=== PATIENT | male | born 2000 | race Caucasian/White ===

== ENCOUNTER 2021-04-10 17:49 | Emergency (ER) | payer OTHER, SELFPAY ==
--- NOTE | 2021-04-10 07:33 | ECG_ITS ---
Test Reason : TACHY Blood Pressure : / mmHG Vent. Rate : 154 BPM Atrial Rate : 156 BPM P-R Int : 000 ms QRS Dur : 142 ms QT Int : 340 ms P-R-T Axes : 000 224 036 degrees QTc Int : 544 ms Wide QRS tachycardia with occasional Premature ventricular complexes Right bundle branch block (old) - likely SVT with abberancy Abnormal ECG When compared with ECG of 15-FEB-2020 15:38, Wide QRS tachycardia has replaced Sinus rhythm Vent. rate has increased BY 64 BPM Referred By: Torres Daley Electronically Signed By:Paul Ny
[2021-04-10 17:59] VITALS: BP 116/75; PULSE 116; PULSE 73; RESP 16; TEMP 36.8; O2SAT 96; BMI 19.5
--- NOTE | 2021-04-10 18:14 | ED.ARRPALP ---
HPI - Arrhythmia/Palpitations General Chief Complaint: Arrhythmia/Palpitations Stated Complaint: SVT CHEST PAIN Time Seen by Provider: 04/10/21 18:13 Source: patient Mode of arrival: ambulatory Limitations: no limitations History of Present Illness HPI narrative: Patient's history of tetralogy of Fallot is status post repair SVT on verapamil 240 mg daily missed his dosed today noticed palpitations since yesterday evening. Patient does get palpitation off and on this time is not going away no dizziness no shortness of breath feel little chest discomfort with palpitations. MD complaint: rapid heart beat Related Data Allergies Allergy/AdvReac Type Severity Reaction Status Date / Time citalopram [CITALOPRAM] Allergy Severe THROAT Unverified 08/18/20 19:43 SWELLING, ANXIETY diphenhydramine Allergy Difficulty Verified 04/10/21 18:02 [From Benadryl] Breathing Review of Systems Review of Systems: Constitutional : No Weight loss, No Fever, No Chills ENT/Mouth : No sore throat, No Rhinorrhea Eyes: No Eye Pain, No Swelling Cardiovascular : No Chest Pain, + palpitations Respiratory : No Cough, No Sputum, no shortness of breath Gastrointestinal : no Nausea, No Vomiting, No Diarrhea, No abdominal Pain, no black stools Genitourinary : No Dysuria, No Urinary Frequency Musculoskeletal : No joint pain, No Myalgias, No Joint Swelling Skin : No Skin Lesions, No rash Neuro : No Weakness, No Numbness, No Dizziness, No Headache Psych : No Anxiety/Panic, No Depression Heme/Lymph: No Bruising, No Lymphadenopathy Endocrine : No Polyuria, No Polydipsia All other systems reviewed and are negative COUNTS INCLUDE 234 BEDS AT THE [facility] Past Medical History Medical History RBBB SVT (supraventricular tachycardia) Tetralogy of Fallot Social History Social History Advance Directives: No Advance Directives Information Provided: Yes Physical Exam Vital Signs: Vital Signs: Last Vital Signs Temp 98.2 F 04/10/21 17:59 Pulse 153 H 04/10/21 18:26 Resp 16 04/10/21 17:59 BP 122/62 04/10/21 18:26 Pulse Ox 96 04/10/21 17:59 Body Mass Index 19.5 Appearance: Alert. Oriented X3. No acute distress. Eyes: PERRLA, No Nystagmus ENT: Pharynx normal. Oral Mucosa moist Neck: Normal inspection. Neck supple. CVS: Sinus tachycardia, soft systolic murmur at base, Pulses normal. Respiratory: No respiratory distress. Equal air entry bilateral, no wheezing/rales/rhonchi Abdomen: Soft and nontender. Bowel sounds are present, no mass palpable, no CVA tenderness Skin: Skin warm and dry. Normal skin color. Normal skin turgor. Extremities: No lower extremity edema. No calf tenderness Neuro: Oriented X 3. No motor deficit. No sensory deficit.No cerebellar signs , cranial nerves II-XII intact MDM - Arrhythmia/Palpitations MDM Narrative Medical decision making narrative: Patient with supraventricular tachycardia came with heart rate of 130s to 150s missed his dose of verapamil, history of tetralogy of Fallot. Patient responded to 5 mg of Lopressor heart rate is 61 beats per minute sinus discharge patient home advised to take his verapamil on time has a follow-up appointment with control room operator this week Differential Diagnosis Differential diagnosis: Likely palpitations and supraventricular tachycardia ECG Data Attestation: I personally reviewed and interpreted this ECG as follows: Interpretation: Wide QRS tachycardia had bundle-branch block heart rate 154 beats per minute no acute ST T wave changes no acute ischemia Discharge Plan Discharge Clinical Impression: Supraventricular tachycardia Patient Disposition: Home, Self-Care Instructions: Supraventricular Tachycardia (ED) Additional Instructions: Continue taking your medications on time Follow up with control room operator as scheduled
[2021-04-10 18:26] VITALS: BP 122/62; PULSE 153
[2021-04-10] MEDS: Metoprolol Tartrate 5 MG/5 ML VIAL IVPUSH (18:26)
== END 2021-04-10 19:15 | disposition home or self-care (01) ==
PROVIDERS: Emergency Provider Internal Medicine
DX: I47.1 Supraventricular tachycardia (principal); R00.2 Palpitations
CPT/HCPCS: 93005; 96374; 99283; 99284

== ENCOUNTER 2021-04-23 08:45 | Emergency (ER) | payer OTHER, SELFPAY ==
[2021-04-23 08:53] VITALS: BP 130/78; BP 135/72; PULSE 83; PULSE 98; RESP 16; TEMP 37.2; O2SAT 95; BMI 19.3
--- NOTE | 2021-04-23 09:16 | ED.WOUNDLAC ---
HPI - Wound/Laceration General Chief Complaint: Wound/Laceration Stated Complaint: LAFT ARM LAC, BLEEDING CONTROLLED,ACCIDENTAL Time Seen by Provider: 04/23/21 09:01 Source: patient Mode of arrival: ambulatory Limitations: no limitations History of Present Illness HPI narrative: Patient presents to the ED for left forearm laceration. Patient states he was cut by glass from his window that was already shattered. Patient states he was cleaningthe glass and got cut. Patient unknown when he had his last tetanus shot. Denies any glass particles get into his cut. Patient denies any other trauma Related Data Allergies Allergy/AdvReac Type Severity Reaction Status Date / Time citalopram [CITALOPRAM] Allergy Severe THROAT Unverified 08/18/20 19:43 SWELLING, ANXIETY diphenhydramine Allergy Difficulty Verified 04/10/21 18:02 [From Benadryl] Breathing Review of Systems Review of Systems: Yes all other systems are reviewed and are negative Constitutional: Constitutional: Reports as per HPI and Reports no additional constitutional complaints Eyes: Eyes: Reports as per HPI and Reports no additional eye complaints ENT: Reports system reviewed and no additional complaints, except as documented and Reports as per HPI Cardiovascular: Cardiovascular: Reports as per HPI and Reports no additional cardiovascular complaints Respiratory: Respiratory: Reports as per HPI and Reports no additional respiratory complaints Gastrointestinal: Gastrointestinal: Reports as per HPI and Reports no additional gastrointestinal complaints Genitourinary: Genitourinary: Reports no additional male genitourinary complaints and Reports as per HPI Musculoskeletal: Musculoskeletal: Reports no additional musculoskeletal complaints and Reports as per HPI Comments: Left forearm laceration Neurologic: Reports system reviewed and no additional complaints, except as documented and Reports as per HPI Psychiatric: Psychiatric: Reports no additional psychiatric complaints and Reports as per HPI [facility] Past Medical History Medical History (Updated 04/23/21 @ 11:03 by BAM [place]) HTN (hypertension) RBBB SVT (supraventricular tachycardia) Tetralogy of Fallot Social History Social History Advance Directives: No Advance Directives Information Provided: No Physical Exam Vital Signs: Vital Signs: Last Vital Signs Temp 98.9 F 04/23/21 08:53 Pulse 98 04/23/21 08:53 Resp 16 04/23/21 08:53 BP 135/72 04/23/21 08:53 Pulse Ox 95 04/23/21 08:53 Body Mass Index 19.3 Const: General: cooperative, healthy appearing, comfortable, no acute distress and well developed Orientation/consciousness: oriented to time and patient oriented x3 HENMT: Head: Yes normal to inspection, Yes No palpable skull fracture present, Yes normocephalic, Yes atraumatic and Yes abrasion Eyes: General: appearance normal, both eyes and all related structures Neck: Neck: Yes normal visual inspection, Yes full ROM, Yes no lymphadenopathy, Yes no meningeal signs, Yes trachea midline, Yes supple and Yes tender Chest: Chest palpation & inspection: normal inspection of the chest and normal palpation of entire chest wall Resp: Effort & Inspection: normal respiratory effort and able to speak in complete sentences Auscultation: clear to auscultation bilaterally GI: Inspection: Yes normal to inspection and No abdominal wall ecchymosis Palpation (GI): Soft to palpation, not firm, nontender, no guarding and not rigid : General: No CVA tenderness and Yes no CVA tenderness Back/Spine/Pelvis: Back: no CVA tenderness, No CVA tenderness and No back tenderness Skin: General skin exam: no rashes or lesions noted and elasticity normal Neuro: General: oriented to time, patient oriented x3, no meningeal signs and CN's II-XI intact bilaterally Cranial nerves: Yes CN's II-XII intact bilaterally Extrem: Other: Left upper extremity: Positive for 1.5 cm laceration. No active bleeding. Rest of upper extremity for trauma per vascular/motor/neuro exam is intact. Course Course Course Narrative: No x-ray indicated. Laceration superficial will cool washout. Reevaluation(s) Reevaluation #1: Wound clean with sterile saline and Betadine iodine. 6 mL of 2% lidocaine placed into wound to left forearm. Ice 3 sutures were used. Four sutures placed. Reevaluation #2: During washout of wound fluid got into upper eyelid fluid with possible blood. Patient agreeable for labs for exposure check for HIV hepatitis MDM - Wound/Laceration MDM Narrative Medical decision making narrative: Laceration Lab Data Result diagrams: 04/23/21 10:20 04/23/21 10:20 Labs: Lab Results 04/23/21 04/23/21 04/23/21 Range/Units 10:20 10:20 10:20 WBC 6.7 (4.8-10.8) X10*3/uL RBC 5.94 H (4.60-5.80) X10*6/uL Hgb 17.2 (14.0-18.0) g/dl Hct 52.3 H (42-52) % MCV 88.0 (80-98) fL MCH 29.0 (27.0-33.0) pg MCHC 32.9 (31.0-36.0) g/dl RDW 11.9 (11.0-16.0) % Plt Count 259 (160-400) X10*3/uL MPV 11.1 (9.4-12.4) fL Immature Gran % (Auto) 0.3 (0.0-0.4) % Neut % (Auto) 72.8 (45-73) % Lymph % (Auto) 16.5 L (20-40) % Hill % (Auto) 7.7 (2-11) % Eos % (Auto) 2.1 (0-4) % Baso % (Auto) 0.6 (0-2) % Lymph # (Auto) 1.1 L (1.2-4.9) X10*3/uL Hill # (Auto) 0.5 (0.1-1.2) X10*3/uL Eos # (Auto) 0.1 (0.0-0.4) X10*3/uL Baso # (Auto) 0.0 (0.0-0.2) X10*3/uL Abs Immat Gran (auto) 0.02 (0.00-0.03) X10*3/uL Absolute Neuts (auto) 4.8 (2.0-8.3) X10*3/uL Absolute Nucleated RBC 0.000 (0.0-0.012) X10*3/uL Nucleated RBC % (auto) 0.0 (0.0-0.2) /100WBC Sodium 142 (135-145) mmol/L Potassium 5.1 (3.3-5.1) mmol/L Chloride 106 (96-108) mmol/L Carbon Dioxide 26 (22-29) mmol/L Anion Gap 15 (12-20) BUN 15 (9-16) mg/dL Creatinine 0.92 (0.5-1.4) mg/dL Estim Creat Clear Calc 111.3 Estimated GFR > 60 Random Glucose 87 (60-115) mg/dL Calcium 10.4 H (8.4-10.2) mg/dL Total Bilirubin 1.0 (0.0-1.0) mg/dL Direct Bilirubin 0.3 (0.0-0.5) mg/dL AST 23 (5-37) U/L ALT 20 (0-40) U/L Alkaline Phosphatase 108 (39-117) U/L Total Protein 8.2 H (6.5-8.0) g/dL Albumin 5.0 (3.5-5.0) g/dL HIV 1&2 Ab/P24 Ag 4thGn Nonreactive (Nonreactive) Discharge Plan Discharge Clinical Impression: Laceration Patient Disposition: Home, Self-Care Instructions: Laceration (ED) Additional Instructions: Return to the ED immediately for swelling upper extremity, foul odor, redness, pus discharge, chest pain, shortness of breath, or any other concerning symptoms. Sutures should be removed in 11 days at any urgent Care, your [facility] or dizzy ER. Interventions: ED Discharge Assessment Last Done: 04/23/21 11:22 Discharge Date/Time: 04/23/21 11:23
[2021-04-23] MEDS: Diphth,Pertus(ACell),Tet Adult 0.5 ML SYRINGE IM (09:17)
[2021-04-23] MEDS: Lidocaine HCl 2 % MPF 5 ML VIAL INFILTRATI ×2 (09:18)
[2021-04-23 10:24] LABS: MANUAL DIFF FLAG NO
[2021-04-23 10:25] LABS: Basophils Percent Auto 0.6 % (0-2); Eosinophils Absolute Auto 0.1 X10*3/uL (0.0-0.4); Eosinophils Percent Auto 2.1 % (0-4); Hematocrit 52.3 % (42-52); Hemoglobin 17.2 g/dl (14.0-18.0); Imm Gran Abs Auto 0.02 X10*3/uL (0.00-0.03); Imm Gran Pct Auto 0.3 % (0.0-0.4); Lymphocytes Absolute Auto 1.1 X10*3/uL (1.2-4.9); Lymphocytes Percent Auto 16.5 % (20-40); Mean Corpuscular HGB Conc 32.9 g/dl (31.0-36.0); Mean Platelet Volume 11.1 fL (9.4-12.4); Monocytes Absolute Auto 0.5 X10*3/uL (0.1-1.2); Monocytes Percent Auto 7.7 % (2-11); Neutrophils Absolute Auto 4.8 X10*3/uL (2.0-8.3); Neutrophils Percent Auto 72.8 % (45-73); Platelet Count 259 X10*3/uL (160-400); Red Blood Count 5.94 X10*6/uL (4.60-5.80); Red Cell Distribution Width 11.9 % (11.0-16.0); White Blood Count 6.7 X10*3/uL (4.8-10.8)
[2021-04-23 10:52] LABS: Alanine Aminotransferase 20 U/L (0-40); Alkaline Phosphatase 108 U/L (39-117); Anion Gap 15 (12-20); Aspartate Amino Transferase 23 U/L (5-37); Bilirubin Direct 0.3 mg/dL (0.0-0.5); Blood Urea Nitrogen 15 mg/dL (9-16); Calcium 10.4 mg/dL (8.4-10.2); Carbon Dioxide 26 mmol/L (22-29); Chloride 106 mmol/L (96-108); Creatinine Clr Calc Pharmacy 111.3; Estimated Glomerular Filt Rate > 60; Glucose Random 87 mg/dL (60-115); Potassium 5.1 mmol/L (3.3-5.1); Sodium 142 mmol/L (135-145); Total Protein 8.2 g/dL (6.5-8.0)
[2021-04-23 12:00] LABS: HIV AB/AG Nonreactive (Nonreactive)
[2021-04-24 08:44] LABS: HBS Num1 8.32 mIU/mL (0-7.99); HBc Num1 0.08 S/CO (0.00-0.79); Hepatitis B Core Antibody Nonreactive (Nonreactive); ~HepC Num1 0.07 S/CO (0.00-0.79); ~Hepatitis C Antibody Nonreactive (Nonreactive)
[2021-04-24 08:45] LABS: HBsAGNum1 0.19 S/CO (0.00-0.99); HIV Num 1 0.05 S/CO (0.00-0.99); Hepatitis B Surface Antigen Negative (Negative)
[2021-04-24 10:12] LABS: HBS Num2 9.02 mIU/mL (0-7.99); HBS Num3 8.86 mIU/mL (0-7.99); ~Hepatitis B Surface Antibody GRAYZONE (Nonreactive)
== END 2021-04-23 11:23 | disposition home or self-care (01) ==
PROVIDERS: Physician Assistant; Emergency Provider Emergency Medicine
DX: S51.812A Laceration without foreign body of left forearm, initial encounter (principal); M79.632 Pain in left forearm; W25.XXXA Contact with sharp glass, initial encounter; Y93.9 Activity, unspecified; Y92.9 Unspecified place or not applicable; Y99.9 Unspecified external cause status
CPT/HCPCS: 12001; 36415; 80048; 80076; 85025; 86704; 86706; 86803; 87340; 90471; 90715; 99283; 99284

== ENCOUNTER 2021-05-01 18:10 | Emergency (ER) | payer OTHER, SELFPAY ==
[2021-05-01 18:59] VITALS: BP 123/73; PULSE 85; RESP 20; TEMP 36.2; O2SAT 93; BMI 26.6
--- NOTE | 2021-05-01 19:47 | ED.GENADULT ---
HPI - General Adult General Chief complaint: General Medical Stated complaint: suture removal Time Seen by Provider: 05/01/21 19:25 Source: patient Mode of arrival: ambulatory Limitations: no limitations History of Present Illness HPI narrative: Patient here for suture removal on the left forearm. Placed 04/23 No issues Related Data Allergies Allergy/AdvReac Type Severity Reaction Status Date / Time citalopram [CITALOPRAM] Allergy Severe THROAT Verified 05/01/21 18:58 SWELLING, ANXIETY diphenhydramine Allergy Difficulty Verified 05/01/21 18:58 [From Benadryl] Breathing Review of Systems Review of Systems: Yes all other systems are reviewed and are negative Constitutional: Constitutional: Reports no additional constitutional complaints, Denies body ache(s), Denies chills, Denies fever(s), Denies headache(s) and Denies weakness Eyes: Eyes: Reports no additional eye complaints and Denies change in vision ENT: Reports system reviewed and no additional complaints, except as documented, Denies dizziness, Denies headache(s), Denies nasal congestion, Denies nasal discharge and Denies neck pain Cardiovascular: Cardiovascular: Reports no additional cardiovascular complaints, Denies chest pain, Denies leg edema and Denies dyspnea Respiratory: Respiratory: Reports no additional respiratory complaints, Denies cough and Denies dyspnea Gastrointestinal: Gastrointestinal: Reports no additional gastrointestinal complaints, Denies abdominal pain, Denies diarrhea, Denies nausea and Denies vomiting Genitourinary: Genitourinary: Denies urinary incontinence Musculoskeletal: Musculoskeletal: Reports no additional musculoskeletal complaints, Denies back pain, Denies arthralgias, Denies joint swelling, Denies neck pain, Denies numbness and Denies tingling Integumentary/Breasts: Skin/Breast: Reports system reviewed and no additional complaints, except as docu and Denies rash Neurologic: Reports system reviewed and no additional complaints, except as documented, Denies Abnormal speech present, Denies dizziness, Denies headache(s), Denies numbness, Denies tingling and Denies weakness PMFSH Past Medical History Attestation statement: The following information was validated with the patient. Source: old records reviewed and nursing notes reviewed Medical History HTN (hypertension) RBBB SVT (supraventricular tachycardia) Tetralogy of Fallot Social History Social History Advance Directives: No Advance Directives Information Provided: No Physical Exam Vital Signs: Vital Signs: Last Vital Signs Temp 97.2 F 05/01/21 18:59 Pulse 85 05/01/21 18:59 Resp 20 05/01/21 18:59 BP 123/73 05/01/21 18:59 Pulse Ox 93 05/01/21 18:59 Body Mass Index 26.6 Const: General: cooperative, healthy appearing, comfortable and no acute distress Orientation/consciousness: patient oriented x3 Limitations: no limitations HENMT: Head: Yes normal to inspection Ears: hearing grossly normal bilaterally General nose exam: Normal external nose present Face and sinus: Yes normal facial exam Mouth: Normal oral and palatal mucosa present Throat: Yes posterior oropharynx normal Eyes: General: appearance normal, both eyes and all related structures Pupils: Equal, round and reactive pupils present Neck: Neck: Yes normal visual inspection Chest: Chest palpation & inspection: normal inspection of the chest Resp: Effort & Inspection: normal respiratory effort Auscultation: clear to auscultation bilaterally Cardio: Rate: regular rate Rhythm: regular rhythm Peripheral pulses: Peripheral pulses 2+ throughout GI: Inspection: Yes normal to inspection Palpation (GI): Soft to palpation and nontender Auscultation: normal bowel sounds Back/Spine/Pelvis: Thoracic/Lumbar Spine: thoracic and lumbar spine normal to inspection Skin: General skin exam: no rashes or lesions noted Neuro: General: patient oriented x3, no focal motor deficits and normal sensation to monofilament Cranial nerves: Yes Equal, round and reactive pupils present Cognition (Neuro): normal cognition Speech: No Abnormal speech present Gait exam (Neuro): Normal gait present Motor exam (neuro): 5/5 motor strength present throughout Extrem: Other: The left forearm on the dorsal aspect there are 4 sutures present. Mild erythema around the site but no fluctuance, or induration or drainage General: Yes normal to inspection, Yes no pedal edema and Yes no calf tenderness Course Course Course Narrative: Sutures removed from left forearm. Steri-Strips applied. Wound care provided. Reviewed worrisome signs and symptoms and when to return to the emergency department. Comfortable discharge home. Medical Decision Making MDM Narrative Medical decision making narrative: Four sutures removed from left forearm. Mild erythema at the site with no drainage, fluctuance or tenderness. Steri-Strips placed. Patient tolerated well Discharge Plan Discharge Clinical Impression: Visit for suture removal Patient Disposition: Home, Self-Care Instructions: Stitches Removal (ED) Referrals: Physician,Unknown [Primary Care Provider] - 2 days Discharge Date/Time: 05/01/21 19:48
== END 2021-05-01 19:48 | disposition home or self-care (01) ==
PROVIDERS: Emergency Provider Emergency Medicine
DX: Z48.02 Encounter for removal of sutures (principal); S51.812D Laceration without foreign body of left forearm, subsequent encounter; W45.8XXD Other foreign body or object entering through skin, subsequent encounter
CPT/HCPCS: 99283

== ENCOUNTER 2021-06-08 19:26 | Emergency (ER) | payer OTHER, SELFPAY ==
--- NOTE | ~2021-06-08 | XR_ITS ---
EXAMINATION: XR HAND, RIGHT CLINICAL INFORMATION: Injury COMPARISON: None TECHNIQUE: 4 views of the right hand FINDINGS: Soft tissue swelling dorsal to the 5th MCP joint. There is no acute fracture or dislocation. No radiopaque foreign body. XR/XR hand wrist RT IMPRESSION: No fracture.
[2021-06-08 19:33] VITALS: BP 139/74; PULSE 144; RESP 16; TEMP 36.2; O2SAT 100; BMI 18.2
[2021-06-08 20:30] VITALS: PULSE 96; RESP 18; O2SAT 100
--- NOTE | 2021-06-08 20:30 | PC.NURSE ---
COLD PACK GIVEN TO RIGHT HAND.
--- NOTE | 2021-06-08 20:56 | ED.EXTPRO ---
HPI - Extremity Problem General Chief complaint: Extremity Injury, Upper Stated complaint: hand inj Time Seen by Provider: 06/08/21 19:47 Source: patient Mode of arrival: ambulatory Limitations: no limitations History of Present Illness HPI Narrative: 21-year-old male here with right hand pain. Patient tells me he got very angry today and decided to punch a brick wall twice with his right hand. He now has pain, swelling and difficulty using the hand. Related Data Allergies Allergy/AdvReac Type Severity Reaction Status Date / Time citalopram [CITALOPRAM] Allergy Severe THROAT Verified 05/01/21 18:58 SWELLING, ANXIETY diphenhydramine Allergy Difficulty Verified 05/01/21 18:58 [From Benadryl] Breathing Review of Systems Review of Systems: Yes all other systems are reviewed and are negative Constitutional: Constitutional: Reports no additional constitutional complaints, Denies body ache(s), Denies chills, Denies fever(s), Denies headache(s) and Denies weakness Eyes: Eyes: Reports no additional eye complaints and Denies change in vision ENT: Reports system reviewed and no additional complaints, except as documented, Denies dizziness, Denies headache(s), Denies nasal congestion, Denies nasal discharge and Denies neck pain Cardiovascular: Cardiovascular: Reports no additional cardiovascular complaints, Denies chest pain, Denies leg edema and Denies dyspnea Respiratory: Respiratory: Reports no additional respiratory complaints, Denies cough and Denies dyspnea Gastrointestinal: Gastrointestinal: Reports no additional gastrointestinal complaints, Denies abdominal pain, Denies diarrhea, Denies nausea and Denies vomiting Genitourinary: Genitourinary: Denies urinary incontinence Musculoskeletal: Musculoskeletal: Reports no additional musculoskeletal complaints, Denies back pain, Reports arthralgias, Reports joint swelling, Denies neck pain, Denies numbness and Denies tingling Integumentary/Breasts: Skin/Breast: Reports system reviewed and no additional complaints, except as docu and Denies rash Neurologic: Reports system reviewed and no additional complaints, except as documented, Denies Abnormal speech present, Denies dizziness, Denies headache(s), Denies numbness, Denies tingling and Denies weakness PMFSH Past Medical History Attestation statement: The following information was validated with the patient. Source: old records reviewed and nursing notes reviewed Medical History HTN (hypertension) RBBB SVT (supraventricular tachycardia) Tetralogy of Fallot Social History Social History Advance Directives: No Advance Directives Information Provided: No Physical Exam Vital Signs: Vital Signs: Last Vital Signs Temp 97.1 F 06/08/21 19:33 Pulse 96 06/08/21 20:30 Resp 18 06/08/21 20:30 BP 139/74 06/08/21 19:33 Pulse Ox 100 06/08/21 20:30 Body Mass Index 18.2 Const: General: cooperative, healthy appearing, comfortable and no acute distress Orientation/consciousness: patient oriented x3 Limitations: no limitations HENMT: Head: Yes normal to inspection Ears: hearing grossly normal bilaterally General nose exam: Normal external nose present Face and sinus: Yes normal facial exam Mouth: Normal oral and palatal mucosa present Throat: Yes posterior oropharynx normal Eyes: General: appearance normal, both eyes and all related structures Pupils: Equal, round and reactive pupils present Neck: Neck: Yes normal visual inspection Chest: Chest palpation & inspection: normal inspection of the chest Resp: Effort & Inspection: normal respiratory effort Auscultation: clear to auscultation bilaterally Cardio: Rate: regular rate Rhythm: regular rhythm Peripheral pulses: Peripheral pulses 2+ throughout GI: Inspection: Yes normal to inspection Palpation (GI): Soft to palpation and nontender Auscultation: normal bowel sounds Back/Spine/Pelvis: Thoracic/Lumbar Spine: thoracic and lumbar spine normal to inspection Skin: General skin exam: no rashes or lesions noted Neuro: General: patient oriented x3, no focal motor deficits and normal sensation to monofilament Cranial nerves: Yes Equal, round and reactive pupils present Cognition (Neuro): normal cognition Speech: No Abnormal speech present Gait exam (Neuro): Normal gait present Motor exam (neuro): 5/5 motor strength present throughout Extrem: General: Yes normal to inspection Hand/finger images: 1. Moderate swelling, ecchymosis and tenderness. patient having significant difficulty with flexion of the 4th and 5th digit due to pain. No paresthesias. Cap refills normal Course Course Course Narrative: right hand swelling and pain after a injury just prior to arrival. will check x-rays 2030- x-ray show no bony abnormality. Due to the amount of swelling, ecchymosis, tenderness with difficulty range of motion I am concerned there may be a small boxer's fracture that is not visualized. Therefore, I will place the patient in a ulnar gutter splint and have him follow-up with Orthopedics. Reviewed worrisome signs and symptoms and when to return to the emergency department. Comfortable discharge home. Procedures Orthopedic Splinting/Casting Injury #1: Side: right Upper Extremity Injury Location: hand Upper Extremity Immobilizer: ulnar gutter MDM - Extremity (Nontraumatic) Medical Records Attestation: I reviewed the patient's medical records. Lab Data Attestation: I reviewed the patient's lab results. Imaging Data right hand xray: Attestation: I personally reviewed and interpreted this imaging study as follows: Radiologist's impression: EXAMINATION: XR HAND, RIGHT CLINICAL INFORMATION: Injury COMPARISON: None TECHNIQUE: 4 views of the right hand FINDINGS: Soft tissue swelling dorsal to the 5th MCP joint. There is no acute fracture or dislocation. No radiopaque foreign body. XR/XR hand wrist RT IMPRESSION: No fracture. Discharge Plan Discharge Clinical Impression: Contusion of hand, right Qualifiers: Encounter type: initial encounter Qualified Code(s): S60.221A - Contusion of right hand, initial encounter Patient Disposition: Home, Self-Care Instructions: Contusion in Adults (ED) Additional Instructions: your x-rays did not show any fracture. However due to the amount of pain and swelling with limited range of motion we are placing you in a splint. You need to follow-up with the hand surgeon as discussed Do not get the splint wet Elevate the hand and do not use it. Motrin or Tylenol for pain as needed Referrals: Madai Patton MD [Physician] - 2 days
== END 2021-06-08 21:37 | disposition home or self-care (01) ==
PROVIDERS: Emergency Provider Emergency Medicine Emergency Medical Services
DX: S60.221A Contusion of right hand, initial encounter (principal); I10 Essential (primary) hypertension; W22.09XA Striking against other stationary object, initial encounter; Y93.9 Activity, unspecified; Y92.9 Unspecified place or not applicable; Y99.9 Unspecified external cause status
CPT/HCPCS: 29125; 73110; 73130; 99283; 99284

== ENCOUNTER 2021-06-14 12:23 | Outpatient (REF) | payer OTHER, SELFPAY ==
--- NOTE | ~2021-06-14 | XR_ITS ---
EXAMINATION: XR HAND, RIGHT CLINICAL INFORMATION: Right hand pain. COMPARISON: Right hand and wrist radiographs dated 06/08/2021. TECHNIQUE: PA, lateral, and oblique views of the right hand. FINDINGS: The bones and soft tissues are normal. No fracture. Alignment is anatomic. Joint spaces are maintained. No erosions or soft tissue calcifications. XR/XR hand RT min 3V IMPRESSION: Unremarkable examination.
== END 2021-06-14 12:24 | disposition home or self-care (01) ==
LOC: HO.HOSX 12:23
PROVIDERS: Visit Provider Physician Assistant
DX: M79.641 Pain in right hand (principal)
CPT/HCPCS: 73130; 99202

== ENCOUNTER 2021-07-12 06:01 | Outpatient (REF) | payer OTHER, SELFPAY | END 2021-07-12 06:02 | disposition home or self-care (01) | LOC: HO.HOSX 06:01 | PROVIDERS: Visit Provider Physician Assistant | DX: Z13.89 Encounter for screening for other disorder (principal) ==

== ENCOUNTER 2021-07-14 18:46 | Emergency (ER) | payer OTHER, SELFPAY ==
--- NOTE | ~2021-07-14 | XR_ITS ---
EXAMINATION: XR HAND, RIGHT CLINICAL INFORMATION: Pain COMPARISON: None TECHNIQUE: PA, lateral, and oblique views of the right hand. FINDINGS: The bones and soft tissues are normal. No fracture. Alignment is anatomic. Joint spaces are maintained. No erosions or soft tissue calcifications. XR/XR hand RT 2V IMPRESSION: Normal right hand.
[2021-07-14 18:53] VITALS: BP 123/69; PULSE 81; RESP 16; TEMP 36.5; O2SAT 98; BMI 18.1
--- NOTE | 2021-07-14 20:40 | ED_ITS ---
HPI - Extremity Problem General Chief complaint: Extremity Problem Stated complaint: KNUCKLE INJ Time Seen by Provider: 07/14/21 19:34 Source: patient Mode of arrival: ambulatory Limitations: no limitations History of Present Illness HPI Narrative: patient tells me initially he had an injury on June 08 with a hand strike. Was placed in a splint and followed up with Orthopedics due to bruising and pain on exam. Initial x-ray negative. Patient tells me he followed up with orthopedics on June 14. He was then placed in a velcro splint and recommended follow-up July 12 to see how he was feeling. Patient did not go to his follow-up appointment. He tells me he continues to have pain and bruising and swelling and is here for re-evaluation. No new injury or trauma. Related Data Home Medications Medication Instructions Recorded Confirmed No Known Home Meds 06/14/21 06/14/21 Allergies Allergy/AdvReac Type Severity Reaction Status Date / Time citalopram [CITALOPRAM] Allergy Severe THROAT Verified 06/14/21 12:35 SWELLING, ANXIETY diphenhydramine Allergy Difficulty Verified 06/14/21 12:35 [From Benadryl] Breathing Review of Systems Review of Systems: Yes all other systems are reviewed and are negative Constitutional: Constitutional: Reports no additional constitutional complaints, Denies body ache(s), Denies chills, Denies fever(s), Denies hea dache(s) and Denies weakness Eyes: Eyes: Reports no additional eye complaints and Denies change in vision ENT: Reports system reviewed and no additional complaints, except as documented, Denies dizziness, Denies headache(s), Denies nasal congestion, Denies nasal discharge and Denies neck pain Cardiovascular: Cardiovascular: Reports no additional cardiovascular complaints, Denies chest pain, Denies leg edema and Denies dyspnea Respiratory: Respiratory: Reports no additional respiratory complaints, Denies cough and Denies dyspnea Gastrointestinal: Gastrointestinal: Reports no additional gastrointestinal complaints, Denies abdominal pain, Denies diarrhea, Denies nausea and Denies vomiting Genitourinary: Genitourinary: Denies urinary incontinence Musculoskeletal: Musculoskeletal: Reports no additional musculoskeletal complaints, Denies back pain, Reports arthralgias, Reports joint swelling, Denies neck pain, Denies numbness and Denies tingling Integumentary/Breasts: Skin/Breast: Reports system reviewed and no additional complaints, except as docu and Denies rash Neurologic: Reports system reviewed and no additional complaints, except as documented, Denies Abnormal speech present, Denies dizziness, Denies headache(s), Denies numbness, Denies tingling and Denies weakness PMFSH Past Medical History Attestation statement: The following information was validated with the patient. Source: old records reviewed and nursing notes reviewed Medical History HTN (hypertension) RBBB SVT (supraventricular tachycardia) Tetralogy of Fallot Social History Social History Alcohol intake: current Alcohol intake frequency: holidays/special occasions only Patient Tobacco Use Status: Never used Tobacco Advance Directives: No Advance Directives Information Provided: No Physical Exam Vital Signs: Vital Signs: Last Vital Signs Temp 97.7 F 07/14/21 18:53 Pulse 81 07/14/21 18:53 Resp 16 07/14/21 18:53 BP 123/69 07/14/21 18:53 Pulse Ox 98 07/14/21 18:53 Body Mass Index 18.1 Const: General: cooperative, healthy appearing, comfortable and no acute distress Orientation/consciousness: patient oriented x3 Limitations: no limitations HENMT: Head: Yes normal to inspection Ears: hearing grossly normal bilaterally General nose exam: Normal external nose present Face and sinus: Yes normal facial exam Mouth: Normal oral and palatal mucosa present Throat: Yes posterior oropharynx normal Eyes: General: appearance normal, both eyes and all related structures Pupils: Equal, round and reactive pupils present Neck: Neck: Yes normal visual inspection Chest: Chest palpation & inspection: normal inspection of the chest Resp: Effort & Inspection: normal respiratory effort Auscultation: clear to auscultation bilaterally Cardio: Rate: regular rate Rhythm: regular rhythm Peripheral pulses: Peripheral pulses 2+ throughout GI: Inspection: Yes normal to inspection Palpation (GI): Soft to palpation and nontender Auscultation: normal bowel sounds Back/Spine/Pelvis: Thoracic/Lumbar Spine: thoracic and lumbar spine normal to inspection Skin: General skin exam: no rashes or lesions noted Neuro: General: patient oriented x3, no focal motor deficits and normal sensation to monofilament Cranial nerves: Yes Equal, round and reactive pupils present Cognition (Neuro): normal cognition Speech: No Abnormal speech present Gait exam (Neuro): Normal gait present Motor exam (neuro): 5/5 motor strength present throughout Extrem: Other: Bruising and swelling with some pain over the distal 5th MCP Full range of motion General: Yes normal to inspection Course Course Course Narrative: 21-year-old here with complaints of right hand pain which has been persistent after an injury in June. Unfortunately he has not followed up with orthopedics as scheduled. No new injury or trauma. X-rays today show no acute finding. Patient has a velcro that he is supposed to be wearing at home. Recommend he continue to wear this. Follow-up with Orthopedics. Reviewed worrisome signs and symptoms of when to return to the emergency department. Comfortable discharge home. MDM - Extremity (Nontraumatic) Medical Records Attestation: I reviewed the patient's medical records. Lab Data Attestation: I reviewed the patient's lab results. Imaging Data hand xray: Attestation: I personally reviewed and interpreted this imaging study as follows: Radiologist's impression: [address] [address] XRay Report Signed Patient: Codey Mcdonough MR#: [id number] : 2000 Acct:[id number] Age/Sex: 21 / M ADM Date: 07/14/21 Loc: .ED Attending Dr: Ordering Physician: Sakina Flores NP Date of Service: 07/14/21 Procedure(s): XR hand RT 2V Accession Number(s): [id number] cc: Sakina Flores NP~ EXAMINATION: XR HAND, RIGHT CLINICAL INFORMATION: Pain? COMPARISON: None? TECHNIQUE: PA, lateral, and oblique views of the right hand. FINDINGS: The bones and soft tissues are normal. No fracture. Alignment is anatomic. Joint spaces are maintained. No erosions or soft tissue calcifications.? XR/XR hand RT 2V IMPRESSION: Normal right hand. Discharge Plan Discharge Clinical Impression: Hand pain, right Patient Disposition: Home, Self-Care Instructions: Arthralgia (ED) Additional Instructions: Use the splint provided by Orthopedics Call orthopedics on [place] Limit use of the hand, apply ice Prescriptions: No Action No Known Home Meds RF: 0 Referrals: Joshua Fleming MD [Physician] - 2 days Interventions: ED Discharge Assessment Last Done: 07/14/21 20:25 Discharge Date/Time: 07/14/21 20:26
== END 2021-07-14 20:26 | disposition home or self-care (01) ==
PROVIDERS: Emergency Provider Emergency Medicine
DX: M79.641 Pain in right hand (principal)
CPT/HCPCS: 73120; 99283

== ENCOUNTER 2021-07-20 17:05 | Emergency (ER) | payer OTHER, SELFPAY ==
[2021-07-20 17:24] VITALS: BP 114/77; PULSE 141; RESP 16; TEMP 36.9; O2SAT 96; BMI 18.1
--- NOTE | 2021-07-20 17:29 | ECG_ITS ---
Test Reason : TACHY Blood Pressure : / mmHG Vent. Rate : 135 BPM Atrial Rate : 044 BPM P-R Int : 000 ms QRS Dur : 160 ms QT Int : 356 ms P-R-T Axes : 000 233 038 degrees QTc Int : 534 ms Suspect limb lead reversal, interpretation assumes no reversal Wide QRS tachycardia Right bundle branch block Lateral infarct , age undetermined Cannot rule out Inferior infarct , age undetermined Abnormal ECG When compared with ECG of 10-APR-2021 18:10, Premature ventricular complexes are no longer Present Referred By: Jose Barrios Electronically Signed By:DRAGAN BARTLETT
--- NOTE | 2021-07-20 17:57 | ED.GENADULT ---
HPI - General Adult General Chief complaint: Arrhythmia/Palpitations Stated complaint: palpitations Time Seen by Provider: 07/20/21 17:50 Source: patient Mode of arrival: ambulatory Limitations: no limitations History of Present Illness HPI narrative: 21-year-old male with history of tetralogy of Fallot and status post repair, patient with history of SVT and is taking verapamil 240 mg daily to control his heart rate, patient is very normal to get palpitation heart rate of 130s, patient fell today that his palpitation is above 130. On arrival patient has heart rate of 135 patient feels better and back to his normal baseline. Related Data Home Medications Medication Instructions Recorded Confirmed No Known Home Meds 06/14/21 06/14/21 Allergies Allergy/AdvReac Type Severity Reaction Status Date / Time citalopram [CITALOPRAM] Allergy Severe THROAT Verified 06/14/21 12:35 SWELLING, ANXIETY diphenhydramine Allergy Difficulty Verified 06/14/21 12:35 [From Benadryl] Breathing Review of Systems Review of Systems: All other systems are reviewed and are negative Constitutional: Reports as per HPI and Reports no additional constitutional complaints Eyes: Reports as per HPI and Reports no additional eye complaints Reports system reviewed and no additional complaints, except as documented Cardiovascular: Reports as per HPI and Reports no additional cardiovascular complaints Respiratory: Reports as per HPI and Reports no additional respiratory complaints Gastrointestinal: Reports as per HPI and Reports no additional gastrointestinal complaints Genitourinary: Reports no additional female genitourinary complaints Musculoskeletal: Reports no additional musculoskeletal complaints Skin/Breast: Reports system reviewed and no additional complaints, except as docu Psychiatric: Reports no additional psychiatric complaints Endocrine: Reports no additional endocrine complaints Hematologic/Lymphatic: Reports no additional hematologic/lymphatic complaints Allergic/Immunologic: Reports no additional allergic/immunologic complaints Reports system reviewed and no additional complaints, except as documented and Reports Abnormal speech present [facility] Past Medical History Medical History HTN (hypertension) RBBB SVT (supraventricular tachycardia) Tetralogy of Fallot Social History Social History Alcohol intake: current Alcohol intake frequency: holidays/special occasions only Patient Tobacco Use Status: Never used Tobacco Advance Directives: No Advance Directives Information Provided: Yes Physical Exam Vital Signs: Vital Signs: Last Vital Signs Temp 98.4 F 07/20/21 17:24 Pulse 81 07/20/21 18:25 Resp 16 07/20/21 18:25 BP 118/81 07/20/21 18:25 Pulse Ox 98 07/20/21 18:25 Body Mass Index 18.1 Vital signs have been reviewed as appeared to be correct. Blood pressure normal. Heart rate elevated. Respiration rate normal. Temperature normal. Oxygen saturation normal. Appearance: Alert. Oriented X3. No acute distress. Head: Normal external exam. Normocephalic. Atraumatic. No Alexandre signs noted. No raccoon eyes noted Eyes: PERRLA. EOMI. Conjunctiva and sclera normal. Eyelids normal. ENT: TM's Normal. Pharynx normal. Uvula midline. Moist mucous membranes. No trismus noted. No drooling noted. No muffled voice noted. Neck: Normal inspection. Neck supple. FROM. No adenopathy. Thyroid Normal. No meningeal signs. No neck mass noted. CVS: 130's tachycardia.. Heart sound normal. No murmurs noted. Pulses normal throughout. Respiratory: No respiratory distress. Painless inspiration. Breath sounds normal. No wheezes/rales/rhonchi noted. Chest nontender. No accessory muscle usage noted or decreased air movement noted. Abdomen: Soft and nontender. Bowel sounds normal in all 4 quadrants. No distention noted. No organomegaly noted. No visible injury noted. Back: No CVA tenderness. Full range of motion noted. Skin: Skin warm and dry. Normal skin color. Normal skin turgor. No rashes/lesions/lacerations noted. Extremities: No lower extremity edema. Extremities exhibit normal range of motion. Extremities nontender. Neuro: Oriented X 3. Cranial nerve exam: II-XII are grossly intact No motor deficit. No sensory deficit. Reflexes normal. Course Course Course Narrative: Assessment and plan. 21-year-old history of Fallot serology repair, patient also with history of SVT. Patient presented with SVT of 140s, patient received 6 mg of adenosine and then patient converted into normal sinus rhythm. Medical Decision Making Lab Data Lab results reviewed: Yes I reviewed the patient's lab results. Result diagrams: 07/20/21 18:03 07/20/21 18:03 Labs: Lab Results 07/20/21 07/20/21 07/20/21 Range/Units 18:03 18:03 18:03 WBC 10.2 (4.8-10.8) X10*3/uL RBC 5.40 (4.60-5.80) X10*6/uL Hgb 15.8 (14.0-18.0) g/dl Hct 47.3 (42-52) % MCV 87.6 (80-98) fL MCH 29.3 (27.0-33.0) pg MCHC 33.4 (31.0-36.0) g/dl RDW 12.1 (11.0-16.0) % Plt Count 275 (160-400) X10*3/uL MPV 11.3 (9.4-12.4) fL Immature Gran % (Auto) 0.3 (0.0-0.4) % Neut % (Auto) 70.5 (45-73) % Lymph % (Auto) 18.8 L (20-40) % [place] % (Auto) 7.4 (2-11) % Eos % (Auto) 2.5 (0-4) % Baso % (Auto) 0.5 (0-2) % Lymph # (Auto) 1.9 (1.2-4.9) X10*3/uL [place] # (Auto) 0.8 (0.1-1.2) X10*3/uL Eos # (Auto) 0.3 (0.0-0.4) X10*3/uL Baso # (Auto) 0.1 (0.0-0.2) X10*3/uL Abs Immat Gran (auto) 0.03 (0.00-0.03) X10*3/uL Absolute Neuts (auto) 7.2 (2.0-8.3) X10*3/uL Absolute Nucleated RBC 0.000 (0.0-0.012) X10*3/uL Nucleated RBC % (auto) 0.0 (0.0-0.2) /100WBC Sodium 142 (135-145) mmol/L Potassium 4.3 (3.3-5.1) mmol/L Chloride 106 (96-108) mmol/L Carbon Dioxide 26 (22-29) mmol/L Anion Gap 14 (12-20) BUN 13 (9-16) mg/dL Creatinine 0.98 (0.5-1.4) mg/dL Estim Creat Clear Calc 97.7 Estimated GFR > 60 Random Glucose 80 (60-115) mg/dL Calcium 10.2 (8.4-10.2) mg/dL Magnesium 2.1 (1.6-2.6) mg/dL Troponin I High Sens < 3.5 (<3.5-35.0) ng/L ECG Data Interpretation: EKG 1. Wide QRS tachycardia at 135 beats per minutes, right bundle branch block. EKG 2. Normal sinus rhythm at 68 beats per minutes, right bundle-branch block, no change from previous EKG. Critical Care Time Critical Care Time Critical Care Time: Yes Total Critical Care Time: 60 Attestation: I spent 60 minutes providing critical care service to the patient, this including time spent at the bedside to evaluate the patient, reassess the patient, monitoring vital signs, review labs, and radiographic studies, counseling the patient/family, discussing the case with consultants, disposition the patient. Discharge Plan Discharge Clinical Impression: Palpitations, Supraventricular tachycardia Patient Disposition: Home, Self-Care Instructions: Supraventricular Tachycardia (ED) Prescriptions: No Action No Known Home Meds RF: 0 Referrals: Physician,None [Primary Care Provider] - 2 days
[2021-07-20 18:12] LABS: MANUAL DIFF FLAG NO
[2021-07-20 18:18] LABS: Basophils Absolute Auto 0.1 X10*3/uL (0.0-0.2); Basophils Percent Auto 0.5 % (0-2); Eosinophils Absolute Auto 0.3 X10*3/uL (0.0-0.4); Eosinophils Percent Auto 2.5 % (0-4); Hematocrit 47.3 % (42-52); Hemoglobin 15.8 g/dl (14.0-18.0); Imm Gran Abs Auto 0.03 X10*3/uL (0.00-0.03); Imm Gran Pct Auto 0.3 % (0.0-0.4); Lymphocytes Absolute Auto 1.9 X10*3/uL (1.2-4.9); Lymphocytes Percent Auto 18.8 % (20-40); Mean Corpuscular HGB Conc 33.4 g/dl (31.0-36.0); Mean Corpuscular Hemoglobin 29.3 pg (27.0-33.0); Mean Corpuscular Volume 87.6 fL (80-98); Mean Platelet Volume 11.3 fL (9.4-12.4); Monocytes Absolute Auto 0.8 X10*3/uL (0.1-1.2); Monocytes Percent Auto 7.4 % (2-11); Neutrophils Absolute Auto 7.2 X10*3/uL (2.0-8.3); Neutrophils Percent Auto 70.5 % (45-73); Platelet Count 275 X10*3/uL (160-400); Red Cell Distribution Width 12.1 % (11.0-16.0); White Blood Count 10.2 X10*3/uL (4.8-10.8)
[2021-07-20 18:25] VITALS: BP 118/81; PULSE 81; RESP 16; O2SAT 98
[2021-07-20] MEDS: 0.9 % Sodium Chloride 1,000 ML 999 ML IVCONT (18:35)
[2021-07-20 18:45] LABS: Anion Gap 14 (12-20); Blood Urea Nitrogen 13 mg/dL (9-16); Calcium 10.2 mg/dL (8.4-10.2); Carbon Dioxide 26 mmol/L (22-29); Chloride 106 mmol/L (96-108); Creatinine Clr Calc Pharmacy 97.7; Estimated Glomerular Filt Rate > 60; Glucose Random 80 mg/dL (60-115); Magnesium 2.1 mg/dL (1.6-2.6); Potassium 4.3 mmol/L (3.3-5.1); Sodium 142 mmol/L (135-145); Troponin-I High Sensitivity < 3.5 ng/L (<3.5-35.0)
--- NOTE | 2021-07-20 19:00 | ECG_ITS ---
Test Reason : REPEAT Blood Pressure : / mmHG Vent. Rate : 078 BPM Atrial Rate : 078 BPM P-R Int : 148 ms QRS Dur : 152 ms QT Int : 418 ms P-R-T Axes : 115 266 053 degrees QTc Int : 476 ms Suspect limb lead reversal, interpretation assumes no reversal Normal sinus rhythm with sinus arrhythmia Right bundle branch block Abnormal ECG When compared with ECG of 20-JUL-2021 17:39, Sinus rhythm has replaced Wide QRS tachycardia Vent. rate has decreased BY 57 BPM Referred By: Jose Barrios Electronically Signed By:DRAGAN BARTLETT
[2021-07-20 20:00] VITALS: BP 113/62; PULSE 60; RESP 20; TEMP 36.8; O2SAT 99
== END 2021-07-20 20:41 | disposition home or self-care (01) ==
PROVIDERS: Emergency Provider Emergency Medicine
DX: R00.2 Palpitations (principal); I10 Essential (primary) hypertension; I47.1 Supraventricular tachycardia
CPT/HCPCS: 36415; 80048; 83735; 84484; 85025; 93005; 96361; 96374; 99285; 99291; J0153

== ENCOUNTER 2021-07-27 22:58 | Emergency (ER) | payer OTHER, SELFPAY ==
[2021-07-27 23:02] VITALS: BP 119/73; PULSE 78; RESP 16; TEMP 36.2; O2SAT 98; BMI 18.1
--- NOTE | 2021-07-28 00:18 | ED.MALEGU ---
HPI - Male Genitourinary General Chief complaint: Urogenital-Male Stated complaint: UTI? Time Seen by Provider: 07/28/21 00:08 Related Data Home Medications Medication Instructions Recorded Confirmed No Known Home Meds 06/14/21 06/14/21 Allergies Allergy/AdvReac Type Severity Reaction Status Date / Time citalopram [CITALOPRAM] Allergy Severe THROAT Verified 06/14/21 12:35 SWELLING, ANXIETY diphenhydramine Allergy Difficulty Verified 06/14/21 12:35 [From Benadryl] Breathing PMFSH Past Medical History Medical History HTN (hypertension) RBBB SVT (supraventricular tachycardia) Tetralogy of Fallot Social History Social History Alcohol intake: current Alcohol intake frequency: holidays/special occasions only Patient Tobacco Use Status: Never used Tobacco Advance Directives: No Advance Directives Information Provided: Yes Physical Exam Vital Signs: Vital Signs: Last Vital Signs Temp 97.2 F 07/27/21 23:02 Pulse 78 07/27/21 23:02 Resp 16 07/27/21 23:02 BP 119/73 07/27/21 23:02 Pulse Ox 98 07/27/21 23:02 Body Mass Index 18.1 MDM - Male Genitourinary Lab Data Labs: Lab Results 07/28/21 Range/Units 00:16 Urine Color YELLOW Urine Appearance CLEAR Urine pH 5.5 (5.0-8.0) Ur Specific [place] >= 1.030 H (1.005-1.025) Urine Protein NEG (NEG-TRACE) MG/DL Urine Glucose (UA) NEG (NEG) MG/DL Urine Ketones NEG (NEG) MG/DL Urine Blood NEG (NEG) Urine Nitrite NEG (NEG) Ur Leukocyte Esterase NEG (NEG) Discharge Plan Discharge Clinical Impression: Dysuria Patient Disposition: Home, Self-Care Instructions: Dysuria (ED) Additional Instructions: Please follow-up with your primary care physician tomorrow. If you have any worsening or new symptoms, please return to the emergency room or call 911 Prescriptions: No Action No Known Home Meds RF: 0 Interventions: ED Discharge Assessment Last Done: 07/28/21 01:09 Discharge Date/Time: 07/28/21 01:10
[2021-07-28 00:27] LABS: Glucose Urine UA NEG (NEG); Leukocyte Esterase Urine NEG (NEG); Nitrite Urine NEG (NEG); PH 5.5 (5.0-8.0); Specific Gravity - Urine >= 1.030 (1.005-1.025); Urine Blood NEG (NEG); Urine Ketones NEG (NEG); Urine Protein NEG (NEG-TRACE)
[2021-07-28 00:29] LABS: Appearance Urine CLEAR; Color Urine YELLOW
--- NOTE | 2021-07-28 00:49 | ED_ITS ---
HPI - Male Genitourinary General Chief complaint: Urogenital-Male Stated complaint: UTI? Time Seen by Provider: 07/28/21 00:08 Source: patient Mode of arrival: ambulatory Limitations: no limitations History of Present Illness HPI Narrative: Patient comes to emergency room complaining of dysuria. Patient denies hematuria. Patient states that he would like to be treated empirically for STDs. Patient denies fever chills, no flank pain no vomiting, no URI symptoms. Patient denies penile discharge, no testicular pain. Related Data Home Medications Medication Instructions Recorded Confirmed No Known Home Meds 06/14/21 06/14/21 Allergies Allergy/AdvReac Type Severity Reaction Status Date / Time citalopram [CITALOPRAM] Allergy Severe THROAT Verified 06/14/21 12:35 SWELLING, ANXIETY diphenhydramine Allergy Difficulty Verified 06/14/21 12:35 [From Benadryl] Breathing Review of Systems Review of Systems: Constitutional : No Weight loss, No Fever, No Chills, No Night Sweats, No Fatigue, No Malaise ENT/Mouth : No Hearing loss, No Ear Pain, No Nasal Congestion, No Sinus Pain, No Hoarseness, No sore throat, No Rhinorrhea, No Swallowing Difficulty Eyes: No Eye Pain, No Swelling, No Redness, No Foreign Body, No Discharge, No Vision Changes Cardiovascular : No Chest Pain, No SOB, No Dyspnea on Exertion, No Orthopnea, No Edema, No Palpitations Respiratory : No Cough, No Sputum, No Wheezing, No Smoke Exposure, No Dyspnea Gastrointestinal : No Nausea, No Vomiting, No Diarrhea, No Constipation, No abdominal Pain, No Hematochezia, No Melena Genitourinary : Complaining of Dysuria, No Urinary Frequency, No Hematuria, No Urinary Incontinence, No Urgency, No Flank Pain, No Urinary Flow Changes, No Hesitancy Musculoskeletal : No joint pain, No Myalgias, No Joint Swelling Skin : No Skin Lesions, No rash Neuro : No Weakness, No Numbness, No Paresthesias, No Loss of Consciousness, No Dizziness, No Headache Psych : No Anxiety/Panic, No Depression, No SI/HI/AH/VH, No Social Issues, Heme/Lymph: No Bruising, No Bleeding,No Lymphadenopathy Endocrine : No Polyuria, No Polydipsia, No Temperature Intolerance [facility] Past Medical History Medical History HTN (hypertension) RBBB SVT (supraventricular tachycardia) Tetralogy of Fallot Social History Social History Alcohol intake: current Alcohol intake frequency: holidays/special occasions only Patient Tobacco Use Status: Never used Tobacco Advance Directives: No Advance Directives Information Provided: Yes Physical Exam Vital Signs: Vital Signs: Last Vital Signs Temp 97.2 F 07/27/21 23:02 Pulse 78 07/27/21 23:02 Resp 16 07/27/21 23:02 BP 119/73 07/27/21 23:02 Pulse Ox 98 07/27/21 23:02 Body Mass Index 18.1 Const: Other: Appearance: Alert. Oriented X3. No acute distress. Eyes: Pupils equal, round and reactive to light. ENT: Pharynx normal. Neck: Normal inspection. Neck supple. No lymph nodes noted. No crepitus CVS: Normal heart rate and rhythm. Pulses normal. Normal S1 and S2 Respiratory: No respiratory distress. Breath sounds normal. No Wheezing. No rales Abdomen: Soft and nontender. No rigidity. No distention. :declined Skin: Skin warm and dry. Normal skin color. Normal skin turgor. Extremities: No lower extremity edema. No lower extremity edema. No Lacerations. No Rash Neuro: Oriented X 3. No motor deficit. No sensory deficit. Moving all extermities. No slurred speech. Course Course Course Narrative: Patient states that him and his girlfriend recently tested negative for STDs. He is not sure if he has an STD although both of them claim to be monogamous. Urinalysis negative, discussed with the patient that if he tests positive, he will receive a phone call at home. Patient was given 1 dose of ceftriaxone and azithromycin MDM - Male Genitourinary Lab Data Labs: Lab Results 07/28/21 Range/Units 00:16 Urine Color YELLOW Urine Appearance CLEAR Urine pH 5.5 (5.0-8.0) Ur Specific [place] >= 1.030 H (1.005-1.025) Urine Protein NEG (NEG-TRACE) MG/DL Urine Glucose (UA) NEG (NEG) MG/DL Urine Ketones NEG (NEG) MG/DL Urine Blood NEG (NEG) Urine Nitrite NEG (NEG) Ur Leukocyte Esterase NEG (NEG) Discharge Plan Discharge Clinical Impression: Dysuria Patient Disposition: Home, Self-Care Instructions: Dysuria (ED) Additional Instructions: Please follow-up with your primary care physician tomorrow. If you have any worsening or new symptoms, please return to the emergency room or call 911 Prescriptions: No Action No Known Home Meds RF: 0
[2021-07-28] MEDS: Azithromycin 500 MG TABLET 1000 MG PO (00:55)
[2021-07-28] MEDS: cefTRIAXone sodium 500 MG, Lidocaine HCl 1 % MPF 1 ML IM (00:55)
[2021-07-28 04:23] LABS: CT PCR NOT DETECTED (Not Detect.); NG PCR NOT DETECTED (Not Detect.)
== END 2021-07-28 01:10 | disposition home or self-care (01) ==
PROVIDERS: Emergency Provider Emergency Medicine; PCP Internal Medicine
DX: R30.0 Dysuria (principal); Z11.3 Encounter for screening for infections with a predominantly sexual mode of transmission; I10 Essential (primary) hypertension
CPT/HCPCS: 81003; 87491; 87591; 96372; 99283; 99284; J0696

== ENCOUNTER 2021-08-16 08:06 | Outpatient (REF) | payer OTHER, SELFPAY | END 2021-08-16 08:07 | disposition home or self-care (01) | LOC: HO.HOSX 08:06 | PROVIDERS: Visit Provider Physician Assistant | DX: Z13.89 Encounter for screening for other disorder (principal) ==

== ENCOUNTER 2021-08-24 14:14 | Outpatient (REF) | payer OTHER, SELFPAY | END 2021-08-24 14:15 | disposition home or self-care (01) | LOC: HO.LAB 14:14 | PROVIDERS: Visit Provider Internal Medicine | DX: Z20.822 Contact with and (suspected) exposure to COVID-19 (principal) | CPT/HCPCS: C9803; U0003; U0005 ==

== ENCOUNTER 2021-09-11 11:24 | Emergency (ER) | payer OTHER, SELFPAY ==
--- NOTE | 2021-09-11 11:37 | ED.GENADULT ---
HPI - General Adult General Chief complaint: Upper Respiratory Symptoms Stated complaint: covid Time Seen by Provider: 09/11/21 11:35 Source: patient Limitations: no limitations History of Present Illness HPI narrative: Patient with no acute symptoms presents with COVID exposure. She lives in a house where his brother was recently diagnosed with COVID-19. He has a history of chronic bronchitis but states there has been no change in the amount or quality of his chronic cough. He also has a history of open heart surgery as an infant. No GI symptoms. No fevers. Not previously vaccinated or infected Related Data Home Medications Medication Instructions Recorded Confirmed No Known Home Meds 06/14/21 06/14/21 Allergies Allergy/AdvReac Type Severity Reaction Status Date / Time citalopram [CITALOPRAM] Allergy Severe THROAT Verified 06/14/21 12:35 SWELLING, ANXIETY diphenhydramine Allergy Difficulty Verified 06/14/21 12:35 [From Benadryl] Breathing Review of Systems Constitutional: Constitutional: Denies body ache(s) and Denies fever(s) Cardiovascular: Cardiovascular: Denies dyspnea Respiratory: Respiratory: Denies dyspnea Comments: Chronic cough without change Gastrointestinal: Comments: No nausea vomiting diarrhea or constipation PMFSH Past Medical History Medical History HTN (hypertension) RBBB SVT (supraventricular tachycardia) Tetralogy of Fallot Social History Social History Alcohol intake: current Alcohol intake frequency: does not drink Patient Tobacco Use Status: Never used Tobacco Advance Directives: No Advance Directives Information Provided: No Physical Exam Vital Signs: Vital Signs: Last Vital Signs Temp 98.7 F 09/11/21 11:38 Pulse 82 09/11/21 11:38 Resp 15 09/11/21 11:38 BP 121/88 09/11/21 11:38 Pulse Ox 94 09/11/21 11:38 Body Mass Index 19.5 Const: Other: Awake alert no acute distress Resp: Other: No respiratory distress or cough noted Skin: Other: No obvious rash Neuro: Other: Ambulates without difficulty. No obvious neurologic deficit Course Course Course Narrative: COVID-19 exposure, close contact 1:50 p.m.. COVID-19 PCR is negative Medical Decision Making Lab Data Labs: Lab Results 09/11/21 Range/Units 11:47 Coronavirus (PCR) NEGATIVE (Negative) SARS-CoV-2 (PCR) Cancelled Influenza Type A (PCR) NEGATIVE (Negative) Influenza Type B (PCR) NEGATIVE (Negative) RSV RNA Qual (PCR) NEGATIVE (Negative) Discharge Plan Discharge Clinical Impression: Close exposure to 2019-nCoV Patient Disposition: Home, Self-Care Instructions: COVID-19 (Coronavirus Disease 2019) (ED) Additional Instructions: Be sure to quarantine for the next 14 days. It is okay to receive the COVID-19 vaccine Prescriptions: No Action No Known Home Meds RF: 0
[2021-09-11 11:38] VITALS: BP 121/88; PULSE 82; RESP 15; TEMP 37.1; O2SAT 94; BMI 19.5
[2021-09-11 13:23] LABS: Influenza A PCR NEGATIVE (Negative); Influenza B PCR NEGATIVE (Negative); Resp Syncy Virus RNA Qual PCR NEGATIVE (Negative); SARS COV2 PCR INHOUSE NEGATIVE (Negative)
== END 2021-09-11 14:14 | disposition home or self-care (01) ==
PROVIDERS: Emergency Provider Emergency Medicine
DX: R05.3 Chronic cough (principal); I10 Essential (primary) hypertension; Z20.822 Contact with and (suspected) exposure to COVID-19
CPT/HCPCS: 0241U; 36415; 99283; 99284

== ENCOUNTER 2021-09-18 11:03 | Outpatient (REF) | payer OTHER, SELFPAY | END 2021-09-18 11:04 | disposition home or self-care (01) | LOC: HO.LAB 11:03 | PROVIDERS: Visit Provider Internal Medicine | DX: Z20.822 Contact with and (suspected) exposure to COVID-19 (principal) | CPT/HCPCS: C9803; U0003; U0005 ==

== ENCOUNTER 2021-09-18 15:40 | Emergency (ER) | payer OTHER, SELFPAY ==
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
[2021-09-18 15:48] VITALS: O2SAT 97
[2021-09-18 16:12] VITALS: BP 107/72; PULSE 82; RESP 18; TEMP 37; O2SAT 95; BMI 18.1
--- NOTE | 2021-09-18 16:14 | ED.GENADULT ---
HPI - General Adult General Chief complaint: Upper Respiratory Symptoms Stated complaint: Coughing up blood Time Seen by Provider: 09/18/21 16:14 Related Data Home Medications Medication Instructions Recorded Confirmed No Known Home Meds 06/14/21 06/14/21 Allergies Allergy/AdvReac Type Severity Reaction Status Date / Time citalopram [CITALOPRAM] Allergy Severe THROAT Verified 06/14/21 12:35 SWELLING, ANXIETY diphenhydramine Allergy Difficulty Verified 06/14/21 12:35 [From Benadryl] Breathing PMFSH Past Medical History Medical History HTN (hypertension) RBBB SVT (supraventricular tachycardia) Tetralogy of Fallot Social History Social History Alcohol intake: current Alcohol intake frequency: does not drink Patient Tobacco Use Status: Never used Tobacco Advance Directives: No Advance Directives Information Provided: No Physical Exam Vital Signs: Vital Signs: Last Vital Signs Temp 98.6 F 09/18/21 16:12 Pulse 82 09/18/21 16:12 Resp 18 09/18/21 16:12 BP 107/72 09/18/21 16:12 Pulse Ox 95 09/18/21 16:12 Body Mass Index 18.1 Course Course Course Narrative: 1615-This is a rapid medical exam. 21 yo male here with palpitations, some slight chest discomfort with deep breathing right side, coughing with some blood streaks yesterday. Today clear sputum. No fevers, chills, Will check CXR, EKG, labs. Deferred additional HPI, ROS, and PE to primary provider. Discharge Plan Discharge Clinical Impression: Cough Patient Disposition: Elopement Prescriptions: No Action No Known Home Meds RF: 0 Stand Alone Forms: Work/School Release Interventions: ED Discharge Assessment Last Done: 09/18/21 19:00 Discharge Date/Time: 09/18/21 19:10
== END 2021-09-18 19:10 | disposition left against medical advice (07) ==
LOC: HO.ED 19:08
PROVIDERS: Emergency Provider Emergency Medicine
DX: R05.9 Cough, unspecified (principal); I10 Essential (primary) hypertension; Z20.822 Contact with and (suspected) exposure to COVID-19; Z79.899 Other long term (current) drug therapy
CPT/HCPCS: 71046; 99283

== ENCOUNTER 2021-09-26 18:57 | Emergency (ER) | payer OTHER, SELFPAY ==
--- NOTE | 2021-09-26 19:40 | ECG_ITS ---
Test Reason : tachy Blood Pressure : / mmHG Vent. Rate : 167 BPM Atrial Rate : 167 BPM P-R Int : 128 ms QRS Dur : 138 ms QT Int : 268 ms P-R-T Axes : 000 229 043 degrees QTc Int : 447 ms Sinus tachycardia vs Supraventricular tachycardia Right bundle branch block Abnormal ECG Heart rate has increased Referred By: Generic ED Physician Electronically Signed By:HOUSTON ANDREW MD
[2021-09-26 19:46] VITALS: BP 111/69; PULSE 169; RESP 16; TEMP 36.7; O2SAT 96; BMI 18.3
[2021-09-26 20:00] VITALS: BP 110/80; PULSE 167; PULSE 73; RESP 15; TEMP 36.7; O2SAT 96
[2021-09-26 20:14] LABS: MANUAL DIFF FLAG NO
[2021-09-26 20:16] LABS: Basophils Absolute Auto 0.1 X10*3/uL (0.0-0.2); Basophils Percent Auto 0.6 % (0-2); Eosinophils Absolute Auto 0.4 X10*3/uL (0.0-0.4); Eosinophils Percent Auto 3.5 % (0-4); Hematocrit 50.6 % (42-52); Hemoglobin 17.4 g/dl (14.0-18.0); Imm Gran Abs Auto 0.02 X10*3/uL (0.00-0.03); Imm Gran Pct Auto 0.2 % (0.0-0.4); Lymphocytes Absolute Auto 2.3 X10*3/uL (1.2-4.9); Lymphocytes Percent Auto 22.9 % (20-40); Mean Corpuscular HGB Conc 34.4 g/dl (31.0-36.0); Mean Corpuscular Hemoglobin 29.8 pg (27.0-33.0); Mean Corpuscular Volume 86.6 fL (80-98); Mean Platelet Volume 11.3 fL (9.4-12.4); Monocytes Absolute Auto 0.8 X10*3/uL (0.1-1.2); Monocytes Percent Auto 7.9 % (2-11); Neutrophils Absolute Auto 6.6 X10*3/uL (2.0-8.3); Neutrophils Percent Auto 64.9 % (45-73); Platelet Count 266 X10*3/uL (160-400); Red Blood Count 5.84 X10*6/uL (4.60-5.80); Red Cell Distribution Width 12.1 % (11.0-16.0); White Blood Count 10.2 X10*3/uL (4.8-10.8)
--- NOTE | 2021-09-26 20:17 | PC.NURSE ---
Patient in with SVT of 160's. Patient line and lab'd and prepared for adenosine administration. Patient given 6 mg of Adenosine with effect. Heart rate now in 70's and 80's. Patient tolerated the procedure well and had excellent results.
[2021-09-26 20:27] LABS: Anion Gap 13 (12-20); Blood Urea Nitrogen 8 mg/dL (9-16); Carbon Dioxide 27 mmol/L (22-29); Chloride 105 mmol/L (96-108); Creatinine Clr Calc Pharmacy 106.9; Estimated Glomerular Filt Rate > 60; Glucose Random 88 mg/dL (60-115); Potassium 4.1 mmol/L (3.3-5.1); Sodium 141 mmol/L (135-145)
[2021-09-26 20:35] LABS: Troponin-I High Sensitivity < 3.5 ng/L (<3.5-35.0)
--- NOTE | 2021-09-26 20:44 | ED.ARRPALP ---
HPI - Arrhythmia/Palpitations General Chief Complaint: Arrhythmia/Palpitations Stated Complaint: Increased heart palpitations Time Seen by Provider: 09/26/21 19:59 History of Present Illness HPI narrative: Patient is 21 years old with a history of tetralogy of Fallot. History of SVT. Patient noted his heart rate went up to 170. Uncontrolled. Did not resolve with Valsalva maneuver. Came to the ED. No chest pain. No diaphoresis. Patient claims he still have some of his verapamil left. Been compliant with his medication. No coughing or congestion or upper respiratory symptoms. No diaphoresis. Patient from home. Related Data Previous Rx's Medication Instructions Recorded verapamil 240 mg 24 hr 240 mg PO DAILY #30 cap 09/26/21 capsule,extended release Allergies Allergy/AdvReac Type Severity Reaction Status Date / Time citalopram [CITALOPRAM] Allergy Severe THROAT Verified 09/26/21 19:46 SWELLING, ANXIETY diphenhydramine Allergy Difficulty Verified 09/26/21 19:46 [From Benadryl] Breathing Review of Systems Review of Systems: Positive palpitation Positive shortness of breath All systems reviewed otherwise negative [facility] Past Medical History Attestation statement: The following information was validated with the patient. Medical History HTN (hypertension) RBBB SVT (supraventricular tachycardia) Tetralogy of Fallot Social History Social History Alcohol intake: never Patient Tobacco Use Status: Never used Tobacco Use of substances other than those prescribed or required for medical reasons: Yes Substance Use Type: Marijuana Advance Directives: No Advance Directives Information Provided: Yes Physical Exam Vital Signs: Vital Signs: Last Vital Signs Temp 98.1 F 09/26/21 19:46 Pulse 167 H 09/26/21 20:00 Resp 16 09/26/21 19:46 BP 111/69 09/26/21 19:46 Pulse Ox 96 09/26/21 19:46 Body Mass Index 18.3 Appearance: Alert. Oriented X3. No acute distress. Eyes: Pupils equal, round and reactive to light. ENT: Pharynx normal. Neck: Normal inspection. Neck supple. No lymph nodes noted. No crepitus CVS: Tachycardic but regular Respiratory: No respiratory distress. Breath sounds normal. No Wheezing. No rales Abdomen: Soft and nontender. No rigidity. No distention. good BS x4 Skin: Skin warm and dry. Normal skin color. Normal skin turgor. Extremities: No lower extremity edema. Neurovascular intact to all extremities. No Lacerations. No Rash Neuro: Oriented X 3. No motor deficit. No sensory deficit. Moving all extermities. No slurred speech MDM - Arrhythmia/Palpitations MDM Narrative Medical decision making narrative: Patient on arrival had a heart rate of 170. Looks like a right bundle branch pattern. Question SVT with aberrancy. Question patient has WPW. Old EKG reviewed. Patient has a history of right bundle-branch block. Think this is most likely secondary to a SVT with aberrancy. Patient given a dose of adenosine 6 mg. Good results. Drop back into a sinus rhythm. Patient baseline is on verapamil. He does have a history of tetralogy of Fallot. Electrolytes are normal patient's meds refilled. Will discharge patient home. Currently in stable condition. Medical Records Attestation: I reviewed the patient's medical records. Lab Data Attestation: I reviewed the patient's lab results. Result diagrams: 09/26/21 20:10 09/26/21 20:10 Labs: Lab Results 09/26/21 09/26/21 09/26/21 Range/Units 20:10 20:10 20:10 WBC 10.2 (4.8-10.8) X10*3/uL RBC 5.84 H (4.60-5.80) X10*6/uL Hgb 17.4 (14.0-18.0) g/dl Hct 50.6 (42-52) % MCV 86.6 (80-98) fL MCH 29.8 (27.0-33.0) pg MCHC 34.4 (31.0-36.0) g/dl RDW 12.1 (11.0-16.0) % Plt Count 266 (160-400) X10*3/uL MPV 11.3 (9.4-12.4) fL Immature Gran % (Auto) 0.2 (0.0-0.4) % Neut % (Auto) 64.9 (45-73) % Lymph % (Auto) 22.9 (20-40) % [place] % (Auto) 7.9 (2-11) % Eos % (Auto) 3.5 (0-4) % Baso % (Auto) 0.6 (0-2) % Lymph # (Auto) 2.3 (1.2-4.9) X10*3/uL [place] # (Auto) 0.8 (0.1-1.2) X10*3/uL Eos # (Auto) 0.4 (0.0-0.4) X10*3/uL Baso # (Auto) 0.1 (0.0-0.2) X10*3/uL Abs Immat Gran (auto) 0.02 (0.00-0.03) X10*3/uL Absolute Neuts (auto) 6.6 (2.0-8.3) X10*3/uL Absolute Nucleated RBC 0.000 (0.0-0.012) X10*3/uL Nucleated RBC % (auto) 0.0 (0.0-0.2) /100WBC Sodium 141 (135-145) mmol/L Potassium 4.1 (3.3-5.1) mmol/L Chloride 105 (96-108) mmol/L Carbon Dioxide 27 (22-29) mmol/L Anion Gap 13 (12-20) BUN 8 L (9-16) mg/dL Creatinine 0.91 (0.5-1.4) mg/dL Estim Creat Clear Calc 106.9 Estimated GFR > 60 Random Glucose 88 (60-115) mg/dL Calcium 10.0 (8.4-10.2) mg/dL Troponin I High Sens < 3.5 (<3.5-35.0) ng/L Critical Care Time Critical Care Time Total Critical Care Time: 30 Attestation: I have personally provided 30 minutes of critical care time exclusive of time spent on separately billable procedures. Time includes review of lab data, radiology results, discussion with consultants, and monitoring for potential decompensation. Interventions were performed as documented above Discharge Plan Discharge Clinical Impression: Supraventricular tachycardia Patient Disposition: Home, Self-Care Prescriptions: New verapamil 240 mg capsule,ext rel. pellets 24 hr 240 mg PO DAILY Qty: 30 RF: 0 Referrals: Physician,Unknown J [Primary Care Provider] - 2 days (Please take your heart rate medicine. 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
[2021-09-26 20:53] VITALS: BP 120/85; PULSE 68; RESP 12; TEMP 36.8; O2SAT 98
== END 2021-09-26 21:14 | disposition home or self-care (01) ==
PROVIDERS: Emergency Provider Emergency Medicine Emergency Medical Services
DX: I47.1 Supraventricular tachycardia (principal); R06.02 Shortness of breath; I10 Essential (primary) hypertension
CPT/HCPCS: 36415; 80048; 84484; 85025; 93005; 99285; J0153

== ENCOUNTER 2021-12-06 22:57 | Emergency (ER) | payer OTHER, SELFPAY | END 2021-12-07 00:46 | disposition left against medical advice (07) | PROVIDERS: Emergency Provider Emergency Medicine | DX: F41.9 Anxiety disorder, unspecified (principal) ==

== ENCOUNTER 2021-12-19 14:11 | Emergency (ER) | payer OTHER, SELFPAY ==
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
[2021-12-19 15:00] VITALS: BP 140/74; PULSE 126; RESP 18; TEMP 36.9; O2SAT 96; BMI 18.1
--- NOTE | 2021-12-19 15:05 | ECG_ITS ---
Test Reason : feeling sob Blood Pressure : / mmHG Vent. Rate : 138 BPM Atrial Rate : 000 BPM P-R Int : 000 ms QRS Dur : 158 ms QT Int : 344 ms P-R-T Axes : 000 229 037 degrees QTc Int : 521 ms SVT with abberrancy Right bundle branch block Lateral infarct , age undetermined Abnormal ECG When compared with ECG of 26-SEP-2021 20:15, Vent. rate has increased BY 52 BPM Referred By: Generic ED Physician Electronically Signed By:Paul Ny
[2021-12-19 15:29] LABS: Hematocrit 45.7 % (42.0-52.0); Hemoglobin 14.9 g/dl (14.0-18.0); Mean Corpuscular HGB Conc 32.6 g/dl (31.0-36.0); Mean Corpuscular Hemoglobin 28.3 pg (27.0-33.0); Mean Corpuscular Volume 86.9 fL (80.0-98.0); Mean Platelet Volume 10.5 fL (9.4-12.4); Platelet Count 272 X10*3/uL (160-400); Red Blood Count 5.26 X10*6/uL (4.60-5.80); Red Cell Distribution Width 11.9 % (11.0-16.0)
--- NOTE | 2021-12-19 15:32 | ECG_ITS ---
Test Reason : REPEAT Blood Pressure : / mmHG Vent. Rate : 085 BPM Atrial Rate : 085 BPM P-R Int : 160 ms QRS Dur : 148 ms QT Int : 404 ms P-R-T Axes : 031 247 045 degrees QTc Int : 480 ms Normal sinus rhythm Possible Left atrial enlargement Right bundle branch block Possible Lateral infarct , age undetermined Abnormal ECG When compared with ECG of 19-DEC-2021 15:11, Sinus rhythm has replaced Wide QRS tachycardia Vent. rate has decreased BY 53 BPM Referred By: Bruno Orozco Electronically Signed By:Paul Ny
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
[2021-12-19 15:41] LABS: Anion Gap 12 (12-20); Blood Urea Nitrogen 12 mg/dL (9-16); Calcium 9.6 mg/dL (8.4-10.2); Carbon Dioxide 27 mmol/L (22-29); Chloride 107 mmol/L (96-108); Creatinine Clr Calc Pharmacy 122.8; Estimated Glomerular Filt Rate > 60; Glucose Random 88 mg/dL (60-115); Sodium 142 mmol/L (135-145)
[2021-12-19 15:49] LABS: WBC ABN SCTR FOR CBC 1
[2021-12-19 15:50] LABS: White Blood Count 10.5 X10*3/uL (4.8-10.8)
[2021-12-19 15:58] LABS: Band Neutrophils Percent 5 % (3-5); Eosinophils Absolute Manual 0.1 X10*3/uL (0.0-0.4); Eosinophils Percent Manual 1 % (0-4); Lymphocytes Absolute Manual 1.4 X10*3/uL (1.2-4.9); Lymphocytes Percent Manual 13 % (20-40); Monocytes Absolute Manual 0.6 X10*3/uL (0.1-1.2); Monocytes Percent Manual 6 % (2-11); Neutrophils Absolute Manual 8.4 X10*3/uL (2.0-8.3); Neutrophils Percent Manual 75 % (45-73)
[2021-12-19 15:59] LABS: Platelet Estimate NORMAL (NORMAL); RBC Morphology NORMAL
[2021-12-19 16:00] LABS: Large Platelet PRESENT; Platelet Morphology Comment NOTED
[2021-12-19 16:04] LABS: COVID-19 Test Invalid (Negative); IDNOW Serial# 9DD0AD1C
[2021-12-19 16:13] VITALS: BP 108/69; PULSE 139; RESP 20; TEMP 36.6; O2SAT 98
[2021-12-19] MEDS: VerapamiL HCL 5 MG/2 ML VIAL IVPUSH (16:23)
[2021-12-19 16:25] VITALS: PULSE 92
[2021-12-19 16:32] LABS: D Dimer High Sensitivity < 150 NG/ML
--- NOTE | 2021-12-19 16:40 | ECG_ITS ---
Test Reason : REDO FOR DISCHARGE Blood Pressure : / mmHG Vent. Rate : 084 BPM Atrial Rate : 084 BPM P-R Int : 168 ms QRS Dur : 152 ms QT Int : 408 ms P-R-T Axes : 006 245 031 degrees QTc Int : 482 ms Normal sinus rhythm Right bundle branch block Possible Lateral infarct (cited on or before 19-DEC-2021) Abnormal ECG When compared with ECG of 19-DEC-2021 15:30, No significant change was found Referred By: Bruno Orozco Electronically Signed By:Paul Ny
== END 2021-12-19 16:55 | disposition home or self-care (01) ==
PROVIDERS: Emergency Provider Emergency Medicine
DX: I47.1 Supraventricular tachycardia (principal); R07.9 Chest pain, unspecified; Z20.822 Contact with and (suspected) exposure to COVID-19; I10 Essential (primary) hypertension; F12.90 Cannabis use, unspecified, uncomplicated
CPT/HCPCS: 36415; 71045; 80048; 84484; 85007; 85027; 85379; 87635; 93005; 96374; 99283; 99291

== ENCOUNTER 2022-01-11 21:36 | Emergency (ER) | payer OTHER, SELFPAY | END 2022-01-11 23:07 | disposition left against medical advice (07) | LOC: HO.ED 23:11 | PROVIDERS: Emergency Provider Emergency Medicine | DX: R00.2 Palpitations (principal); R50.9 Fever, unspecified; M79.10 Myalgia, unspecified site ==

== ENCOUNTER 2022-02-18 01:00 | Emergency (ER) | payer OTHER, SELFPAY ==
--- NOTE | ~2022-02-18 | XR_ITS ---
EXAMINATION: XR CHEST CLINICAL INFORMATION: Chest pain COMPARISON: 12/19/2021 TECHNIQUE: Frontal view of the chest was obtained. FINDINGS: Cardiac leads overlie the chest. The lungs are well expanded. Bronchial wall thickening noted. There is no focal consolidation, edema, or effusion. No pneumothorax. The cardiomediastinal silhouette is within normal limits. No acute osseous abnormality. XR/XR chest 1V IMPRESSION: No dense consolidation. Bronchial wall thickening can be seen with a small airways process such as asthma or atypical/viral infection.
[2022-02-18 01:15] VITALS: BP 116/80; BP 120/82; PULSE 127; PULSE 130; RESP 16; TEMP 36.6; O2SAT 100; O2SAT 98; BMI 25.9
--- NOTE | 2022-02-18 01:24 | ECG_ITS ---
Test Reason : chest pain Blood Pressure : / mmHG Vent. Rate : 124 BPM Atrial Rate : 000 BPM P-R Int : 000 ms QRS Dur : 164 ms QT Int : 382 ms P-R-T Axes : 000 219 036 degrees QTc Int : 548 ms Probably sinus tachycardia Right bundle branch block Abnormal ECG When compared with ECG of 19-DEC-2021 16:38, Increase in ventricular rate Referred By: Torres Joel Electronically Signed By:GREY HUMPHREY
--- NOTE | 2022-02-18 01:39 | ED.CHESTPAIN ---
HPI - Chest Pain General Chief Complaint: Chest Pain Stated Complaint: Chest pain Time Seen by Provider: 02/18/22 01:39 Source: patient Mode of arrival: ambulatory Limitations: no limitations History of Present Illness HPI narrative: History of tetralogy of Fallot with SVTs comes here for palpitations started at 0030 when he was trying to go to bed patient is a II 40 mg daily which he he has been taking with fair compliance on arrival patient heart rate was 127 this has happened frequently in the past patient went to the ER for same no dizziness no shortness of breath patient feeling better now Related Data Previous Rx's Medication Instructions Recorded verapamil 240 mg 24 hr 240 mg PO DAILY #30 cap 09/26/21 capsule,extended release Allergies Allergy/AdvReac Type Severity Reaction Status Date / Time citalopram [CITALOPRAM] Allergy Severe THROAT Verified 09/26/21 19:46 SWELLING, ANXIETY diphenhydramine Allergy Difficulty Verified 09/26/21 19:46 [From Benadryl] Breathing Review of Systems Review of Systems: Yes all other systems are reviewed and are negative [facility] Past Medical History Medical History HTN (hypertension) RBBB SVT (supraventricular tachycardia) Tetralogy of Fallot Social History Social History Alcohol intake: never Patient Tobacco Use Status: Never used Tobacco Substance Use Type: Marijuana Advance Directives: No Advance Directives Information Provided: No Physical Exam Vital Signs: Vital Signs: Last Vital Signs Temp 97.8 F 02/18/22 01:15 Pulse 76 02/18/22 02:24 Resp 18 02/18/22 02:24 BP 116/76 02/18/22 02:24 Pulse Ox 97 02/18/22 02:24 BMI result Body Mass Index 25.9 Appearance: Alert. Oriented X3. No acute distress. ENT: Pharynx normal. Oral Mucosa moist Neck: Normal inspection. Neck supple. CVS: Tachycardic with systolic ejection murmur at base, Pulses normal. Respiratory: No respiratory distress. Equal air entry bilateral, no wheezing/rales/rhonchi Abdomen: Soft and nontender. Bowel sounds are present, no mass palpable, no CVA tenderness Skin: Skin warm and dry. Normal skin color. Normal skin turgor. Extremities: No lower extremity edema. No calf tenderness Neuro: Oriented X 3. Course Course Course Narrative: satellite project site monitor showed heart rate in 60s normal sinus rhythm will not give metoprolol patient feeling much better now MDM - Chest Pain Lab Data Attestation: I reviewed the patient's lab results. Result diagrams: 02/18/22 01:36 02/18/22 01:36 Labs: Lab Results 02/18/22 02/18/22 02/18/22 Range/Units 01:36 01:36 01:36 WBC 11.5 H (4.8-10.8) X10*3/uL RBC 5.17 (4.60-5.80) X10*6/uL Hgb 14.8 (14.0-18.0) g/dl Hct 45.9 (42.0-52.0) % MCV 88.8 (80.0-98.0) fL MCH 28.6 (27.0-33.0) pg MCHC 32.2 (31.0-36.0) g/dl RDW 12.5 (11.0-16.0) % Plt Count 265 (160-400) X10*3/uL MPV 10.9 (9.4-12.4) fL Immature Gran % (Auto) Cancelled Neut % (Auto) Cancelled Lymph % (Auto) Cancelled [place] % (Auto) Cancelled Eos % (Auto) Cancelled Baso % (Auto) Cancelled Lymph # (Auto) Cancelled [place] # (Auto) Cancelled Eos # (Auto) Cancelled Baso # (Auto) Cancelled Abs Immat Gran (auto) Cancelled Absolute Neuts (auto) Cancelled Absolute Nucleated RBC 0.000 (0.0-0.012) X10*3/uL Nucleated RBC % (auto) 0.0 (0.0-0.2) /100WBC Neutrophils % (Manual) 55 (45-73) % Band Neutrophils % 4 (3-5) % Lymphocytes % (Manual) 22 (20-40) % Monocytes % (Manual) 13 H (2-11) % Eosinophils % (Manual) 5 H (0-4) % Basophils % (Manual) 1 (0-2) % Abs Neuts (Manual) 6.8 (2.0-8.3) X10*3/uL Lymphocytes # (Manual) 2.5 (1.2-4.9) X10*3/uL Monocytes # (Manual) 1.5 H (0.1-1.2) X10*3/uL Eosinophils # (Manual) 0.6 H (0.0-0.4) X10*3/uL Basophils # (Manual) 0.1 (0.0-0.2) X10*3/uL Platelet Estimate NORMAL (NORMAL) Large Platelets PRESENT Plt Morphology Comment NOTED RBC Morphology NORMAL Sodium 141 (135-145) mmol/L Potassium 3.8 (3.3-5.1) mmol/L Chloride 107 (96-108) mmol/L Carbon Dioxide 22 (22-29) mmol/L Anion Gap 16 (12-20) BUN 14 (9-16) mg/dL Creatinine 0.84 (0.5-1.4) mg/dL Estim Creat Clear Calc 105.6 Estimated GFR > 60 Random Glucose 76 (60-115) mg/dL Calcium 9.3 (8.4-10.2) mg/dL Magnesium 2.0 (1.6-2.6) mg/dL Troponin I High Sens < 3.5 (<3.5-35.0) ng/L ECG Data ECG #1: Attestation: I personally reviewed and interpreted this ECG as follows: Interpretation: Sinus tachycardia with RBBB heart rate 124 beats per minute no acute ischemic changes Discharge Plan Discharge Clinical Impression: Supraventricular tachycardia Patient Disposition: Home, Self-Care Instructions: Supraventricular Tachycardia (ED) Additional Instructions: Continue taking medication and follow with fitting room associate Prescriptions: No Action verapamil 240 mg capsule,ext rel. pellets 24 hr 240 mg PO DAILY Qty: 30 0RF Interventions: ED Discharge Assessment Last Done: 02/18/22 02:49 Discharge Date/Time: 02/18/22 02:50
[2022-02-18 01:41] LABS: Hematocrit 45.9 % (42.0-52.0); Hemoglobin 14.8 g/dl (14.0-18.0); Mean Corpuscular HGB Conc 32.2 g/dl (31.0-36.0); Mean Corpuscular Hemoglobin 28.6 pg (27.0-33.0); Mean Corpuscular Volume 88.8 fL (80.0-98.0); Mean Platelet Volume 10.9 fL (9.4-12.4); Platelet Count 265 X10*3/uL (160-400); Red Blood Count 5.17 X10*6/uL (4.60-5.80); Red Cell Distribution Width 12.5 % (11.0-16.0); WBC ABN SCTR FOR CBC 1
[2022-02-18 01:42] LABS: White Blood Count 11.5 X10*3/uL (4.8-10.8)
[2022-02-18 02:04] LABS: Anion Gap 16 (12-20); Blood Urea Nitrogen 14 mg/dL (9-16); Calcium 9.3 mg/dL (8.4-10.2); Carbon Dioxide 22 mmol/L (22-29); Chloride 107 mmol/L (96-108); Creatinine Clr Calc Pharmacy 105.6; Estimated Glomerular Filt Rate > 60; Glucose Random 76 mg/dL (60-115); Potassium 3.8 mmol/L (3.3-5.1); Sodium 141 mmol/L (135-145)
[2022-02-18 02:10] LABS: Troponin-I High Sensitivity < 3.5 ng/L (<3.5-35.0)
[2022-02-18 02:24] VITALS: BP 116/76; PULSE 76; RESP 18; O2SAT 97
[2022-02-18 02:36] LABS: Band Neutrophils Percent 4 % (3-5); Basophils Abs Manual 0.1 X10*3/uL (0.0-0.2); Basophils Percent Manual 1 % (0-2); Eosinophils Absolute Manual 0.6 X10*3/uL (0.0-0.4); Eosinophils Percent Manual 5 % (0-4); Large Platelet PRESENT; Lymphocytes Absolute Manual 2.5 X10*3/uL (1.2-4.9); Lymphocytes Percent Manual 22 % (20-40); Monocytes Absolute Manual 1.5 X10*3/uL (0.1-1.2); Monocytes Percent Manual 13 % (2-11); Neutrophils Absolute Manual 6.8 X10*3/uL (2.0-8.3); Neutrophils Percent Manual 55 % (45-73); Platelet Estimate NORMAL (NORMAL); Platelet Morphology Comment NOTED; RBC Morphology NORMAL
== END 2022-02-18 02:50 | disposition home or self-care (01) ==
PROVIDERS: Emergency Provider Internal Medicine
DX: R07.89 Other chest pain (principal); I47.1 Supraventricular tachycardia; R00.2 Palpitations; F12.90 Cannabis use, unspecified, uncomplicated; Z91.19 Patient's noncompliance with other medical treatment and regimen; Z79.899 Other long term (current) drug therapy
CPT/HCPCS: 36415; 71045; 80048; 83735; 84484; 85007; 85027; 93005; 99284

== ENCOUNTER 2022-05-31 01:19 | Emergency (ER) | payer OTHER, SELFPAY ==
[2022-05-31 01:23] VITALS: BP 118/76; PULSE 58; O2SAT 99
[2022-05-31 01:27] VITALS: PULSE 60; RESP 19; BMI 18.8
[2022-05-31 01:45] VITALS: PULSE 110
--- NOTE | 2022-05-31 01:45 | ED.CHESTPAIN ---
HPI - Chest Pain General Chief Complaint: Chest Pain Stated Complaint: CP Time Seen by Provider: 05/31/22 01:23 Source: patient Mode of arrival: EMS Limitations: no limitations History of Present Illness HPI narrative: 22-year-old male who presents emergency department for evaluation of palpitations, lightheadedness, dizziness, weakness and chest pain. The patient has a history of tetralogy of Fallot and supraventricular tachycardia. The patient states that yesterday he woke up around 10:00 and had palpitations which she describes as a rapid heart rate, chest pain which she describes as a stabbing pain in the left side of his chest radiating to his left arm lightheaded, dizziness and weakness. He states that the symptoms lasted approximately 2-3 hours. The patient had 2 more episodes with the same symptoms at 13:00 hours and at 19:00 hours. the states that his heart rate was 170 beats per minute during these episodes. He states that it is very unusual for him to experience 3 episodes of tachycardia and 1 day. Also he states that the chest discomfort was unusual for him. Patient does tape verapamil SR 240 mg once a day and bisoprolol 5 mg once in the morning. He states however he ran out of the bisoprolol 4 days prior and states that the medication is now available at his pharmacy. MD complaint: chest pain Pertinent past history: other (SVT, tetralogy of Fallot) Onset (ago): day(s) (1) Timing of current episode: episodic (Three episodes lasting 2-3 hours) Prior episodes: Yes Onset: during rest Pain location: left chest Pain radiation: left shoulder Severity: moderate Pain scale (0-10): 6 Quality: other (Stabbing) Relieving factors: nothing Exacerbating factors: nothing Associated symptoms: nausea Treatment prior to arrival: none Related Data Home Medications Medication Instructions Recorded Confirmed bisoprolol fumarate 5 mg tablet 0.5 tab PO DAILY 05/31/22 05/31/22 hydroxyzine HCl 10 mg tablet 20 mg PO QID PRN Anxiety 05/31/22 05/31/22 sertraline 25 mg tablet 25 mg PO DAILY 05/31/22 05/31/22 Previous Rx's Medication Instructions Recorded verapamil 240 mg 24 hr 240 mg PO DAILY #30 caps 09/26/21 capsule,extended release Allergies Allergy/AdvReac Type Severity Reaction Status Date / Time citalopram [CITALOPRAM] Allergy Severe THROAT Verified 09/26/21 19:46 SWELLING, ANXIETY diphenhydramine Allergy Difficulty Verified 09/26/21 19:46 [From Benadryl] Breathing Review of Systems Review of Systems: Yes all other systems are reviewed and are negative [facility] Past Medical History [facility] Narrative: Social history: He denies tobacco use. He occasionally drinks alcohol. He denies drug use. Medical History HTN (hypertension) RBBB SVT (supraventricular tachycardia) Tetralogy of Fallot Social History Social History Alcohol intake: never Patient Tobacco Use Status: Never used Tobacco Substance Use Type: Marijuana Physical Exam Vital Signs: Vital Signs: Last Vital Signs Pulse 110 H 05/31/22 01:27 Resp 19 05/31/22 01:27 BMI result Body Mass Index 18.8 Const: General: cooperative and no acute distress Orientation/consciousness: oriented to person and oriented to place Limitations: no limitations HEENT: Head: Yes normal to inspection, Yes normocephalic and Yes atraumatic Ears: external ears normal General nose exam: Normal external nose present Face and sinus: Yes normal facial exam Mouth: Normal oral and palatal mucosa present Throat: Yes posterior oropharynx normal Eyes: General: appearance normal, both eyes and all related structures Pupils: Equal, round and reactive pupils present Neck: Neck: Yes normal visual inspection, Yes no lymphadenopathy, Yes trachea midline and Yes supple Chest: Chest palpation & inspection: normal inspection of the chest and normal palpation of entire chest wall Resp: Effort & Inspection: normal respiratory effort and able to speak in complete sentences Auscultation: clear to auscultation bilaterally Cardio: Rate: regular rate Rhythm: regular rhythm Heart sounds: S1 normal heart sound present, S2 normal heart sound present and no murmurs GI: Inspection: Yes normal to inspection Palpation (GI): Soft to palpation, nontender and no guarding Auscultation: normal bowel sounds : General: Yes no CVA tenderness Back/Spine/Pelvis: Back: no CVA tenderness Skin: General skin exam: no rashes or lesions noted Neuro: General: oriented to person and oriented to place Cranial nerves: Yes CN's II-XII intact bilaterally and Yes Equal, round and reactive pupils present Cognition (Neuro): normal cognition Motor exam (neuro): 5/5 motor strength present throughout Extrem: General: Yes normal to inspection Psych: Appearance: grossly normal Speech and movement: Normal speech and movement present Affect: normal affect Attitude: cooperative Thought process: Normal thought process present Thought content: Normal thought content present Course Course Course Narrative: 22-year-old male who presents emergency department for evaluation 3 episodes of palpitations which occurred yesterday at 10:00 hours, 13:00 hours and 19:00 hours, each episode lasting 2-3 hours with associated left sided chest pain with pain radiating to his left shoulder, dizziness and fatigue. The patient does have a history of tetralogy of Fallot and SVT. For his SVT takes both verapamil 240 mg SR and bisoprolol 5 mg daily. The patient ran out of his bisoprolol 4 days prior but states that the medication is now available at his pharmacy. Patient's vital signs reveal the elevated heart rate of 110 otherwise were unremarkable. His exam was otherwise unremarkable. I suspect that his episodes may be related to the fact that he was not taking his beta-dinorah for 4 days. I did order a CBC, CMP, troponin, EKG. The patient will be placed on a cardiac and O2 saturation monitor. The patient was ordered to get her rapid male lasts are 240 mg orally and bisoprolol 5 mg orally. Twelve EKG done at 01:16 hours revealed a sinus rhythm with a rate of 61, normal CT interval, prolonged QRS duration of 160 milliseconds, prolonged QTC of 479 milliseconds, right bundle-branch block, no ST segment elevation, no ST segment depression, compared to EKG dated 02/18/2022 today's rate is slower, the right bundle-branch block is old . 0 200: At the end of my shift, the patient's workup is pending, the patient's care was turned over to my colleague, Dr. Daley Discharge Plan Discharge Clinical Impression: Heart palpitations, Tachycardia Patient Disposition: Still a Patient Instructions: Heart Palpitations (ED) Additional Instructions: You received a dose of verapamil SR 240 mg and bisoprolol 5 mg orally here in the emergency department. Take your next dose of these 2 medications tomorrow morning, 06/01/2022. Follow-up with your doctor in 2 days. Please return to the emergency department if your symptoms get worse or if you develop any symptoms that are concerning to you. Prescriptions: No Action verapamil 240 mg capsule,ext rel. pellets 24 hr 240 mg PO DAILY Qty: 30 0RF
[2022-05-31 02:00] VITALS: BP 116/60; PULSE 54; RESP 17; O2SAT 100
[2022-05-31 02:01] LABS: MANUAL DIFF FLAG NO
[2022-05-31 02:03] LABS: Basophils Percent Auto 0.6 % (0-2); Eosinophils Absolute Auto 0.4 X10*3/uL (0.0-0.4); Eosinophils Percent Auto 5.9 % (0-4); Hematocrit 43.1 % (42.0-52.0); Hemoglobin 14.4 g/dl (14.0-18.0); Imm Gran Abs Auto 0.01 X10*3/uL (0.00-0.03); Imm Gran Pct Auto 0.2 % (0.0-0.4); Lymphocytes Absolute Auto 2.1 X10*3/uL (1.2-4.9); Lymphocytes Percent Auto 32.9 % (20-40); Mean Corpuscular HGB Conc 33.4 g/dl (31.0-36.0); Mean Corpuscular Hemoglobin 28.8 pg (27.0-33.0); Mean Corpuscular Volume 86.2 fL (80.0-98.0); Mean Platelet Volume 10.9 fL (9.4-12.4); Monocytes Absolute Auto 0.6 X10*3/uL (0.1-1.2); Monocytes Percent Auto 9.9 % (2-11); Neutrophils Absolute Auto 3.2 x10*3/uL (2.0-8.3); Neutrophils Percent Auto 50.5 % (45-73); Platelet Count 248 X10*3/uL (160-400); Red Cell Distribution Width 12.1 % (11.0-16.0); White Blood Count 6.3 X10*3/uL (4.8-10.8)
[2022-05-31 02:24] LABS: Alanine Aminotransferase 15 U/L (0-40); Albumin Level 4.3 g/dL (3.5-5.0); Alkaline Phosphatase 85 U/L (39-117); Anion Gap 11 (12-20); Aspartate Amino Transferase 21 U/L (5-37); Bilirubin Total 0.5 mg/dL (0.0-1.0); Blood Urea Nitrogen 15 mg/dL (9-16); Carbon Dioxide 26 mmol/L (22-29); Chloride 106 mmol/L (96-108); Creatinine Clr Calc Pharmacy 112.1; Estimated Glomerular Filt Rate > 60; Glucose Random 82 mg/dL (60-115); Potassium 4.4 mmol/L (3.3-5.1); Sodium 139 mmol/L (135-145); Total Protein 7.1 g/dL (6.5-8.0)
[2022-05-31 02:27] LABS: Troponin-I High Sensitivity < 3.5 ng/L (<3.5-35.0)
[2022-05-31] MEDS: Bisoprolol Fumarate 5 MG TABLET PO (02:55)
[2022-05-31] MEDS: VerapamiL HCL SR 240 MG TABLET.ER PO (02:55)
[2022-05-31 04:17] VITALS: BP 103/59; PULSE 45; RESP 18; O2SAT 96
--- NOTE | 2022-05-31 04:41 | PC.NURSE ---
pt ambulated to BR with steady gait to void. pt has no complaints at this time.
--- NOTE | 2022-05-31 13:48 | ECG_ITS ---
Test Reason : CHEST PAIN Blood Pressure : / mmHG Vent. Rate : 061 BPM Atrial Rate : 061 BPM P-R Int : 080 ms QRS Dur : 168 ms QT Int : 476 ms P-R-T Axes : 046 251 042 degrees QTc Int : 479 ms Sinus rhythm Junctional Rhythm Right bundle branch block Abnormal ECG When compared with ECG of 18-FEB-2022 01:27, decrease in ventricular rate Referred By: Keagan Alberts Electronically Signed By:GREY HUMPHREY
== END 2022-05-31 05:00 | disposition home or self-care (01) ==
PROVIDERS: Emergency Provider Emergency Medicine Emergency Medical Services
DX: R00.2 Palpitations (principal); R00.0 Tachycardia, unspecified; I45.10 Unspecified right bundle-branch block; I10 Essential (primary) hypertension; Q21.3 Tetralogy of Fallot; F12.90 Cannabis use, unspecified, uncomplicated
CPT/HCPCS: 36415; 80053; 84484; 85025; 93005; 99283; 99284

== ENCOUNTER 2022-06-15 20:32 | Emergency (ER) | payer OTHER, SELFPAY ==
--- NOTE | ~2022-06-15 | XR_ITS ---
EXAMINATION: XR CHEST CLINICAL INFORMATION: Chest pain COMPARISON: 02/18/2022 TECHNIQUE: Frontal view of the chest was obtained. FINDINGS: The lungs are clear with no focal consolidation. No evidence of pneumothorax, pulmonary edema, or pleural effusions. The cardiomediastinal silhouette appears stable, with redemonstrated right-sided aortic arch. Redemonstrated metallic density overlying the right aspect of the upper thoracic spine. Sternal wires are again noted. No acute osseous findings are seen. XR/XR chest 1V IMPRESSION: No acute cardiopulmonary findings.
[2022-06-15 20:39] VITALS: BP 127/78; PULSE 94; RESP 18; TEMP 36; O2SAT 96; BMI 18.3
--- NOTE | 2022-06-15 20:41 | ECG_ITS ---
Test Reason : cp Blood Pressure : / mmHG Vent. Rate : 082 BPM Atrial Rate : 082 BPM P-R Int : 144 ms QRS Dur : 146 ms QT Int : 396 ms P-R-T Axes : 117 250 058 degrees QTc Int : 462 ms Sinus rhythm with Premature atrial complexes Right bundle branch block Abnormal ECG When compared with ECG of 31-MAY-2022 01:16, Premature atrial complexes are now Present QRS duration has decreased Referred By: Generic ED Physician Electronically Signed By:JOYCE HUERTA MD
[2022-06-15 20:54] LABS: MANUAL DIFF FLAG NO
[2022-06-15 20:55] LABS: Basophils Absolute Auto 0.1 X10*3/uL (0.0-0.2); Basophils Percent Auto 0.5 % (0-2); Eosinophils Absolute Auto 0.2 X10*3/uL (0.0-0.4); Eosinophils Percent Auto 2.5 % (0-4); Hematocrit 43.4 % (42.0-52.0); Hemoglobin 14.5 g/dl (14.0-18.0); Imm Gran Abs Auto 0.02 X10*3/uL (0.00-0.03); Imm Gran Pct Auto 0.2 % (0.0-0.4); Lymphocytes Absolute Auto 1.8 X10*3/uL (1.2-4.9); Lymphocytes Percent Auto 18.8 % (20-40); Mean Corpuscular HGB Conc 33.4 g/dl (31.0-36.0); Mean Corpuscular Hemoglobin 28.8 pg (27.0-33.0); Mean Corpuscular Volume 86.3 fL (80.0-98.0); Monocytes Absolute Auto 0.9 X10*3/uL (0.1-1.2); Monocytes Percent Auto 9.6 % (2-11); Neutrophils Absolute Auto 6.6 x10*3/uL (2.0-8.3); Neutrophils Percent Auto 68.4 % (45-73); Platelet Count 213 X10*3/uL (160-400); Red Blood Count 5.03 X10*6/uL (4.60-5.80); Red Cell Distribution Width 12.2 % (11.0-16.0); White Blood Count 9.7 X10*3/uL (4.8-10.8)
[2022-06-15 21:14] LABS: Alanine Aminotransferase 21 U/L (0-40); Albumin Level 4.6 g/dL (3.5-5.0); Alkaline Phosphatase 92 U/L (39-117); Anion Gap 11 (12-20); Aspartate Amino Transferase 36 U/L (5-37); Bilirubin Total 0.7 mg/dL (0.0-1.0); Blood Urea Nitrogen 14 mg/dL (9-16); Calcium 9.5 mg/dL (8.4-10.2); Carbon Dioxide 27 mmol/L (22-29); Chloride 108 mmol/L (96-108); Creatinine Clr Calc Pharmacy 99.4; Estimated Glomerular Filt Rate > 60; Glucose Random 83 mg/dL (60-115); Potassium 4.3 mmol/L (3.3-5.1); Sodium 142 mmol/L (135-145); Total Protein 7.5 g/dL (6.5-8.0)
[2022-06-15 21:20] LABS: Troponin-I High Sensitivity < 3.5 ng/L (<3.5-35.0)
--- NOTE | 2022-06-15 23:47 | ED_ITS ---
HPI - Chest Pain General Chief Complaint: Chest Pain Stated Complaint: chest pains, palpitations. hr: 173, slept all day Time Seen by Provider: 06/15/22 20:48 Source: patient Mode of arrival: ambulatory Limitations: no limitations History of Present Illness HPI narrative: 22 year old male history of supraventricular tachycardia, tetralogy of Fallot, HTN, RBBB presents w/ complaints of chest pain and palpitation x2 weeks. Patient tells me that his pain is intermittent in nature, substernal stabbing and severe in nature and radiates down to his left arm intermittently. Patient tells me that symptoms last anywhere between a few minutes to a few hours. Tells me that he gets periodically palpitations and at times his fingers turn blue. However this is not occurring today. He states that sometimes he becomes lightheaded and dizzy and gets a headache however no dizziness or lightheadedness today however he complains of a slight headache to the frontal aspect of his head, without vision changes, tells me it feels like his typical headache. He tells me he has been getting intermittent blurred vision isaiah aterally for a few months now. Patient is unable to identify what makes the pain better or worse. Patient does tape verapamil SR 240 mg once a day and? bisoprolol 5 mg once in the morning.? Patient is followed by [facility]. MD complaint: chest pain and other (Palpitations ) Pertinent past history: other (Tetrology of falloy, SVT) Related Data Home Medications Medication Instructions Recorded Confirmed bisoprolol fumarate 5 mg tablet 0.5 tab PO DAILY 05/31/22 05/31/22 hydroxyzine HCl 10 mg tablet 20 mg PO QID PRN Anxiety 05/31/22 05/31/22 sertraline 25 mg tablet 25 mg PO DAILY 05/31/22 05/31/22 Previous Rx's Medication Instructions Recorded verapamil 240 mg 24 hr 240 mg PO DAILY #30 caps 09/26/21 capsule,extended release Allergies Allergy/AdvReac Type Severity Reaction Status Date / Time citalopram [CITALOPRAM] Allergy Severe THROAT Verified 09/26/21 19:46 SWELLING, ANXIETY diphenhydramine Allergy Difficulty Verified 09/26/21 19:46 [From Benadryl] Breathing Review of Systems Review of Systems: Constitutional : No Weight loss, No Fever, No Chills, No Fatigue, No Malaise ENT/Mouth : No sore throat, No Rhinorrhea Eyes: No Eye Pain, No Swelling, No Redness Cardiovascular : + Chest Pain, No SOB, No Dyspnea on Exertion, No Orthopnea, No Edema, + Palpitations Respiratory : No Cough, No Sputum, No Wheezing Gastrointestinal : No Nausea, No Vomiting, No Diarrhea, No Constipation, No abdominal Pain, No Hematochezia, No Melena Genitourinary : No Dysuria, No Urinary Frequency, No Hematuria, Musculoskeletal : No joint pain, No Myalgias, No Joint Swelling Skin : No Skin Lesions, No rash Neuro : No Weakness, No Numbness, + Dizziness, + Headache All other systems reviewed and are negative Yes all other systems are reviewed and are negative [facility] Past Medical History Attestation statement: The following information was validated with the patient. Source: old records reviewed and nursing notes reviewed Medical History HTN (hypertension) RBBB SVT (supraventricular tachycardia) Tetralogy of Fallot Social History Social History Alcohol intake: never Patient Tobacco Use Status: Never used Tobacco Substance Use Type: Marijuana Advance Directives: No Advance Directives Information Provided: Yes Physical Exam Vital Signs: Vital Signs: Last Vital Signs Temp 96.8 F 06/15/22 20:39 Pulse 94 06/15/22 20:39 Resp 18 06/15/22 20:39 BP 127/78 06/15/22 20:39 Pulse Ox 96 06/15/22 20:39 O2 Del Method 06/15/22 20:39 BMI result Body Mass Index 18.3 VSS Appearance: Alert.? Oriented X3.? No acute distress.? Head: Normocephalic, atraumatic, no step-offs or deformities Eyes: Pupils equal, round and reactive to light.? ENT: Pharynx normal.? Neck: Normal inspection.? Neck supple.? CVS: Normal heart rate and rhythm.? Pulses normal.? Respiratory: No respiratory distress.? Breath sounds normal.? Abdomen: Soft and nontender.? Skin: Skin warm and dry.? Normal skin color.? Normal skin turgor.? Extremities: No lower extremity edema.? No calf ttp, negative Jacquie bilaterally. 5/5 strength to bilateral upper and lower extremities Neuro: Oriented X 3.? No motor deficit.? No sensory deficit. CN 2-12 intact Course Course Course Narrative: I discussed this case with my attending who agrees with plan. Reevaluation(s) Reevaluation #1: Patient's CBC within normal limits. Chemistry with no acute electrolyte abnormalities. Troponin negative. Time: 21:00 Reevaluation #2: Repeat troponin is negative, repeat EKG appears to be at patient's baseline. Chest x-ray with no acute findings. I spoke to patient and he tells me that he has to admit that he has for gotten his beta-dinorah for a few days, he started taking it today, again likely why patient was experiencing symptoms. At this time he reports to me that his chest pain has completely resolved. Patient is not experiencing shortness of breath. His headache is also gone. Patient tells me he would like to go home, he tells me has an appointment with his PCP on the of this month. At this time patient will be discharged home he will be staying home with someone today and not alone, he feels much better Time: 02:00 MDM - Chest Pain MDM Narrative Medical decision making narrative: [id number] This is a 22-year-old male presenting with palpitations, chest pain, lightheadedness, frontal headache without red flag symptoms x2 weeks. Patient has a history of tetralogy of Fallot, supraventricular tachycardia and right bundle-branch block he is followed by basic Cardiology, regularly takes verapamil and bisoprolol. Physical examination benign. Negative Jacquie bilaterally. Regular rate and rhythm, unable to appreciate murmurs. Lungs clear. Abdomen soft nontender nondistended. Neuro exam is nonfocal. Initial EKG upon triage shows ventricular rate of 82, normal IL interval, QRS, QT/QTC. EKG with sinus rhythm, right bundle-branch block. No ST elevations or inversions concerning for ischemia. Old right bundle-branch block. I do not suspect PE or ACS on this patient. I do not suspect ACS on this patient. History and physical examination not consistent with PE, negative Jacquie bilaterally. Unlikely CHF lungs are clear, no history of heart failure. Upon chart review patient has been here multiple times with the same presentation, he has received multiple negative workups. Plan at this time is cardiac monitoring, EKG, troponin, basic labs, medical clearance. Medical Records Data Attestation: I reviewed the patient's medical records. Lab Data Attestation: I reviewed the patient's lab results. Result diagrams: 06/15/22 20:49 06/15/22 20:49 Labs: Lab Results 06/15/22 06/15/22 06/15/22 Range/Units 20:49 20:49 20:49 WBC 9.7 (4.8-10.8) X10*3/uL RBC 5.03 (4.60-5.80) X10*6/uL Hgb 14.5 (14.0-18.0) g/dl Hct 43.4 (42.0-52.0) % MCV 86.3 (80.0-98.0) fL MCH 28.8 (27.0-33.0) pg MCHC 33.4 (31.0-36.0) g/dl RDW 12.2 (11.0-16.0) % Plt Count 213 (160-400) X10*3/uL MPV 11.0 (9.4-12.4) fL Immature Gran % (Auto) 0.2 (0.0-0.4) % Neut % (Auto) 68.4 (45-73) % Lymph % (Auto) 18.8 L (20-40) % [place] % (Auto) 9.6 (2-11) % Eos % (Auto) 2.5 (0-4) % Baso % (Auto) 0.5 (0-2) % Lymph # (Auto) 1.8 (1.2-4.9) X10*3/uL [place] # (Auto) 0.9 (0.1-1.2) X10*3/uL Eos # (Auto) 0.2 (0.0-0.4) X10*3/uL Baso # (Auto) 0.1 (0.0-0.2) X10*3/uL Abs Immat Gran (auto) 0.02 (0.00-0.03) X10*3/uL Absolute Neuts (auto) 6.6 (2.0-8.3) x10*3/uL Absolute Nucleated RBC 0.000 (0.0-0.012) X10*3/uL Nucleated RBC % (auto) 0.0 (0.0-0.2) /100WBC Sodium 142 (135-145) mmol/L Potassium 4.3 (3.3-5.1) mmol/L Chloride 108 (96-108) mmol/L Carbon Dioxide 27 (22-29) mmol/L Anion Gap 11 L (12-20) BUN 14 (9-16) mg/dL Creatinine 0.97 (0.5-1.4) mg/dL Estim Creat Clear Calc 99.4 Estimated GFR > 60 Random Glucose 83 (60-115) mg/dL Calcium 9.5 (8.4-10.2) mg/dL Total Bilirubin 0.7 (0.0-1.0) mg/dL AST 36 D (5-37) U/L ALT 21 (0-40) U/L Alkaline Phosphatase 92 (39-117) U/L Troponin I High Sens < 3.5 (<3.5-35.0) ng/L Total Protein 7.5 (6.5-8.0) g/dL Albumin 4.6 (3.5-5.0) g/dL 06/16/22 Range/Units 00:59 WBC (4.8-10.8) X10*3/uL RBC (4.60-5.80) X10*6/uL Hgb (14.0-18.0) g/dl Hct (42.0-52.0) % MCV (80.0-98.0) fL MCH (27.0-33.0) pg MCHC (31.0-36.0) g/dl RDW (11.0-16.0) % Plt Count (160-400) X10*3/uL MPV (9.4-12.4) fL Immature Gran % (Auto) (0.0-0.4) % Neut % (Auto) (45-73) % Lymph % (Auto) (20-40) % [place] % (Auto) (2-11) % Eos % (Auto) (0-4) % Baso % (Auto) (0-2) % Lymph # (Auto) (1.2-4.9) X10*3/uL [place] # (Auto) (0.1-1.2) X10*3/uL Eos # (Auto) (0.0-0.4) X10*3/uL Baso # (Auto) (0.0-0.2) X10*3/uL Abs Immat Gran (auto) (0.00-0.03) X10*3/uL Absolute Neuts (auto) (2.0-8.3) x10*3/uL Absolute Nucleated RBC (0.0-0.012) X10*3/uL Nucleated RBC % (auto) (0.0-0.2) /100WBC Sodium (135-145) mmol/L Potassium (3.3-5.1) mmol/L Chloride (96-108) mmol/L Carbon Dioxide (22-29) mmol/L Anion Gap (12-20) BUN (9-16) mg/dL Creatinine (0.5-1.4) mg/dL Estim Creat Clear Calc Estimated GFR Random Glucose (60-115) mg/dL Calcium (8.4-10.2) mg/dL Total Bilirubin (0.0-1.0) mg/dL AST (5-37) U/L ALT (0-40) U/L Alkaline Phosphatase (39-117) U/L Troponin I High Sens < 3.5 (<3.5-35.0) ng/L Total Protein (6.5-8.0) g/dL Albumin (3.5-5.0) g/dL ECG Data ECG #1: Attestation: I personally reviewed and interpreted this ECG as follows: ECG interpretation date: 06/16/22 ECG interpretation time: 00:46 Prior ECG tracings: available for review Interpretation: Ventricular rate of 85, IL normal, QRS normal, QT/QTC normal. EKG with normal sinus rhythm and a right bundle-branch block. No ST elevations or inversions concerning for ischemia. EKG previous to other EKGs patient has had on 05/31/2022 and 02/18/2022. Critical Care Time Critical Care Time Critical Care Time: No Discharge Plan Discharge Clinical Impression: Chest pain Patient Disposition: Home, Self-Care Instructions: Chest Pain (ED) Additional Instructions: Take your medications as prescribed. If you were prescribed antibiotics today, it is important that you take your medication to their entirety, do not skip any doses, do not finish them early. Follow-up with your primary care provider this week. Follow-up with cardiology as soon as possible. Return to the emergency department with new or worsening symptoms. Such as fevers, chills, chest pain, shortness of breath, nausea, vomiting, dizziness, headache, vision changes, lethargy In case of emergency call 911 Prescriptions: No Action bisoprolol fumarate 5 mg tablet 0.5 tab PO DAILY sertraline 25 mg Tablet 25 mg PO DAILY hydroxyzine HCl 10 mg Tablet 20 mg PO QID PRN (Reason: Anxiety) verapamil 240 mg capsule,ext rel. pellets 24 hr 240 mg PO DAILY Qty: 30 0RF Referrals: Physician,Unknown J [Primary Care Provider] - 2 days Wilfredo Troncoso MD [Physician] - 2 days Stand Alone Forms: Work/School Release
--- NOTE | 2022-06-15 23:47 | ECG_ITS ---
Test Reason : CP Blood Pressure : / mmHG Vent. Rate : 085 BPM Atrial Rate : 085 BPM P-R Int : 170 ms QRS Dur : 156 ms QT Int : 422 ms P-R-T Axes : 018 250 036 degrees QTc Int : 502 ms Normal sinus rhythm Right bundle branch block Possible Lateral infarct , age undetermined Abnormal ECG When compared with ECG of 15-JUN-2022 20:35, Premature atrial complexes are no longer Present Referred By: Ava Andersen Electronically Signed By:JOYCE HUERTA MD
[2022-06-16 01:44] LABS: Troponin-I High Sensitivity < 3.5 ng/L (<3.5-35.0)
[2022-06-16 02:32] VITALS: BP 115/80; PULSE 78; RESP 14; O2SAT 99
== END 2022-06-16 02:28 | disposition home or self-care (01) ==
PROVIDERS: Physician Assistant; Emergency Provider Student in an Organized Health Care Education/Training Program
DX: R07.9 Chest pain, unspecified (principal); R51.9 Headache, unspecified; I10 Essential (primary) hypertension; I45.10 Unspecified right bundle-branch block; F12.90 Cannabis use, unspecified, uncomplicated; Z79.899 Other long term (current) drug therapy
CPT/HCPCS: 36415; 71045; 80053; 84484; 85025; 93005; 99283

== ENCOUNTER 2022-06-18 02:20 | Emergency (ER) | payer OTHER, SELFPAY ==
--- NOTE | ~2022-06-18 | XR_ITS ---
EXAMINATION: XR CHEST CLINICAL INFORMATION: Chest pain COMPARISON: 06/15/2022 TECHNIQUE: Frontal view of the chest was obtained. FINDINGS: Lung volumes are symmetric. No focal consolidation is seen. No evidence of pneumothorax, pleural effusion, or pulmonary edema. The cardiomediastinal silhouette is stable. Right-sided aortic arch again noted. Redemonstrated sternal wires and metallic density overlying the upper mediastinum. XR/XR chest 1V IMPRESSION: No acute cardiopulmonary findings.
[2022-06-18 02:22] VITALS: BP 112/86; PULSE 130; O2SAT 98
--- NOTE | 2022-06-18 02:24 | ECG_ITS ---
Test Reason : CHEST PAIN Blood Pressure : / mmHG Vent. Rate : 097 BPM Atrial Rate : 097 BPM P-R Int : 146 ms QRS Dur : 148 ms QT Int : 402 ms P-R-T Axes : 053 241 046 degrees QTc Int : 510 ms Normal sinus rhythm with sinus arrhythmia Right bundle branch block Possible Lateral infarct (cited on or before 16-JUN-2022) Abnormal ECG When compared with ECG of 16-JUN-2022 00:36, No significant changes seen Referred By: Generic ED Physician Electronically Signed By:Paul Ny
[2022-06-18 02:42] VITALS: BP 115/68; PULSE 87; RESP 20; TEMP 36.4; O2SAT 93; BMI 18.6
[2022-06-18 02:51] LABS: MANUAL DIFF FLAG NO
[2022-06-18 02:54] LABS: Basophils Absolute Auto 0.1 X10*3/uL (0.0-0.2); Basophils Percent Auto 0.8 % (0-2); Eosinophils Absolute Auto 0.4 X10*3/uL (0.0-0.4); Eosinophils Percent Auto 5.3 % (0-4); Hematocrit 45.4 % (42.0-52.0); Hemoglobin 15.4 g/dl (14.0-18.0); Imm Gran Abs Auto 0.02 X10*3/uL (0.00-0.03); Imm Gran Pct Auto 0.3 % (0.0-0.4); Lymphocytes Absolute Auto 2.3 X10*3/uL (1.2-4.9); Lymphocytes Percent Auto 30.4 % (20-40); Mean Corpuscular HGB Conc 33.9 g/dl (31.0-36.0); Mean Corpuscular Volume 85.5 fL (80.0-98.0); Mean Platelet Volume 11.1 fL (9.4-12.4); Monocytes Absolute Auto 0.7 X10*3/uL (0.1-1.2); Monocytes Percent Auto 9.5 % (2-11); Neutrophils Percent Auto 53.7 % (45-73); Platelet Count 224 X10*3/uL (160-400); Red Blood Count 5.31 X10*6/uL (4.60-5.80); White Blood Count 7.4 X10*3/uL (4.8-10.8)
[2022-06-18 03:09] LABS: Anion Gap 13 (12-20); Blood Urea Nitrogen 15 mg/dL (9-16); Calcium 9.2 mg/dL (8.4-10.2); Carbon Dioxide 23 mmol/L (22-29); Chloride 107 mmol/L (96-108); Creatinine Clr Calc Pharmacy 117.9; Estimated Glomerular Filt Rate > 60; Glucose Random 107 mg/dL (60-115); Potassium 3.9 mmol/L (3.3-5.1); Sodium 139 mmol/L (135-145)
[2022-06-18 03:16] LABS: Troponin-I High Sensitivity < 3.5 ng/L (<3.5-35.0)
[2022-06-18 06:00] VITALS: BP 103/68; PULSE 52; RESP 16; O2SAT 99
[2022-06-18 06:04] LABS: Troponin-I High Sensitivity < 3.5 ng/L (<3.5-35.0)
--- NOTE | 2022-06-18 07:04 | ED.CHESTPAIN ---
HPI - Chest Pain General Chief Complaint: Chest Pain Stated Complaint: cp Time Seen by Provider: 06/18/22 07:02 Source: patient History of Present Illness HPI narrative: 22-year-old male who presents the emergency department via EMS for palpitations with chest pressure. He denies any associated dizziness, shortness of breath, association with position change but does states that it seems to get a little bit worse with deep inspiration and denies any diaphoresis or nausea. Patient states that the palpitations is something that is been ongoing for while and endorses he does suffer from anxiety but states that last night they were far worse than with the have been lately. 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 He denies any fevers, chills, GI or Symptoms Related Data Home Medications Medication Instructions Recorded Confirmed bisoprolol fumarate 5 mg tablet 0.5 tab PO DAILY 05/31/22 05/31/22 hydroxyzine HCl 10 mg tablet 20 mg PO QID PRN Anxiety 05/31/22 05/31/22 sertraline 25 mg tablet 25 mg PO DAILY 05/31/22 05/31/22 Previous Rx's Medication Instructions Recorded verapamil 240 mg 24 hr 240 mg PO DAILY #30 caps 09/26/21 capsule,extended release Allergies Allergy/AdvReac Type Severity Reaction Status Date / Time citalopram [CITALOPRAM] Allergy Severe THROAT Verified 06/18/22 02:44 SWELLING, ANXIETY diphenhydramine Allergy Difficulty Verified 06/18/22 02:44 [From Benadryl] Breathing Review of Systems Review of Systems: Pertinent positives and negatives as stated in HPI 10 point review of systems is otherwise negative. [facility] Past Medical History Source: nursing notes reviewed Medical History HTN (hypertension) RBBB SVT (supraventricular tachycardia) Tetralogy of Fallot Social History Social History Alcohol intake: current Alcohol intake frequency: holidays/special occasions only Alcohol type: beer Patient Tobacco Use Status: Never used Tobacco Use of substances other than those prescribed or required for medical reasons: No Substance Use Type: Marijuana Advance Directives: No Advance Directives Information Provided: No Physical Exam Vital Signs: Vital Signs: Last Vital Signs Temp 97.5 F 06/18/22 02:42 Pulse 52 06/18/22 06:00 Resp 16 06/18/22 06:00 BP 103/68 06/18/22 06:00 Pulse Ox 99 06/18/22 06:00 O2 Del Method 06/18/22 06:00 BMI result Body Mass Index 18.6 VITAL SIGNS: Reviewed. GENERAL: Well developed, well nourished, in no acute distress. HEAD: Normocephalic/atraumatic EYES: PERRLA, EOMI EARS: Ext canals without abnormality OROPHARYNX: no oral lesions noted, posterior pharynx clear LUNGS: Normal breath sounds. No adventitious sounds or accessory muscle use. SpO2<99> CARDIOVASCULAR: Regular rate and rhythm without noted murmurs, no JVD or lower extremity edema. ABDOMEN: Soft, non-tender, non-distended with bowel sounds. MUSCULOSKELETAL: No tenderness, deformities, or effusions noted on gross inspection. EXTREMITIES: No cyanosis, clubbing or edema. SKIN: Inspection of the skin reveals no rashes NEUROLOGIC: Alert and oriented x 4. Strength and sensation to light touch were grossly intact x 4. Course Course Course Narrative: 22-year-old male with history and clinical presentation consistent with a possible component of anxiety, however this is the 3rd visit since the end of May and patient himself even states that this is the most he is been into the emergency room. On review of all investigations there are no acute changes on his EKG, although this is problematic as subtle changes would be difficult to identify. Patient has serial troponins which are undetectable. Signed out to Dr Mckeon f/u SANTO swab. MDM - Chest Pain Lab Data Result diagrams: 06/18/22 02:47 06/18/22 02:47 Labs: Lab Results 06/18/22 06/18/22 06/18/22 Range/Units 02:47 02:47 02:47 WBC 7.4 (4.8-10.8) X10*3/uL RBC 5.31 (4.60-5.80) X10*6/uL Hgb 15.4 (14.0-18.0) g/dl Hct 45.4 (42.0-52.0) % MCV 85.5 (80.0-98.0) fL MCH 29.0 (27.0-33.0) pg MCHC 33.9 (31.0-36.0) g/dl RDW 12.0 (11.0-16.0) % Plt Count 224 (160-400) X10*3/uL MPV 11.1 (9.4-12.4) fL Immature Gran % (Auto) 0.3 (0.0-0.4) % Neut % (Auto) 53.7 (45-73) % Lymph % (Auto) 30.4 (20-40) % [place] % (Auto) 9.5 (2-11) % Eos % (Auto) 5.3 H (0-4) % Baso % (Auto) 0.8 (0-2) % Lymph # (Auto) 2.3 (1.2-4.9) X10*3/uL [place] # (Auto) 0.7 (0.1-1.2) X10*3/uL Eos # (Auto) 0.4 (0.0-0.4) X10*3/uL Baso # (Auto) 0.1 (0.0-0.2) X10*3/uL Abs Immat Gran (auto) 0.02 (0.00-0.03) X10*3/uL Absolute Neuts (auto) 4.0 (2.0-8.3) x10*3/uL Absolute Nucleated RBC 0.000 (0.0-0.012) X10*3/uL Nucleated RBC % (auto) 0.0 (0.0-0.2) /100WBC Sodium 139 (135-145) mmol/L Potassium 3.9 (3.3-5.1) mmol/L Chloride 107 (96-108) mmol/L Carbon Dioxide 23 (22-29) mmol/L Anion Gap 13 (12-20) BUN 15 (9-16) mg/dL Creatinine 0.83 (0.5-1.4) mg/dL Estim Creat Clear Calc 117.9 Estimated GFR > 60 Random Glucose 107 (60-115) mg/dL Calcium 9.2 (8.4-10.2) mg/dL Troponin I High Sens < 3.5 (<3.5-35.0) ng/L 06/18/22 Range/Units 05:37 WBC (4.8-10.8) X10*3/uL RBC (4.60-5.80) X10*6/uL Hgb (14.0-18.0) g/dl Hct (42.0-52.0) % MCV (80.0-98.0) fL MCH (27.0-33.0) pg MCHC (31.0-36.0) g/dl RDW (11.0-16.0) % Plt Count (160-400) X10*3/uL MPV (9.4-12.4) fL Immature Gran % (Auto) (0.0-0.4) % Neut % (Auto) (45-73) % Lymph % (Auto) (20-40) % [place] % (Auto) (2-11) % Eos % (Auto) (0-4) % Baso % (Auto) (0-2) % Lymph # (Auto) (1.2-4.9) X10*3/uL [place] # (Auto) (0.1-1.2) X10*3/uL Eos # (Auto) (0.0-0.4) X10*3/uL Baso # (Auto) (0.0-0.2) X10*3/uL Abs Immat Gran (auto) (0.00-0.03) X10*3/uL Absolute Neuts (auto) (2.0-8.3) x10*3/uL Absolute Nucleated RBC (0.0-0.012) X10*3/uL Nucleated RBC % (auto) (0.0-0.2) /100WBC Sodium (135-145) mmol/L Potassium (3.3-5.1) mmol/L Chloride (96-108) mmol/L Carbon Dioxide (22-29) mmol/L Anion Gap (12-20) BUN (9-16) mg/dL Creatinine (0.5-1.4) mg/dL Estim Creat Clear Calc Estimated GFR Random Glucose (60-115) mg/dL Calcium (8.4-10.2) mg/dL Troponin I High Sens < 3.5 (<3.5-35.0) ng/L ECG Data ECG #1: Attestation: I personally reviewed and interpreted this ECG as follows: Prior ECG tracings: available for review Interpretation: normal sinus rhythm with sinus arrhythmia, RBBB, HR- 97, no STEMI, AR within normal limits. Discharge Plan Discharge Clinical Impression: Chest pain, Heart palpitations Patient Disposition: Still a Patient Instructions: Heart Palpitations (ED), Chest Pain (ED) Additional Instructions: 1. Resume all home medications as prescribed. 2. Keep your appointment with your physician on 06/22. Do not hesitate to return to the emergency room if you experience worsening of your symptoms. Prescriptions: No Action bisoprolol fumarate 5 mg tablet 0.5 tab PO DAILY sertraline 25 mg Tablet 25 mg PO DAILY hydroxyzine HCl 10 mg Tablet 20 mg PO QID PRN (Reason: Anxiety) verapamil 240 mg capsule,ext rel. pellets 24 hr 240 mg PO DAILY Qty: 30 0RF Stand Alone Forms: Work/School Release
[2022-06-18 07:42] LABS: COVID-19 Test Negative (Negative); IDNOW Serial# 16C4AD1C
== END 2022-06-18 07:55 | disposition home or self-care (01) ==
PROVIDERS: Emergency Provider Student in an Organized Health Care Education/Training Program
DX: R07.89 Other chest pain (principal); R00.2 Palpitations; Z20.822 Contact with and (suspected) exposure to COVID-19; Z79.899 Other long term (current) drug therapy
CPT/HCPCS: 36415; 71045; 80048; 84484; 85025; 87635; 93005; 99284

== ENCOUNTER 2022-07-22 21:01 | Emergency (ER) | payer OTHER, SELFPAY ==
--- NOTE | 2022-07-22 07:36 | ECG_ITS ---
Test Reason : SYNCOPE Blood Pressure : / mmHG Vent. Rate : 055 BPM Atrial Rate : 055 BPM P-R Int : 156 ms QRS Dur : 156 ms QT Int : 452 ms P-R-T Axes : 008 250 041 degrees QTc Int : 432 ms Sinus bradycardia with sinus arrhythmia Right bundle branch block Abnormal ECG When compared with ECG of 22-JUL-2022 21:16, Premature supraventricular complexes are no longer Present Referred By: Daniel Hall Electronically Signed By:DRAGAN BARTLETT
[2022-07-22 21:03] VITALS: BP 106/84; PULSE 55; O2SAT 99
--- NOTE | 2022-07-22 21:07 | ECG_ITS ---
Test Reason : SYNCOPE Blood Pressure : / mmHG Vent. Rate : 055 BPM Atrial Rate : 055 BPM P-R Int : 156 ms QRS Dur : 152 ms QT Int : 460 ms P-R-T Axes : 008 251 038 degrees QTc Int : 440 ms Sinus bradycardia with Premature supraventricular complexes Right bundle branch block Abnormal ECG When compared with ECG of 18-JUN-2022 02:29, Premature supraventricular complexes are now Present Vent. rate has decreased BY 42 BPM QT has shortened Referred By: Generic ED Physician Electronically Signed By:DRAGAN BARTLETT
[2022-07-22 21:27] LABS: MANUAL DIFF FLAG NO
[2022-07-22 21:28] LABS: Basophils Absolute Auto 0.1 X10*3/uL (0.0-0.2); Eosinophils Absolute Auto 0.3 X10*3/uL (0.0-0.4); Eosinophils Percent Auto 4.3 % (0-4); Hematocrit 46.6 % (42.0-52.0); Hemoglobin 15.4 g/dl (14.0-18.0); Imm Gran Abs Auto 0.02 X10*3/uL (0.00-0.03); Imm Gran Pct Auto 0.3 % (0.0-0.4); Lymphocytes Absolute Auto 1.5 X10*3/uL (1.2-4.9); Mean Corpuscular Hemoglobin 29.1 pg (27.0-33.0); Mean Corpuscular Volume 88.1 fL (80.0-98.0); Monocytes Absolute Auto 0.6 X10*3/uL (0.1-1.2); Neutrophils Absolute Auto 4.2 x10*3/uL (2.0-8.3); Neutrophils Percent Auto 62.4 % (45-73); Platelet Count 220 X10*3/uL (160-400); Red Blood Count 5.29 X10*6/uL (4.60-5.80); Red Cell Distribution Width 11.6 % (11.0-16.0); White Blood Count 6.7 X10*3/uL (4.8-10.8)
[2022-07-22 21:44] LABS: Alanine Aminotransferase 15 U/L (0-40); Albumin Level 4.2 g/dL (3.5-5.0); Alkaline Phosphatase 83 U/L (39-117); Anion Gap 12 (12-20); Aspartate Amino Transferase 20 U/L (5-37); Bilirubin Direct 0.2 mg/dL (0.0-0.5); Bilirubin Total 0.4 mg/dL (0.0-1.0); Blood Urea Nitrogen 15 mg/dL (9-16); Calcium 9.6 mg/dL (8.4-10.2); Carbon Dioxide 27 mmol/L (22-29); Chloride 106 mmol/L (96-108); Estimated Glomerular Filt Rate > 60; Glucose Random 100 mg/dL (60-115); Potassium 4.4 mmol/L (3.3-5.1); Sodium 141 mmol/L (135-145); Total Protein 6.9 g/dL (6.5-8.0)
[2022-07-22 21:49] LABS: Troponin-I High Sensitivity < 3.5 ng/L (<3.5-35.0)
== END 2022-07-22 22:27 | disposition left against medical advice (07) ==
PROVIDERS: Emergency Provider Emergency Medicine
DX: R55 Syncope and collapse (principal); Z79.899 Other long term (current) drug therapy
CPT/HCPCS: 36415; 80053; 82248; 84484; 85025; 93005; 99282

== ENCOUNTER 2022-09-22 13:42 | Emergency (ER) | payer OTHER, SELFPAY ==
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
[2022-09-22 13:46] VITALS: BP 113/75; PULSE 120; RESP 18; TEMP 36.8; O2SAT 94; BMI 21.0
--- NOTE | 2022-09-22 13:49 | ECG_ITS ---
Test Reason : CHEST PAIN/PALPITATIONS Blood Pressure : / mmHG Vent. Rate : 113 BPM Atrial Rate : 113 BPM P-R Int : 148 ms QRS Dur : 142 ms QT Int : 366 ms P-R-T Axes : 060 253 055 degrees QTc Int : 502 ms Sinus tachycardia Possible Left atrial enlargement Right bundle branch block Left anterior fascicular block Abnormal ECG When compared with ECG of 22-JUL-2022 21:16, Vent. rate has increased BY 58 BPM Referred By: Generic ED Physician Electronically Signed By:HOUSTON ANDREW MD
[2022-09-22 14:18] LABS: COVID-19 Test Negative (Negative)
== END 2022-09-22 15:55 | disposition left against medical advice (07) ==
PROVIDERS: Emergency Provider Emergency Medicine
DX: R00.2 Palpitations (principal); Z20.822 Contact with and (suspected) exposure to COVID-19; I10 Essential (primary) hypertension; I45.10 Unspecified right bundle-branch block; I47.1 Supraventricular tachycardia; Q21.3 Tetralogy of Fallot; F12.90 Cannabis use, unspecified, uncomplicated
CPT/HCPCS: 71045; 87635; 93005; 99283

== ENCOUNTER 2022-11-05 17:58 | Emergency (ER) | payer OTHER, SELFPAY ==
[2022-11-05 18:57] VITALS: BP 122/76; PULSE 80
--- NOTE | 2022-11-05 19:50 | PC.NURSE ---
Pt called for triage, pt not in waiting room at this time.
== END 2022-11-05 20:20 | disposition left against medical advice (07) ==
LOC: HO.ED 19:57
PROVIDERS: Emergency Provider Emergency Medicine
DX: R56.9 Unspecified convulsions (principal)

== ENCOUNTER 2022-11-25 13:45 | Emergency (ER) | payer OTHER, SELFPAY ==
--- OUTSIDE RECORDS SUMMARY | 2022-11-25 13:53 | XMS_ITS | Continuity of Care Document ---
:2000 Demographics Address [address] [place] [address]
--- OUTSIDE RECORDS SUMMARY | 2022-11-25 13:53 | XMS_ITS | Continuity of Care Document ---
:2000 Author Organization [facility] Address [address] [place] [id number]- Care Team Providers Name Role Phone Allen Bunn MD Primary Care Physician Encounter [facility] Date(s): 04/04/21 - 06/08/21
[2022-11-25 13:54] VITALS: BP 124/72; BP 131/83; PULSE 80; PULSE 90; RESP 16; TEMP 36.7; O2SAT 96; BMI 21.2
--- OUTSIDE RECORDS SUMMARY | 2022-11-25 13:55 | XMS_ITS | Continuity of Care Document ---
:2000 Author Organization [facility] Address [address] [place] [id number]- Care Team Providers
--- NOTE | 2022-11-25 14:28 | PC.NURSE ---
pt medicated for 2/10 hand pain per order
--- NOTE | 2022-11-25 14:55 | ED_ITS ---
HPI - Extremity Problem General Chief complaint: Extremity Injury, Upper Stated complaint: LACERATION HAND Time Seen by Provider: 11/25/22 13:48 Source: patient Mode of arrival: ambulatory History of Present Illness HPI Narrative: 22-year-old male with past medical history of hypertension RBBB, SVT, TOF, presenting to the ED complaining of right hand injury s/p hand going through lizard cage s/p using hoverboard [employer]. Reports punched through the glass. Tetanus up-to-date. Denies injury to the area, numbness/tingling. Suspects retained foreign body MD Complaint: extremity pain Onset (ago): hour(s) Related Data Home Medications Medication Instructions Recorded Confirmed bisoprolol fumarate 5 mg tablet 0.5 tab PO DAILY 05/31/22 05/31/22 hydroxyzine HCl 10 mg tablet 20 mg PO QID PRN Anxiety 05/31/22 05/31/22 sertraline 25 mg tablet 25 mg PO DAILY 05/31/22 05/31/22 Previous Rx's Medication Instructions Recorded verapamil 240 mg 24 hr 240 mg PO DAILY #30 caps 09/26/21 capsule,extended release Allergies Allergy/AdvReac Type Severity Reaction Status Date / Time citalopram [CITALOPRAM] Allergy Severe THROAT Verified 11/25/22 13:54 SWELLING, ANXIETY diphenhydramine Allergy Difficulty Verified 11/25/22 13:54 [From Benadryl] Breathing Review of Systems Review of Systems: Constitutional: No Fever, No Chills ENT/Mouth: No Ear Pain, No Nasal Congestion, No Sinus Pain, No Hoarseness, No sore throat, No Rhinorrhea, No Swallowing Difficulty Cardiovascular: No Chest Pain, No SOB Respiratory: No Cough, No Sputum, No Wheezing Gastrointestinal: No Nausea, No Vomiting, No Diarrhea, No Constipation, No Abdominal pain Genitourinary: No Dysuria, No Urinary Frequency, No Hematuria, No Flank Pain Musculoskeletal: + joint pain, No Myalgias, No Joint Swelling Skin: + Skin Lesions, No rash Neuro: No Weakness, No Numbness, No Paresthesias Yes all other systems are reviewed and are negative Constitutional: Constitutional: Reports as per [facility] Past Medical History Attestation statement: The following information was validated with the patient. Medical History HTN (hypertension) RBBB SVT (supraventricular tachycardia) Tetralogy of Fallot Social History Social History Alcohol intake: current Alcohol intake frequency: holidays/special occasions only Alcohol type: beer Patient Tobacco Use Status: Never used Tobacco Substance Use Type: Marijuana Advance Directives: No Physical Exam Vital Signs: Vital Signs: Last Vital Signs Temp 98.0 F 11/25/22 13:54 Pulse 90 11/25/22 13:54 Resp 16 11/25/22 13:54 BP 131/83 11/25/22 13:54 Pulse Ox 96 11/25/22 13:54 O2 Del Method 11/25/22 13:54 BMI result Body Mass Index 21.2 Const: General: cooperative, healthy appearing and no acute distress Orientation/consciousness: patient oriented x3 Limitations: no limitations HEENT: Head: Yes normal to inspection and Yes atraumatic Ears: hearing grossly normal bilaterally General nose exam: Normal external nose present Face and sinus: Yes normal facial exam Eyes: General: appearance normal, both eyes and all related structures EOM: EOMs intact bilaterally Neck: Neck: Yes normal visual inspection and Yes no meningeal signs Resp: Effort & Inspection: normal respiratory effort and no respiratory distress Cardio: Rate: regular rate Heart sounds: S1 normal heart sound present and S2 normal heart sound present Peripheral pulses: radial pulses present and ulnar radial pulses present Skin: Other: + superficial abrasions noted to right 4th digit PIP + small abrasion to lateral aspect of right thumb with small piece of retained glass Rashes: no rashes Neuro: General: patient oriented x3, tone normal and no meningeal signs Gait exam (Neuro): Normal gait present Extrem: Other: FROM intact to all digits on right hand, NV intact, finger to thumb opposition intact. No snuffbox tenderness. Course Course Course Narrative: XR hand RT min 3V IMPRESSION: ? No acute osseous abnormality. Results discussed with patient including worrisome signs and symptoms and strict return precautions, and when to return to the emergency department. They verbalized understanding and feel safe for discharge at this time. Medications Administered Discontinued Medications Generic Name Dose Route Start Last Admin Trade Name Freq PRN Reason Stop Dose Admin Acetaminophen 650 mg 11/25/22 14:20 11/25/22 14:26 Acetaminophen 325 Mg Tablet PO 11/25/22 14:21 650 mg ONCE ONE Administration Medical Decision Making Medical Decision Making MDM Narrative: 22-year-old male with past medical history of hypertension RBBB, SVT, TOF, presenting to the ED complaining of right hand injury s/p hand going through lizard cage s/p using hoverboard [employer]. On exam vital signs stable, NAD, nontoxic appearing physical exam as above with superficial abrasions to right hand and small piece of retained glass that was removed without complication. Tetanus up-to-date. concern for fracture vs other retained glass vs sprain Plan: X-rays Differential Diagnosis Differential Diagnoses: The differential diagnosis associated with the presentation includes Discharge Plan Discharge Clinical Impression: Hand injury, Abrasion Patient Disposition: Home, Self-Care Instructions: Hand Sprain (ED) Additional Instructions: The x-ray of her hand is unremarkable, there is no retained glass. Apply bacitracin or Neosporin to your cuts. Keep clean. If begin to look infected, red, there is drainage or you fever return to the emergency department. Take Tylenol Motrin for pain Prescriptions: No Action bisoprolol fumarate 5 mg tablet 0.5 tab PO DAILY sertraline 25 mg Tablet 25 mg PO DAILY hydroxyzine HCl 10 mg Tablet 20 mg PO QID PRN (Reason: Anxiety) verapamil 240 mg capsule,ext rel. pellets 24 hr 240 mg PO DAILY Qty: 30 0RF Referrals: Physician,Unknown J [Primary Care Provider] - Discharge Date/Time: 11/25/22 15:05
--- NOTE | 2022-11-25 15:05 | PC.NURSE ---
upon discharge patient had 2/10 pain
== END 2022-11-25 15:05 | disposition home or self-care (01) ==
PROVIDERS: Emergency Provider Student in an Organized Health Care Education/Training Program
DX: S60.511A Abrasion of right hand, initial encounter (principal); W25.XXXA Contact with sharp glass, initial encounter; Y93.9 Activity, unspecified; Y92.9 Unspecified place or not applicable; Y99.9 Unspecified external cause status; Z79.899 Other long term (current) drug therapy
CPT/HCPCS: 10120; 73130; 99283

== ENCOUNTER 2022-12-19 08:32 | Emergency (ER) | payer OTHER, SELFPAY ==
[2022-12-19 08:45] VITALS: BP 119/79; PULSE 95; RESP 18; TEMP 36.6; O2SAT 98; BMI 21.2
--- NOTE | 2022-12-19 09:03 | ED_ITS ---
HPI - URI/Sore Throat General Chief Complaint: Upper Respiratory Symptoms Stated Complaint: Congestion/Ear ache/Vomiting Time Seen by Provider: 12/19/22 09:01 Source: patient Mode of arrival: ambulatory Limitations: no limitations History of Present Illness HPI Narrative: 22 yo male presents to the ER with nasal congestion, runny nose and headache that started last night. He presents with his significant other and his 2 children who all have similar symptoms. He reports right ear pain, sinus pressure and headache. No fevers, N/V/D or abdominal pain. No SOB or difficulty breathing. MD elicited complaint: nasal congestion and sinus pain Onset (ago): day(s) (1) Consistency: progressively worsening Severity: moderate Description of mucous: clear and watery Able to tolerate fluids by mouth: Yes Exacerbating factors: supine positioning Relieving factors: nothing Context: sick contacts Associated symptoms: rhinorrhea, nasal congestion, cough and ear pain Treatments prior to arrival: none Related Data Home Medications Medication Instructions Recorded Confirmed bisoprolol fumarate 5 mg tablet 0.5 tab PO DAILY 05/31/22 05/31/22 hydroxyzine HCl 10 mg tablet 20 mg PO QID PRN Anxiety 05/31/22 05/31/22 sertraline 25 mg tablet 25 mg PO DAILY 05/31/22 05/31/22 Previous Rx's Medication Instructions Recorded verapamil 240 mg 24 hr 240 mg PO DAILY #30 caps 09/26/21 capsule,extended release fluticasone propionate 50 1 spray intranasal BID #16 grams 12/19/22 mcg/actuation nasal spray,suspension (Flonase Allergy Relief) Allergies Allergy/AdvReac Type Severity Reaction Status Date / Time citalopram [CITALOPRAM] Allergy Severe THROAT Verified 12/19/22 08:48 SWELLING, ANXIETY diphenhydramine Allergy Difficulty Verified 12/19/22 08:48 [From Benadryl] Breathing Review of Systems Review of Systems: Yes all other systems are reviewed and are negative [facility] Past Medical History Medical History HTN (hypertension) RBBB SVT (supraventricular tachycardia) Tetralogy of Fallot Social History Social History Alcohol intake: current Alcohol intake frequency: holidays/special occasions only Alcohol type: beer Patient Tobacco Use Status: Never used Tobacco Substance Use Type: Marijuana Advance Directives: No Advance Directives Information Provided: No Physical Exam Vital Signs: Vital Signs: Last Vital Signs Temp 98 F 12/19/22 08:45 Pulse 95 12/19/22 08:45 Resp 18 12/19/22 08:45 BP 119/79 12/19/22 08:45 Pulse Ox 98 12/19/22 08:45 O2 Del Method 12/19/22 08:45 BMI result Body Mass Index 21.2 Appearance: Alert. Oriented X3. No acute distress. Eyes: Pupils equal, round and reactive to light. ENT: Pharynx normal. Right TM with effusion but no erythema or bulging. Clear nasal disharge; Neck: Normal inspection. Neck supple. No cervical LAD. CVS: Normal heart rate and rhythm. Pulses normal. Respiratory: No respiratory distress. Breath sounds normal. Skin: Skin warm and dry. Normal skin color. Normal skin turgor. No rashes. Extremities: No lower extremity edema. Neuro: Oriented X 3. Nonfocal Course Course Course Narrative: 22 yo male presenting with headache, right ear pain, and nasal discharge since last night in the setting of sick contacts at home. VSS and exam is unremarkable. Viral swabs pending. Reevaluation(s) Reevaluation #1: swabs negative. stable for d/c home with supportive care. Medical Decision Making Differential Diagnosis Differential Diagnoses: The differential diagnosis associated with the presentation includes COVID, Flu, RSV, other viral syndrome, AOM, otitis externa, sinus infection Lab Data MDM Lab Attestation statement: I reviewed the patient's lab results. Labs: Lab Results 12/19/22 Range/Units 08:55 Influenza Type A (PCR) NEGATIVE (Negative) Influenza Type B (PCR) NEGATIVE (Negative) RSV RNA Qual (PCR) NEGATIVE (Negative) SARS-CoV-2 RNA (RT-PCR) NEGATIVE (Negative) Independent Historian Clinical information obtained from an independent historian. History obtained from or confirmed by: Spouse External Record Review External record reviewed: Prior outpatient labs Tests considered The following testing was considered but not selected: CXR not needed -lungs clear, saturating well Prescription Management I considered prescription management with: Antibiotic no evidence of AOM, no abx indicated, viral process Critical Care Time Critical Care Time Critical Care Time: No Discharge Plan Discharge Clinical Impression: Viral infection Patient Disposition: Home, Self-Care Instructions: Viral Syndrome (ED) Additional Instructions: You tested negative for Flu, COVID, and RSV. Use the prescribed nasal spray. Rest and stay hydrated. Take over the counter cold/flu medications as needed for your symptoms. If you develop new or worsening symptoms call 911 or come back to the ER for further evaluation. Prescriptions: New fluticasone propionate [Flonase Allergy Relief] 50 mcg/actuation spray,suspension 1 spray intranasal BID Qty: 16 0RF Rx Instructions: administer into each nostril No Action bisoprolol fumarate 5 mg tablet 0.5 tab PO DAILY sertraline 25 mg Tablet 25 mg PO DAILY hydroxyzine HCl 10 mg Tablet 20 mg PO QID PRN (Reason: Anxiety) verapamil 240 mg capsule,ext rel. pellets 24 hr 240 mg PO DAILY Qty: 30 0RF
[2022-12-19 09:53] LABS: Influenza A PCR NEGATIVE (Negative); Influenza B PCR NEGATIVE (Negative); Resp Syncy Virus RNA Qual PCR NEGATIVE (Negative); SARS COV2 PCR INHOUSE NEGATIVE (Negative)
== END 2022-12-19 11:08 | disposition home or self-care (01) ==
PROVIDERS: Emergency Provider Emergency Medicine
DX: B34.9 Viral infection, unspecified (principal); H92.01 Otalgia, right ear; Z20.822 Contact with and (suspected) exposure to COVID-19; Z20.828 Contact with and (suspected) exposure to other viral communicable diseases; I10 Essential (primary) hypertension; F12.90 Cannabis use, unspecified, uncomplicated; Z79.899 Other long term (current) drug therapy
CPT/HCPCS: 0241U; 99283

== ENCOUNTER 2023-06-20 12:27 | Emergency (ER) | payer OTHER, SELFPAY ==
--- NOTE | 2023-06-20 | ECG_ITS ---
Test Reason : ABNORMAL RHYTHM Blood Pressure : / mmHG Vent. Rate : 076 BPM Atrial Rate : 076 BPM P-R Int : 178 ms QRS Dur : 156 ms QT Int : 428 ms P-R-T Axes : -13 237 027 degrees QTc Int : 481 ms Normal sinus rhythm with sinus arrhythmia Right bundle branch block Possible Lateral infarct (cited on or before 20-JUN-2023) Abnormal ECG When compared with ECG of 22-SEP-2022 13:51, Vent. rate has decreased BY 37 BPM Referred By: Generic ED Physician Electronically Signed By:Paul Ny
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
[2023-06-20 12:39] VITALS: BP 124/74; BP 129/82; PULSE 82; PULSE 85; RESP 14; TEMP 36.6; O2SAT 94; O2SAT 95; BMI 21.5
--- NOTE | 2023-06-20 13:44 | ED.GENADULT ---
HPI - General Adult General Chief complaint: General Medical Stated complaint: coughing phlegm w/blood, lower abdominal pain Time Seen by Provider: 06/20/23 13:23 Source: patient Mode of arrival: EMS Limitations: no limitations History of Present Illness HPI narrative: 23-year-old male with history of tetralogy of Fallot presents with hemoptysis. Symptoms started today. He was lying in his bed when he started to have BRB after coughing. Symptoms are severe. No clear relieving or exacerbating features. No CP, SOB, palpitations. + congestions. No bruising or bleeding. not on blood thinning medications. Never had this before. No TB risk factors. No recent night sweats or weight loss. Symptoms were considered severe at the time but now asymptomatic and feels good. Related Data Home Medications Medication Instructions Recorded Confirmed bisoprolol fumarate 5 mg tablet 0.5 tab PO DAILY 05/31/22 05/31/22 hydroxyzine HCl 10 mg tablet 20 mg PO QID PRN Anxiety 05/31/22 05/31/22 sertraline 25 mg tablet 25 mg PO DAILY 05/31/22 05/31/22 Previous Rx's Medication Instructions Recorded verapamil 240 mg 24 hr 240 mg PO DAILY #30 caps 09/26/21 capsule,extended release fluticasone propionate 50 1 spray intranasal BID #16 grams 12/19/22 mcg/actuation nasal spray,suspension (Flonase Allergy Relief) Allergies Allergy/AdvReac Type Severity Reaction Status Date / Time citalopram [CITALOPRAM] Allergy Severe THROAT Verified 06/20/23 12:48 SWELLING, ANXIETY diphenhydramine Allergy Difficulty Verified 06/20/23 12:48 [From Benadryl] Breathing Review of Systems Review of Systems: CONSTITUTIONAL: Denies weight loss, fever and chills. HEENT: Denies changes in vision and hearing. RESPIRATORY: Denies SOB + cough. CV: Denies palpitations no CP. GI: Denies abdominal pain, nausea, vomiting and diarrhea. : Denies dysuria and urinary frequency. MSK: Denies myalgia and joint pain. SKIN: Denies rash and pruritus. NEUROLOGICAL: Denies headache and syncope. PSYCHIATRIC: Denies recent changes in mood. Denies anxiety and depression. All other ROS are negative unless in HPI PMFSH Past Medical History Attestation statement: The following information was validated with the patient. Medical History HTN (hypertension) RBBB SVT (supraventricular tachycardia) Tetralogy of Fallot Social History Social History Alcohol intake: never Patient Tobacco Use Status: Never used Tobacco Smoked in Last 30 Days: No Use of substances other than those prescribed or required for medical reasons: No Substance Use Type: Marijuana Advance Directives: No Physical Exam ED Vital Signs: Vital Signs - 24 hr 06/20/23 12:39 Temperature 97.8 F Pulse Rate 82 Respiratory Rate 14 Blood Pressure 124/74 Pulse Oximetry 94 Oxygen Delivery Method Room Air BMI result Body Mass Index 21.5 GEN: Well developed, no acute distress, alert, oriented HEENT: Normocephalic, atraumatic, normal external ears, nose appears normal, no oropharyngeal edema or exudates, no active bleeding but dried blood in right nostril Eyes: Normal to appearance Neck: Supple, no lymphadenopathy Respiratory: Talks in complete sentences, no respiratory distress, clear to auscultation bilaterally Cardiovascular: Regular rate and rhythm, no murmurs rubs Fixed split S1 Abdomen: Soft, nontender, nondistended, no guarding, no rebound Back: No CVA tenderness Extremities: No clubbing cyanosis or edema Neurologic: No focal neurologic deficits, cranial nerves 2-12 intact, strength is 5/5 bilaterally Skin: No rash Course Course Course Narrative: It is 3:23 p.m.. The workup is complete. Chest x-ray shows no acute cardiopulmonary disease. He has no risk factors for pulmonary embolus. Has no risk factors for tuberculosis and there are no cavitary lesions. Etiology of the hemoptysis could likely be from postnasal bleeding from epistaxis. Other possibilities would be capillary related rupture. He has had no further episodes since he has been in the emergency department. Blood counts remained stable. He does have an abnormal but stable EKG with right bundle-branch block secondary to a tetralogy of Fallot . Patient was given instruction to return for any worsening or concerning symptoms. Medical Decision Making Medical Decision Making MDM Narrative: MILD Hemoptysis While most commonly idiopathic, patient?s presentation appears ML Not on anticoagulation. No h/o tracheostomy to invade the innominate artery. Workup: CXR Given History, Exam, and Workup presentation most consistent with?Low Risk? Hemoptysis?2/2 coughing in setting of transient airway inflammation v post nasal epistaxis I have a low suspicion for diffuse alveolar hemorrhage (drug induced, procedure induced, infectious, or other),?pulmonary TB, PE causing distal lung necrosis, vasculitis. Differential Diagnosis Differential Diagnoses: The differential diagnosis associated with the presentation includes (see above) Admission/Observation Consideration of admission/observation: Escalation of care including admission/observation considered Lab Data MDM Lab Attestation statement: I reviewed the patient's lab results. 06/20/23 13:55 06/20/23 13:55 Labs: Lab Results 06/20/23 06/20/23 06/20/23 Range/Units 13:55 13:55 13:55 WBC 7.3 (4.8-10.8) X10*3/uL RBC 5.12 (4.60-5.80) X10*6/uL Hgb 14.7 (14.0-18.0) g/dl Hct 43.7 (42.0-52.0) % MCV 85.4 (80.0-98.0) fL MCH 28.7 (27.0-33.0) pg MCHC 33.6 (31.0-36.0) g/dl RDW 12.1 (11.0-16.0) % Plt Count 208 (160-400) X10*3/uL MPV 10.8 (9.4-12.4) fL Immature Gran % (Auto) 0.1 (0.0-0.4) % Neut % (Auto) 74.1 H (45-73) % Lymph % (Auto) 14.4 L (20-40) % Woodson % (Auto) 8.5 (2-11) % Eos % (Auto) 2.5 (0-4) % Baso % (Auto) 0.4 (0-2) % Lymph # (Auto) 1.1 L (1.2-4.9) X10*3/uL Woodson # (Auto) 0.6 (0.1-1.2) X10*3/uL Eos # (Auto) 0.2 (0.0-0.4) X10*3/uL Baso # (Auto) 0.0 (0.0-0.2) X10*3/uL Abs Immat Gran (auto) 0.01 (0.00-0.03) X10*3/uL Absolute Neuts (auto) 5.4 (2.0-8.3) x10*3/uL Absolute Nucleated RBC 0.000 (0.0-0.012) X10*3/uL Nucleated RBC % (auto) 0.0 (0.0-0.2) /100WBC PT 13.4 H (10.0-13.1) SEC INR 1.2 H (0.9-1.1) APTT 33.5 (26.0-36.4) SEC Sodium 140 (135-145) mmol/L Potassium 3.8 (3.3-5.1) mmol/L Chloride 105 (96-108) mmol/L Carbon Dioxide 27 (22-29) mmol/L Anion Gap 12 (12-20) BUN 11 (9-16) mg/dL Creatinine 0.84 (0.5-1.4) mg/dL Estim Creat Clear Calc 133.1 Estimated GFR > 60 Random Glucose 84 (60-115) mg/dL Calcium 9.6 (8.4-10.2) mg/dL Magnesium 2.0 (1.6-2.6) mg/dL Total Bilirubin 0.6 (0.0-1.0) mg/dL AST 17 (5-37) U/L ALT 8 (0-40) U/L Alkaline Phosphatase 95 (39-117) U/L Total Protein 7.4 (6.5-8.0) g/dL Albumin 4.3 (3.5-5.0) g/dL Independent Interpretation I performed an independent interpretation of an: EKG (Normal sinus rhythm heart rate 76, right bundle-branch block no significant changes from June 18, 2022), Plain X-Ray (Chest: No acute cardiopulmonary disease) and Ultrasound Radiology Impression Discussion of test interpretation with radiology: I have reviewed the radiologist's reading. Radiologist Impression: XR/XR chest 1V IMPRESSION: No acute abnormality. ? Dictated By: Nate Mackey MD Signed By: <Electronically signed by Nate Mackey MD in OV> 06/20/23 1338 Independent Historian Clinical information obtained from an independent historian. History obtained from or confirmed by: EMS Tests considered The following testing was considered but not selected: PFTs - not indicated in ED. Prescription Management I considered prescription management with: Antibiotic Discharge Plan Discharge Clinical Impression: Hemoptysis Patient Disposition: Home, Self-Care Instructions: Hemoptysis (ED) Prescriptions: No Action bisoprolol fumarate 5 mg tablet 0.5 tab PO DAILY sertraline 25 mg Tablet 25 mg PO DAILY hydroxyzine HCl 10 mg Tablet 20 mg PO QID PRN (Reason: Anxiety) verapamil 240 mg capsule,ext rel. pellets 24 hr 240 mg PO DAILY Qty: 30 0RF fluticasone propionate [Flonase Allergy Relief] 50 mcg/actuation spray,suspension 1 spray intranasal BID Qty: 16 0RF Rx Instructions: administer into each nostril Referrals: Juan Davidson MD [Primary Care Provider] - 2 days
[2023-06-20 14:01] LABS: MANUAL DIFF FLAG NO
[2023-06-20 14:07] LABS: Basophils Percent Auto 0.4 % (0-2); Eosinophils Absolute Auto 0.2 X10*3/uL (0.0-0.4); Eosinophils Percent Auto 2.5 % (0-4); Hematocrit 43.7 % (42.0-52.0); Hemoglobin 14.7 g/dl (14.0-18.0); Imm Gran Abs Auto 0.01 X10*3/uL (0.00-0.03); Imm Gran Pct Auto 0.1 % (0.0-0.4); Lymphocytes Absolute Auto 1.1 X10*3/uL (1.2-4.9); Lymphocytes Percent Auto 14.4 % (20-40); Mean Corpuscular HGB Conc 33.6 g/dl (31.0-36.0); Mean Corpuscular Hemoglobin 28.7 pg (27.0-33.0); Mean Corpuscular Volume 85.4 fL (80.0-98.0); Mean Platelet Volume 10.8 fL (9.4-12.4); Monocytes Absolute Auto 0.6 X10*3/uL (0.1-1.2); Monocytes Percent Auto 8.5 % (2-11); Neutrophils Absolute Auto 5.4 x10*3/uL (2.0-8.3); Neutrophils Percent Auto 74.1 % (45-73); Platelet Count 208 X10*3/uL (160-400); Red Blood Count 5.12 X10*6/uL (4.60-5.80); Red Cell Distribution Width 12.1 % (11.0-16.0); White Blood Count 7.3 X10*3/uL (4.8-10.8)
[2023-06-20 14:09] LABS: INTERNATIONAL NORM RATIO 1.2 (0.9-1.1); Prothrombin Time 13.4 SEC (10.0-13.1)
[2023-06-20 14:12] LABS: Partial Thromboplastin Time 33.5 SEC (26.0-36.4)
[2023-06-20 14:20] LABS: Alanine Aminotransferase 8 U/L (0-40); Albumin Level 4.3 g/dL (3.5-5.0); Alkaline Phosphatase 95 U/L (39-117); Anion Gap 12 (12-20); Aspartate Amino Transferase 17 U/L (5-37); Bilirubin Total 0.6 mg/dL (0.0-1.0); Blood Urea Nitrogen 11 mg/dL (9-16); Calcium 9.6 mg/dL (8.4-10.2); Carbon Dioxide 27 mmol/L (22-29); Chloride 105 mmol/L (96-108); Creatinine Clr Calc Pharmacy 133.1; Estimated Glomerular Filt Rate > 60; Glucose Random 84 mg/dL (60-115); Potassium 3.8 mmol/L (3.3-5.1); Sodium 140 mmol/L (135-145); Total Protein 7.4 g/dL (6.5-8.0)
== END 2023-06-20 15:39 | disposition home or self-care (01) ==
PROVIDERS: Physician Assistant Medical; Emergency Provider Emergency Medicine; PCP Internal Medicine
DX: R04.2 Hemoptysis (principal); I10 Essential (primary) hypertension; I45.10 Unspecified right bundle-branch block; Q21.3 Tetralogy of Fallot; F12.90 Cannabis use, unspecified, uncomplicated; Z79.899 Other long term (current) drug therapy
CPT/HCPCS: 36415; 71045; 80053; 83735; 85025; 85610; 85730; 93005; 99283; 99284

== ENCOUNTER → 2023-06-20 12:42 | Outpatient (BNV) | payer OTHER, SELFPAY | PROVIDERS: Emergency Provider Emergency Medicine; PCP Internal Medicine; Visit Provider Internal Medicine Cardiovascular Disease | DX: I49.9 Cardiac arrhythmia, unspecified (principal); I45.10 Unspecified right bundle-branch block | CPT/HCPCS: 93010 ==

== ENCOUNTER 2023-06-20 19:07 | Observation (INO) | payer OTHER, SELFPAY ==
--- NOTE | ~2023-06-20 | CT_ITS ---
EXAMINATION: CT CHEST WITH CONTRAST CLINICAL INFORMATION: Hemoptysis. COMPARISON: Chest x-ray 06/20/2023 TECHNIQUE: Multidetector volumetric CT imaging of the chest was obtained after the administration of 50 mL of Omnipaque 350 intravenous contrast without immediate adverse reactions. Axial MIP volume rendering provided. Sagittal and coronal reformatted images were obtained. This CT examination was performed using dose optimization techniques as appropriate, variously including the following: *Automated exposure control *Adjustment of mA and/or kV according to patient size (this includes techniques or standardized protocols for targeted exams where dose is matched to indication/reason for exam; i.e. 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 LUNGS: The lungs are well-expanded and clear of acute pneumonic process. No pulmonary nodules, mass or consolidation seen. There is bilateral lower lobe and right middle lobe bronchiectasis with debris noted. Mild atelectatic changes are seen medial segment right middle lobe. MEDIASTINUM: The thyroid lobes are symmetrical and normal. The central trachea and bronchi are widely patent. The heart size and great vessels are normal caliber. No abnormal size mediastinal or hilar lymphadenopathy seen. There is no pericardial effusion. PLEURA: There is no pleural effusion. No pleural mass or thickening. AXILLA: No lymphadenopathy. UPPER ABDOMEN: Unremarkable OSSEOUS STRUCTURES: No lytic or sclerotic process seen. CT/CT chest w IV con IMPRESSION: 1. Bilateral lower lobe and right middle lobe bronchiectasis with debris. 2. Mild atelectatic changes medial segment right middle lobe. Fleischner guidelines were followed.
[2023-06-20 19:31] VITALS: BP 118/78; PULSE 90; RESP 20; TEMP 36.9; O2SAT 92; BMI 20.9
--- NOTE | 2023-06-20 19:32 | PM.IMHP ---
History of Present Illness Date of Service: 06/20/23 Chief Complaint: Hemoptysis This is 23-year-old male with pertinent history of SVT on verapamil and bisoprolol, mood disorder who presents to the emergency department after coughing blood. Patient states it happened around 12:00. He was seen in the ER earlier in the day and discharged home as it was thought to be pseudo hemoptysis from nosebleed. Patient had further episodes of coughing up blood after he went home and return to the ER. Denies similar history in the past. Denies recent travels, exposure to TB. No history of cancer, HIV, fever, chills, trauma. States he has a chronic cough. No weight loss. He denies chest discomfort, shortness of breath, palpitations, abdominal pain, changes in urinary or bowel habits. Denies smoking or chewing tobacco. In the emergency department, patient had one more episode of hemoptysis and hospital medicine team was consulted for admission. Review of Systems Constitutional: Constitutional: Reports no additional constitutional complaints Cardiovascular: Cardiovascular: Reports no additional cardiovascular complaints Respiratory: Respiratory: Reports cough and Reports hemoptysis Gastrointestinal: Gastrointestinal: Reports no additional gastrointestinal complaints Genitourinary: Genitourinary: Reports no additional male genitourinary complaints [facility] Medical History HTN (hypertension) RBBB SVT (supraventricular tachycardia) Tetralogy of Fallot Pertinent family history: No family history of early CAD Social History Alcohol intake: never Patient Tobacco Use Status: Never used Tobacco Substance Use Type: Marijuana Advance Directives: No Advance Directives Information Provided: Yes Meds Allergies Allergy/AdvReac Type Severity Reaction Status Date / Time citalopram [CITALOPRAM] Allergy Severe THROAT Verified 06/20/23 19:34 SWELLING, ANXIETY diphenhydramine Allergy Difficulty Verified 06/20/23 19:34 [From Benadryl] Breathing Active Medications: Current Medications Sodium Chloride (Ns) 1,000 mls @ 999 mls/hr IV .Q1H1M ONE Stop: 06/20/23 20:29 Pharmacy Consult (Consult Rx Perform Med Rec) 1 each MISCELLANE ONCE PRN PRN Reason: Consult order Home Medications Medication Instructions Recorded Confirmed Last Taken Type bisoprolol fumarate 5 mg tablet 5 mg PO DAILY 06/20/23 06/20/23 06/18/23 History multivitamin with minerals 1 tab PO DAILY 06/20/23 06/20/23 Unknown History Physical Exam Vital Signs and Narrative: Vital Signs: Young male lying in bed in no distress Neck supple, no JVD Regular rate and rhythm, S1-S2 heard Regular breath sounds bilaterally, no wheezing or crackles appreciated Abdomen soft nontender, no guarding, no rigidity Patient is awake, alert and oriented to self, place, time and person ; no focal motor deficit Psych: Normal mood No pedal edema Assessment and Plan (1) Hemoptysis: Status: Acute Plan This is 23-year-old male with pertinent history of SVT on verapamil and bisoprolol, mood disorder who presents to the emergency department after coughing blood. #. Non life-threatening hemoptysis. Will admit patient with cardiac monitoring. Obtaining CT chest with IV contrast and consulting pulm, appreciate assistance. Close monitoring of hemodynamics. Will keep patient NPO #. SVT on verapamil and bisoprolol #. Mood disorder on venlafaxine Med rec pending DVT prophylaxis: None. Patient is ambulatory Full code NPO Time Spent With Patient Time: Total time managing care of this patient today ____ minutes. Quality Stroke Does the patient have a stroke diagnosis?: No VTE Prior VTE?: No VTE Risk Level:: Medical - low VTE Device Contraindication: Treatment Not Indicated VTE Drug Contraindication: Treatment Not Indicated
[2023-06-20] MEDS: 0.9 % Sodium Chloride 1,000 ML 999 ML IV (19:46)
--- NOTE | 2023-06-20 20:16 | PHA.MEDREC ---
Pharmacy Consult ? Medication Reconciliation Pharmacy has completed the medication reconciliation. Pt knows meds without leading and was able to give me his list of medication. States that even though he filled the venlafaxine he never started it so it shows in claim history but was left off of home med list.
[2023-06-20] MEDS: iohexoL 350 MG/ML 100 ML INFUS..BTL IV (20:30)
[2023-06-20 20:31] VITALS: BP 110/82; PULSE 95; RESP 21; TEMP 36.8; O2SAT 96
--- NOTE | 2023-06-20 21:16 | ED.GENADULT ---
HPI - General Adult General Chief complaint: General Medical Stated complaint: SPITTING UP BLOOD FEELS LIGHTHEADED Time Seen by Provider: 06/20/23 19:09 Source: patient and EMS Mode of arrival: EMS Limitations: no limitations History of Present Illness HPI narrative: 23-year-old male with history of tetralogy of Fallot presents with hemoptysis. This is 2nd visit within the last 12 hours. Patient's previous episode was self-limiting. He then had a another episode that was significantly worse. Denies fever, chills, mucus production, night sweats, weight loss. He is not on any blood thinning medications. He has never had this before. He has no risk factors for tuberculosis. He has had no night sweats, weight loss. He has had no recent incarcerations. No 3rd world travel. He denies any trauma. Patient describes his symptoms as severe. Unclear what makes the symptoms worse. He notices that when he is having palpitations he seems to have the hemoptysis. Related Data Home Medications Medication Instructions Recorded Confirmed bisoprolol fumarate 5 mg tablet 5 mg PO DAILY 06/20/23 06/20/23 multivitamin with minerals 1 tab PO DAILY 06/20/23 06/20/23 Previous Rx's Medication Instructions Recorded verapamil 240 mg 24 hr 240 mg PO DAILY #30 caps 09/26/21 capsule,extended release Allergies Allergy/AdvReac Type Severity Reaction Status Date / Time citalopram [CITALOPRAM] Allergy Severe THROAT Verified 06/20/23 19:34 SWELLING, ANXIETY diphenhydramine Allergy Difficulty Verified 06/20/23 19:34 [From Benadryl] Breathing Review of Systems Review of Systems: CONSTITUTIONAL: Denies weight loss, fever and chills. HEENT: Denies changes in vision and hearing. RESPIRATORY: Denies SOB + cough. CV: Denies palpitations no CP. GI: Denies abdominal pain, nausea, vomiting and diarrhea. : Denies dysuria and urinary frequency. MSK: Denies myalgia and joint pain. SKIN: Denies rash and pruritus. NEUROLOGICAL: Denies headache and syncope. PSYCHIATRIC: Denies recent changes in mood. Denies anxiety and depression. All other ROS are negative unless in HPI PMFSH Past Medical History Medical History HTN (hypertension) RBBB SVT (supraventricular tachycardia) Tetralogy of Fallot Social History Social History Alcohol intake: never Patient Tobacco Use Status: Never used Tobacco Smoked in Last 30 Days: No Use of substances other than those prescribed or required for medical reasons: No Substance Use Type: Marijuana Advance Directives: No Advance Directives Information Provided: Yes service: No Physical Exam ED Vital Signs: Vital Signs - 24 hr 06/20/23 19:31 Temperature 98.5 F Pulse Rate 90 Respiratory Rate 20 Blood Pressure 118/78 Pulse Oximetry 92 Oxygen Delivery Method Room Air BMI result Body Mass Index 20.9 GEN: Well developed, no acute distress, alert, oriented HEENT: Normocephalic, atraumatic, normal external ears, nose appears normal, no oropharyngeal edema or exudates Eyes: Normal to appearance Neck: Supple, no lymphadenopathy Respiratory: Talks in complete sentences, no respiratory distress, clear to auscultation bilaterally Cardiovascular: Regular rate and rhythm, no murmurs rubs or gallops Abdomen: Soft, nontender, nondistended, no guarding, no rebound Back: No CVA tenderness Extremities: No clubbing cyanosis or edema Neurologic: No focal neurologic deficits, cranial nerves 2-12 intact, strength is 5/5 bilaterally Skin: No rash Course Course Course Narrative: Patient presents for hemoptysis for the 2nd time. His examination is benign. I evaluated him previously, he had a self-limiting episode which that appeared to be most likely to be postnasal bleeding. However, this episode appears to be kev hemoptysis. His initial workup did not show significantly elevated white blood cell, anemia, chest x-ray did not show any cavitations lesions, pneumonia. Patient will be admitted to the hospital for hemoptysis at this time. He may warrant a Pulmonary consultation. Medications Administered Discontinued Medications Generic Name Dose Route Start Last Admin Trade Name Freq PRN Reason Stop Dose Admin Sodium Chloride 1,000 mls @ 999 mls/hr 06/20/23 19:29 06/20/23 19:46 Ns IV 06/20/23 20:29 999 mls/hr .Q1H1M ONE Administration Iohexol 100 ml 06/20/23 20:29 06/20/23 20:30 Iohexol 350 Mg/Ml 100 Ml Infus..Btl IV 06/20/23 20:30 65 ml ONCE ONE Administration Medical Decision Making Medical Decision Making [facility] Narrative: Patient presents for hemoptysis. Differential diagnosis includes capillary leak, AVM, bronchitis, pneumonia, PE, TB. Etiology is unclear at this time. Previous workup was unremarkable. Plan: Admission to the hospital, NPO. Differential Diagnosis Differential Diagnoses: The differential diagnosis associated with the presentation includes (See above) Admission/Observation Consideration of admission/observation: Escalation of care including admission/observation considered Consult Healthcare Provider Management of the patient was discussed with: Hospitalist Lab Data [facility] Lab Attestation statement: I reviewed the patient's lab results. (Reviewed labs from previous visit) Independent Interpretation I performed an independent interpretation of an: EKG (Normal sinus rhythm right bundle-branch block, no acute ST elevations depressions, similar to previous EKG.) and Plain X-Ray (Chest: No acute cardiopulmonary disease) Independent Historian Clinical information obtained from an independent historian. History obtained from or confirmed by: EMS Prescription Management I considered prescription management with: Antibiotic Discharge Plan Discharge Clinical Impression: Hemoptysis Patient Disposition: Admitted As Inpatient
--- NOTE | 2023-06-20 21:16 | MHC.CM.PN ---
ABIMBOLA 06/20. Met with patient assigned to observation with bed assignment pending. A&Ox4. Very pleasant and cooperative. Lives with significant other and 2 children. Uses no DME/services. Unvaccinated for Covid 19. Has PCP at [facility] in [facility], but cannot remember his name. Declines HCP at this time. THRIVE assessment negative. Pt unemployed. Pt receives SSDI. D/C plan: Home without services. Family will transport home. CM will follow for discharge planning.
--- NOTE | 2023-06-20 21:19 | PC.NURSE ---
patient in bed with eyes open eating patient was seen by the doctor stated that he was hungry and was not in pain no more patient was encouraged to keep the IV had to be reinforced patient will continue to be monitored until released patient in the process of being discharged patient is aware
--- NOTE | 2023-06-20 21:24 | PC.NURSE ---
patient in the process of being admitted patient is aware report is being given to the receiving nurse
--- NOTE | 2023-06-20 21:31 | PC.NURSE ---
report was given to the receiving nurse Randy patient in the process of being transferred
[2023-06-20] MEDS: levoFLOXacin/D5W 750 MG/150 ML PIGGYBACK 100 MG IV (22:45)
[2023-06-20 22:54] VITALS: BP 118/61; PULSE 55; RESP 16; TEMP 36.9; O2SAT 95
[2023-06-20 23:48] LABS: Influenza A PCR NEGATIVE (Negative); Influenza B PCR NEGATIVE (Negative); Resp Syncy Virus RNA Qual PCR NEGATIVE (Negative); SARS COV2 PCR INHOUSE NEGATIVE (Negative)
[2023-06-21] MEDS: 0.9 % Sodium Chloride Flush 3 ML SYRINGE IVFLUSH ×3 (00:31→14:17)
[2023-06-21 04:00] VITALS: BP 110/53; PULSE 54; RESP 14; TEMP 36.6; O2SAT 96
[2023-06-21 07:07] LABS: MANUAL DIFF FLAG NO
[2023-06-21 07:11] LABS: Basophils Percent Auto 0.8 % (0-2); Eosinophils Absolute Auto 0.2 X10*3/uL (0.0-0.4); Eosinophils Percent Auto 4.9 % (0-4); Hematocrit 42.9 % (42.0-52.0); Hemoglobin 13.9 g/dl (14.0-18.0); Imm Gran Abs Auto 0.01 X10*3/uL (0.00-0.03); Imm Gran Pct Auto 0.2 % (0.0-0.4); Lymphocytes Percent Auto 21.9 % (20-40); Mean Corpuscular HGB Conc 32.4 g/dl (31.0-36.0); Mean Corpuscular Hemoglobin 28.4 pg (27.0-33.0); Mean Corpuscular Volume 87.6 fL (80.0-98.0); Mean Platelet Volume 10.9 fL (9.4-12.4); Monocytes Absolute Auto 0.5 X10*3/uL (0.1-1.2); Monocytes Percent Auto 9.5 % (2-11); Neutrophils Percent Auto 62.7 % (45-73); Platelet Count 203 X10*3/uL (160-400); Red Cell Distribution Width 12.2 % (11.0-16.0); White Blood Count 4.7 X10*3/uL (4.8-10.8)
[2023-06-21 07:15] VITALS: BP 125/66; PULSE 64; RESP 20; TEMP 36.9; O2SAT 97
[2023-06-21 07:28] LABS: Anion Gap 12 (12-20); Blood Urea Nitrogen 13 mg/dL (9-16); Calcium 9.4 mg/dL (8.4-10.2); Carbon Dioxide 23 mmol/L (22-29); Chloride 107 mmol/L (96-108); Creatinine Clr Calc Pharmacy 126.3; Estimated Glomerular Filt Rate > 60; Glucose Random 82 mg/dL (60-115); Potassium 3.8 mmol/L (3.3-5.1); Sodium 138 mmol/L (135-145)
[2023-06-21] MEDS: Bisoprolol Fumarate 5 MG TABLET PO (09:40)
[2023-06-21] MEDS: guaiFENesin DM 200/20/10 ML 10 ML SYRUP PO ×2 (09:40→14:17)
[2023-06-21 10:19] LABS: MRSA Nasal PCR NEGATIVE (Negative); SA Nasal PCR NEGATIVE (Negative)
[2023-06-21 11:16] VITALS: BP 120/66; PULSE 81; RESP 20; TEMP 36.6; O2SAT 94
--- NOTE | 2023-06-21 11:56 | MHC.CM.PN ---
EMR REVIEWED, PT W/HEMOPTYSIS AND SVT'S, PER HOSPITALIST NO PLAN FOR D/C TODAY, ANTIC PT WILL D/C HOME TOMORROW HOME NO SERVICES W/FAMILY FOR TRANSPORT.
--- NOTE | 2023-06-21 12:16 | HO.PM.IMPN ---
Subjective Subjective Date of Service: 06/21/23 Interval History: Being followed for hemoptysis, denies recurrent episode of hemoptysis since admission, continue to have cough, as per patient he has chronic cough and nasal congestion, had 1 episode of pneumonia in 2018, denies fever, no chills, denies smoking, denies illicit drug use, no toxic exposure no family history of cystic disease, denies nausea vomiting, no abdominal pain, no diarrhea, no urinary symptoms all other system reviewed and negative. Review of Systems All other review of system obtained and negative Physical Exam Vital Signs: Vital Signs: Last Vital Signs Temp 97.9 F 06/21/23 11:16 Pulse 81 06/21/23 11:16 Resp 20 06/21/23 11:16 BP 120/66 06/21/23 11:16 Pulse Ox 94 06/21/23 11:16 O2 Del Method Room Air 06/21/23 11:16 BMI result Body Mass Index 20.9 Const: Other: General resting comfortably in no acute distress. Neck supple no JVD. CVS regular rate rhythm, Respiratory lungs clear to auscultation, no respiratory distress, no wheeze, no rhonchi. Gastrointestinal abdomen soft, nontender, bowel sounds audible, no guarding , no rigidity. Extremities no edema. Neuro nonfocal speech clear. Skin no rash Psych appropriate affect Objective Data Active Medications Acetaminophen (Acetaminophen 325 Mg Tablet) 650 mg PO Q6H PRN PRN Reason: Pain, Mild (Pain Scale 1-3) Bisoprolol Fumarate (Bisoprolol Fumarate 5 Mg Tablet) 5 mg PO DAILY [facility] Last Admin: 06/21/23 09:40 Dose: 5 mg Documented By: ROSHNI Guaifenesin/Dextromethorphan (Guaifenesin Dm 200/20/10 Ml 10 Ml Syrup) 10 ml PO TID [facility] Last Admin: 06/21/23 09:40 Dose: 10 ml Documented By: ROSHNI Levofloxacin (Levaquin) 750 mg in 150 mls @ 100 mls/hr IV Q24H [facility] Last Infusion: 06/21/23 00:31 Dose: 0 mls/hr Documented By: SHERRI Melatonin (Melatonin 3 Mg Tablet) 6 mg PO BEDTIME PRN PRN Reason: Insomnia Ondansetron HCl (Ondansetron Hcl 4 Mg/2 Ml Vial) 4 mg IVPUSH Q8H PRN PRN Reason: Nausea and Vomiting Pharmacy Consult (Consult Rx Perform Med Rec) 1 each MISCELLANE ONCE PRN PRN Reason: Consult order Sodium Chloride (0.9 % Sodium Chloride Flush 3 Ml Syringe) 3 ml IVFLUSH QSHIFT [facility] Last Admin: 06/21/23 09:41 Dose: 3 ml Documented By: ROSHNI Labs 06/21/23 06:53 06/21/23 06:53 Labs: Laboratory Results - last 24 hr 06/20/23 06/20/23 06/21/23 23:00 23:00 06:53 MCV 87.6 MCH 28.4 MCHC 32.4 RDW 12.2 Plt Count 203 MPV 10.9 Immature Gran % (Auto) 0.2 Neut % (Auto) 62.7 Lymph % (Auto) 21.9 [place] % (Auto) 9.5 Eos % (Auto) 4.9 H Baso % (Auto) 0.8 Lymph # (Auto) 1.0 L [place] # (Auto) 0.5 Eos # (Auto) 0.2 Baso # (Auto) 0.0 Abs Immat Gran (auto) 0.01 Absolute Neuts (auto) 3.0 Absolute Nucleated RBC 0.000 Nucleated RBC % (auto) 0.0 Anion Gap Estim Creat Clear Calc Estimated GFR Random Glucose Calcium Nasal Screen MRSA (PCR) NEGATIVE Nasal S. aureus Screen NEGATIVE Nasal MRSA/S.aureus Interp SEE NOTE Influenza Type A (PCR) NEGATIVE Influenza Type B (PCR) NEGATIVE RSV RNA Qual (PCR) NEGATIVE SARS-CoV-2 RNA (RT-PCR) NEGATIVE 06/21/23 06:53 MCV MCH MCHC RDW Plt Count MPV Immature Gran % (Auto) Neut % (Auto) Lymph % (Auto) [place] % (Auto) Eos % (Auto) Baso % (Auto) Lymph # (Auto) [place] # (Auto) Eos # (Auto) Baso # (Auto) Abs Immat Gran (auto) Absolute Neuts (auto) Absolute Nucleated RBC Nucleated RBC % (auto) Anion Gap 12 Estim Creat Clear Calc 126.3 Estimated GFR > 60 Random Glucose 82 Calcium 9.4 Nasal Screen MRSA (PCR) Nasal S. aureus Screen Nasal MRSA/S.aureus Interp Influenza Type A (PCR) Influenza Type B (PCR) RSV RNA Qual (PCR) SARS-CoV-2 RNA (RT-PCR) Assessment and Plan (1) Hemoptysis: Status: Acute Plan 23-year-old male with pertinent history of SVT on verapamil and bisoprolol, mood disorder who presents to the emergency department after coughing blood. #.? Hemoptysis No recurrent episodes since admission, CT chest showed Bilateral lower lobe and right middle lobe bronchiectasis with debris,? Mild atelectatic changes medial segment right middle lobe. Patient provide history of chronic cough and sinus congestion stable hematocrit Continue IV Levaquin, add scheduled and as needed cough syrup Case discussed with hole digger Dr. 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 SVT on verapamil and bisoprolol, soft blood pressures will resume bisoprolol and follow BP. #.? Mood disorder on venlafaxine DVT prophylaxis:? Recommend early ambulation Full code Admitted under observation Time Spent With Patient Time: Total time managing care of this patient today ____ minutes. Quality Stroke Does the patient have a stroke diagnosis?: No VTE Prior VTE?: No VTE Risk Level:: Medical - low VTE Device Contraindication: Treatment Not Indicated VTE Drug Contraindication: Treatment Not Indicated
[2023-06-21] MEDS: VerapamiL HCL SR 180 MG TABLET.ER PO (14:17)
--- NOTE | 2023-06-21 15:49 | PM.CNPUL ---
History of Present Illness History of Present Illness Consult date: 06/21/23 Requesting physician: Varsha Rodriguez Chief complaint: coughing blood Narrative: 23-year-old gentleman with underlying history of childhood repair of Tetralogy of Fallot admitted on 06/20/2023 with several episodes of hemoptysis. Patient states that on the day of admission he developed cough, initially with urine sputum, then grossly bloody. Patient has been evaluated in the emergency room with CT chest that showed bibasilar bronchiectasis with repeat of min hemoptysis and admitted to telemetry rossi. No repeat of hemoptysis overnight. Patient treated with empiric Levaquin. Patient states that he has family history of unspecified lung disease in his uncle and nephew. He denies family history of cystic fibrosis. Review of Systems Constitutional: Constitutional: Denies daytime sleepiness, Denies excessive sweating, Denies fatigue, Denies fever(s), Denies lethargy, Denies malaise, Denies night sweats, Denies snoring and Denies weight loss Eyes: Eyes: Denies blurry vision and Denies itchy eyes ENT: Denies nasal congestion, Denies post nasal drip, Denies sinus pain, Denies sinus pressure and Denies other ( Thrush) Cardiovascular: Cardiovascular: Denies chest pain, Denies pedal edema, Denies dyspnea, Denies orthopnea and Denies paroxysmal nocturnal dyspnea Respiratory: Respiratory: Reports cough, Reports hemoptysis, Reports excessive phlegm production, Denies dyspnea, Denies snoring and Denies wheezing Gastrointestinal: Gastrointestinal: Denies abdominal pain and Denies heartburn Musculoskeletal: Musculoskeletal: Denies myalgias, Denies arthralgias and Denies joint swelling Integumentary/Breasts: Skin/Breast: Denies rash Neurologic: Denies memory loss and Denies seizure-like activity Psychiatric: Psychiatric: Denies abnormal sleep pattern, Denies anxiety and Denies memory loss Endocrine: Endocrine: Denies excessive sweating, Denies fatigue and Denies heat intolerance Hematologic/Lymphatic: Hematologic/Lymphatic: Denies easy bruising Allergic/Immunologic: Allergic/Immunologic: Denies itchy eyes, Denies seasonal rhinorrhea and Denies wheezing PMFSH Past Medical History Medical History HTN (hypertension) RBBB SVT (supraventricular tachycardia) Tetralogy of Fallot Social History Social History Alcohol intake: never Patient Tobacco Use Status: Never used Tobacco Substance Use Type: Marijuana service: No Meds Allergies Allergy/AdvReac Type Severity Reaction Status Date / Time citalopram [CITALOPRAM] Allergy Severe THROAT Verified 06/20/23 19:34 SWELLING, ANXIETY diphenhydramine Allergy Difficulty Verified 06/20/23 19:34 [From Benadryl] Breathing Active Medications: Current Medications Acetaminophen (Acetaminophen 325 Mg Tablet) 650 mg PO Q6H PRN PRN Reason: Pain, Mild (Pain Scale 1-3) Bisoprolol Fumarate (Bisoprolol Fumarate 5 Mg Tablet) 5 mg PO DAILY [facility] Last Admin: 06/21/23 09:40 Dose: 5 mg Guaifenesin/Dextromethorphan (Guaifenesin Dm 200/20/10 Ml 10 Ml Syrup) 10 ml PO TID [facility] Last Admin: 06/21/23 14:17 Dose: 10 ml Levofloxacin (Levaquin) 750 mg in 150 mls @ 100 mls/hr IV Q24H [facility] Last Infusion: 06/21/23 00:31 Dose: Infused Melatonin (Melatonin 3 Mg Tablet) 6 mg PO BEDTIME PRN PRN Reason: Insomnia Ondansetron HCl (Ondansetron Hcl 4 Mg/2 Ml Vial) 4 mg IVPUSH Q8H PRN PRN Reason: Nausea and Vomiting Pharmacy Consult (Consult Rx Perform Med Rec) 1 each MISCELLANE ONCE PRN PRN Reason: Consult order Sodium Chloride (0.9 % Sodium Chloride Flush 3 Ml Syringe) 3 ml IVFLUSH QSHIFT [facility] Last Admin: 06/21/23 14:17 Dose: 3 ml Verapamil HCl (Verapamil Hcl Sr 180 Mg Tablet.Er) 180 mg PO DAILY [facility]; Protocol Last Admin: 06/21/23 14:17 Dose: 180 mg Home Medications Medication Instructions Recorded Confirmed Last Taken Type bisoprolol fumarate 5 mg tablet 5 mg PO DAILY 06/20/23 06/20/23 06/18/23 History multivitamin with minerals 1 tab PO DAILY 06/20/23 06/20/23 Unknown History Physical Exam Vital Signs: Vital Signs: Last Vital Signs Temp 97.9 F 06/21/23 11:16 Pulse 81 06/21/23 11:16 Resp 20 06/21/23 11:16 BP 120/66 06/21/23 11:16 Pulse Ox 94 06/21/23 11:16 O2 Del Method Room Air 06/21/23 11:16 BMI result Body Mass Index 20.9 Const: General: no acute distress and alert Nutritional Appearance: not obese Orientation/consciousness: Other orientation findings ( oriented) HEENT: Head: Yes atraumatic Eyes: General: appearance normal, both eyes and all related structures Sclerae: sclerae normal EOM: EOMs intact bilaterally Neck: Neck: Yes supple Lymphatic: no lymphadenopathy noted Resp: Effort & Inspection: normal respiratory effort and no use of accessory muscles Auscultation: clear to auscultation bilaterally Cardio: Rate: regular rate Rhythm: regular rhythm Heart sounds: no gallops, no murmurs and no rubs Skin: General skin exam: other ( warm) Extrem: General: No clubbing, No cyanosis and No edema Results Laboratory Findings 06/21/23 06:53 06/21/23 06:53 Abnormal lab findings: Abnormal Labs 06/21/23 06:53 WBC 4.7 L Hgb 13.9 L Eos % (Auto) 4.9 H Lymph # (Auto) 1.0 L Assessment and Plan (1) Hemoptysis: Status: Acute (2) Bronchiectasis: Status: Acute Plan Impression: 23-year-old gentleman well self-limited hemoptysis on the background of new diagnosis of bronchiectasis with acute exacerbation. No repeat of hemoptysis overnight. Now on empiric Levaquin. Possible underlying primary ciliary dyskinesia versus cystic fibrosis versus immune deficiency. Immunoglobulin studies are ordered. Recommendations: Agree with current empiric treatment with Levaquin. Monitor for next 24 hours for hemoptysis requirements. Is no recurrence and improvement in sputum, can finish outpatient regimen of 14 days of Levaquin and continue with outpatient pulmonary follow-up for further testing for likely primary ciliary dyskinesia. Time Spent With Patient Time: Total time managing care of this patient today ____ minutes. Procedures Date of Service Date of Service: 06/21/23
[2023-06-21 15:58] VITALS: BP 136/73; PULSE 93; RESP 16; TEMP 36; O2SAT 96
--- NOTE | 2023-06-23 13:03 | PM.DS ---
DS: Providers Provider Date of Service: 06/21/23 Date of admission: 06/20/23 19:55 Primary care physician: Unknown Physician Consults: 06/20/23 20:16 Consult to Pulmonology Routine Consulting Provider: [facility] Pulmonology Services Reason for consultation: hemoptysis DS: Diagnosis Discharge Diagnosis (1) Hemoptysis: Status: Acute (2) Bronchiectasis: Status: Acute DS: Summary Hospital Course Hospital Course: History of presenting illness Date of Service: 06/20/23 Chief Complaint: Hemoptysis This is 23-year-old male with pertinent history of SVT on verapamil and bisoprolol, mood disorder who presents to the emergency department after coughing blood.? Patient states it happened around 12:00.? He was seen in the ER earlier in the day and discharged home as it was thought to be pseudo hemoptysis from nosebleed.? Patient had further episodes of coughing up blood after he went home and return to the ER.? Denies similar history in the past.? Denies recent travels, exposure to TB.? No history of cancer, HIV, fever, chills, trauma.? States he has a chronic cough.? No weight loss.? He denies chest discomfort, shortness of breath, palpitations, abdominal pain, changes in urinary or bowel habits.? Denies smoking or chewing tobacco. In the emergency department, patient had one more episode of hemoptysis and hospital medicine team was consulted for admission. Hospital course 23-year-old male with pertinent history of SVT on verapamil and bisoprolol, mood disorder who presents to the emergency department after coughing blood. #.? 23-year-old admitted for Hemoptysis, had? No recurrent episodes since admission, CT chest showed?Bilateral lower lobe and right middle lobe bronchiectasis with debris,? Mild atelectatic changes medial segment right middle lobe. ? ? ? Patient provide history of chronic cough and sinus congestion, hematocrit remains stable patient treated with IV Levaquin cough syrup seen by fire sprinkler designer Dr. 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 SVT on verapamil and bisoprolol, soft blood pressures bisoprolol and follow BP. #.? Mood disorder on venlafaxine Time Spent with Patient Time attestation: Total time managing care of this patient today ____ minutes. Discharge coordination time: Greater than 30 minutes Quality: Safe Use of Opioids Does Pt have an Active Cancer Diagnosis on the Problem List?: No Quality: Stroke Does the patient have a stroke diagnosis?: No Physical Exam Vital Signs: Vital Signs: Last Vital Signs Temp 96.8 F 06/21/23 15:58 Pulse 93 06/21/23 15:58 Resp 16 06/21/23 15:58 BP 136/73 06/21/23 15:58 Pulse Ox 96 06/21/23 15:58 O2 Del Method Room Air 06/21/23 15:58 BMI result Body Mass Index 20.9 Const: Other: General resting comfortably in no acute distress.? Neck? supple no JVD. CVS? regular rate rhythm, Respiratory lungs clear to auscultation, no respiratory distress, no wheeze, no rhonchi. Gastrointestinal abdomen soft, nontender, bowel sounds audible, no guarding , no rigidity. Extremities no edema. Neuro nonfocal speech clear. Skin no rash Psych appropriate affect Discharge Plan Discharge Patient Disposition: Left Against Medical Advice Discharge Diagnosis: Hemoptysis Referrals: Physician,Unknown J [Primary Care Provider] - 1 Week Discharge Medications: New levofloxacin 750 mg tablet 750 mg PO DAILY 5 Days Qty: 5 0RF Continued verapamil 240 mg capsule,ext rel. pellets 24 hr 240 mg PO DAILY Qty: 30 0RF bisoprolol fumarate 5 mg tablet 5 mg PO DAILY multivitamin with minerals Tablet 1 tab PO DAILY Discharge Orders: Discharge Order (Routine); Ordered 06/23/23 Ordered By: Karen Chaudhry Care Plan Goals: Return to ED for recurrent episodes of hemoptysis Take Levaquin as directed Health Concerns: Monitor blood pressure continue home medications Plan of Treatment: Outpatient Pulmonary follow-up with Dr. Virgen Assessment: As above Discharge Date/Time: 06/21/23 18:45
[2023-06-24 13:19] LABS: Absolute CD3 Count 483 cells/uL (840-3060); Absolute CD4 Count 360 cells/uL (490-1740); Absolute CD8 Count 133 cells/uL (180-1170); Absolute Lymphocytes 880 cells/uL (850-3900); Percent CD3 Cells 55 % (57-85); Percent CD4 Cells 41 % (30-61); Percent CD8 Cells 15 % (12-42)
[2023-06-25 10:08] LABS: Immunoglobulin G Subclass 1 809 mg/dL (382-929); Immunoglobulin G Subclass 2 436 mg/dL (241-700); Immunoglobulin G Subclass 3 65 mg/dL (22-178); Immunoglobulin G Subclass 4 9.1 mg/dL (4-86); Immunoglobulin G Total 1248 mg/dL (600-1640)
[2023-06-26 11:29] LABS: IgA 254 mg/dL (47-310); IgG 1575 mg/dL (600-1640); IgM 68 mg/dL (50-300)
== END 2023-06-21 18:45 | disposition left against medical advice (07) ==
LOC: HO.ED 19:40 → HO.EDOVER 20:32 → HO.IMC 21:06
PROVIDERS: Internal Medicine Pulmonary Disease; Admitting Provider Student in an Organized Health Care Education/Training Program; Emergency Provider Emergency Medicine; PCP Internal Medicine; Visit Provider Hospitalist
DX: R04.2 Hemoptysis (principal); J47.9 Bronchiectasis, uncomplicated; I47.1 Supraventricular tachycardia; F39 Unspecified mood [affective] disorder; I10 Essential (primary) hypertension; I45.10 Unspecified right bundle-branch block; Z20.822 Contact with and (suspected) exposure to COVID-19
CPT/HCPCS: 0241U; 36415; 71260; 80048; 82784; 85025; 86359; 86360; 87640; 87641; 96361; 96365; 96366; 99222; 99285; J1956; Q9967

== ENCOUNTER → 2023-06-20 19:55 | Outpatient (BNV) | payer OTHER, SELFPAY | PROVIDERS: Admitting Provider Student in an Organized Health Care Education/Training Program; Emergency Provider Emergency Medicine; Visit Provider Student in an Organized Health Care Education/Training Program | DX: R04.2 Hemoptysis (principal); J47.9 Bronchiectasis, uncomplicated | CPT/HCPCS: 99222; 99239 ==

== ENCOUNTER → 2023-06-20 19:55 | Outpatient (BNV) | payer OTHER, SELFPAY | PROVIDERS: Admitting Provider Student in an Organized Health Care Education/Training Program; Emergency Provider Emergency Medicine; Visit Provider Internal Medicine Pulmonary Disease | DX: R04.2 Hemoptysis (principal); J47.9 Bronchiectasis, uncomplicated | CPT/HCPCS: 99232 ==

== ENCOUNTER 2023-09-03 13:13 | Outpatient (AMB) | payer OTHER, SELFPAY ==
[2023-09-03 13:15] VITALS: BP 84/58; PULSE 72; O2SAT 94; BMI 21.8
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
== END 2023-09-03 13:57 | disposition home or self-care (01) ==
PROVIDERS: PCP Internal Medicine; Visit Provider Internal Medicine Pulmonary Disease
DX: J47.9 Bronchiectasis, uncomplicated (principal); R04.2 Hemoptysis
CPT/HCPCS: 99214

== ENCOUNTER → 2023-09-03 13:13 | Outpatient (BNVA) | payer OTHER, SELFPAY | PROVIDERS: PCP Internal Medicine; Visit Provider Internal Medicine Pulmonary Disease | DX: J47.9 Bronchiectasis, uncomplicated (principal); R04.2 Hemoptysis | CPT/HCPCS: 99212 ==

== ENCOUNTER 2023-09-18 19:05 | Emergency (ER) | payer OTHER, SELFPAY ==
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
[2023-09-18 19:16] VITALS: BP 133/70; PULSE 63; RESP 20; TEMP 36.8; O2SAT 95; BMI 20.9
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
--- NOTE | 2023-09-18 19:19 | ECG_ITS ---
Test Reason : CHEST PAIN Blood Pressure : / mmHG Vent. Rate : 057 BPM Atrial Rate : 057 BPM P-R Int : 142 ms QRS Dur : 160 ms QT Int : 460 ms P-R-T Axes : 000 261 052 degrees QTc Int : 447 ms Sinus bradycardia Right bundle branch block Abnormal ECG When compared with ECG of 20-JUN-2023 12:42, No significant changes seen Referred By: Shaye Espino Electronically Signed By:HOUSTON ANDREW MD
[2023-09-18 19:59] LABS: Hematocrit 44.8 % (42.0-52.0); Hemoglobin 15.1 g/dl (14.0-18.0); Mean Corpuscular HGB Conc 33.7 g/dl (31.0-36.0); Mean Corpuscular Hemoglobin 28.8 pg (27.0-33.0); Mean Corpuscular Volume 85.3 fL (80.0-98.0); Mean Platelet Volume 10.6 fL (9.4-12.4); Platelet Count 313 X10*3/uL (160-400); Red Blood Count 5.25 X10*6/uL (4.60-5.80); Red Cell Distribution Width 12.2 % (11.0-16.0)
[2023-09-18 20:13] LABS: COVID-19 Test Negative (Negative); IDNOW Serial# 08D9AD1C
[2023-09-18 20:19] LABS: IDNOW Serial# BCCEAD1C; Influenza A Negative (Negative); Influenza B2 Negative (Negative)
[2023-09-18 20:22] LABS: Alanine Aminotransferase 11 U/L (0-40); Albumin Level 4.9 g/dL (3.5-5.0); Alkaline Phosphatase 95 U/L (39-117); Anion Gap 16 (12-20); Aspartate Amino Transferase 18 U/L (5-37); Bilirubin Direct 0.3 mg/dL (0.0-0.5); Bilirubin Total 0.7 mg/dL (0.0-1.0); Blood Urea Nitrogen 18 mg/dL (9-16); Calcium 10.2 mg/dL (8.4-10.2); Carbon Dioxide 25 mmol/L (22-29); Chloride 106 mmol/L (96-108); Creatinine Clr Calc Pharmacy 119.4; Estimated Glomerular Filt Rate > 60; Glucose Random 94 mg/dL (60-115); Magnesium 2.2 mg/dL (1.6-2.6); Potassium 3.9 mmol/L (3.3-5.1); Sodium 143 mmol/L (135-145); Total Protein 8.2 g/dL (6.5-8.0); WBC ABN SCTR FOR CBC 1; White Blood Count 8.5 X10*3/uL (4.8-10.8)
[2023-09-18 20:32] LABS: Band Neutrophils Percent 1 % (3-5); Eosinophils Absolute Manual 0.1 X10*3/uL (0.0-0.4); Eosinophils Percent Manual 1 % (0-4); Lymphocytes Absolute Manual 1.6 X10*3/uL (1.2-4.9); Lymphocytes Percent Manual 19 % (20-40); Monocytes Absolute Manual 0.7 X10*3/uL (0.1-1.2); Monocytes Percent Manual 8 % (2-11); Neutrophils Absolute Manual 6.1 X10*3/uL (2.0-8.3); Neutrophils Percent Manual 71 % (45-73)
[2023-09-18 20:33] LABS: Platelet Estimate NORMAL (NORMAL); Platelet Morphology Comment NORMAL; RBC Morphology NORMAL
[2023-09-18 20:52] VITALS: BP 113/59; PULSE 62; RESP 15; O2SAT 98
[2023-09-18] MEDS: Meclizine HCl 25 MG TABLET PO (20:56)
--- NOTE | 2023-09-18 21:00 | PC.NURSE ---
pt assessed at d/c, denies any chest pain
== END 2023-09-18 21:05 | disposition home or self-care (01) ==
LOC: HO.ED 21:00
PROVIDERS: Physician Assistant; Emergency Provider Emergency Medicine
DX: R42 Dizziness and giddiness (principal); F41.9 Anxiety disorder, unspecified; R07.89 Other chest pain; R11.2 Nausea with vomiting, unspecified; Z11.52 Encounter for screening for COVID-19; Z20.822 Contact with and (suspected) exposure to COVID-19; Z79.899 Other long term (current) drug therapy
CPT/HCPCS: 71046; 80048; 80076; 83735; 85007; 85025; 85027; 87502; 87635; 93005; 99283; 99285

== ENCOUNTER 2023-09-25 16:42 | Emergency (ER) | payer OTHER, SELFPAY | END 2023-09-25 18:48 | disposition left against medical advice (07) | PROVIDERS: Emergency Provider Emergency Medicine | DX: R06.02 Shortness of breath (principal); R05.9 Cough, unspecified ==

== ENCOUNTER 2023-10-03 01:21 | Emergency (ER) | payer OTHER, SELFPAY ==
--- NOTE | ~2023-10-03 | XR_ITS ---
EXAMINATION: XR CHEST CLINICAL INFORMATION: Recurrent hemoptysis. COMPARISON: 09/18/2023. TECHNIQUE: Frontal view of the chest was obtained. FINDINGS: The cardiomediastinal silhouette is stable. There has been a previous median sternotomy. There is no focal lung consolidation or pleural effusion. The bony structures are unremarkable. There is a stable radiopaque structure overlying the upper mid chest. XR/XR chest 1V IMPRESSION: No evidence for active cardiopulmonary disease.
[2023-10-03 01:35] VITALS: BMI 20.2
[2023-10-03 01:49] VITALS: BP 127/86; PULSE 65; RESP 18; TEMP 36.8; O2SAT 95
--- NOTE | 2023-10-03 01:49 | MHC.EDTECH ---
Patient was brought in by EMS and changed into crisis attire,security at bedside and belonging list completed and placed in the pod locker 12. Vitals were taken and 1-1 sitter at bedside for safety.
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
--- NOTE | 2023-10-03 02:10 | PC.NURSE ---
pt friend on phone, asked pt for permission to speak to friend, pt denied any information to be given to friend.
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
--- NOTE | 2023-10-03 02:21 | PC.NURSE ---
pt girlfriend Jacqueline Hall called in to report that the pt has been cutting himself and states in a couple of days is close by . Jacqueline stated that at 2342 pt called her report that he said I feel numb, is coming, and that the pt is pushing everyone away. At 0038 Jacqueline states he called her and stated that he is cutting himself . Another female called and reported the same accusations Hollie Arboleda and is his art objects salesperson in his chart with a new phone number [phone]. Dr Brown is aware of these conversations and pt has been made a s12 and is going to the pod once med cleared.
--- NOTE | 2023-10-03 03:00 | PC.NURSE ---
pt belongings placed in locker 12, after being checked in decon.
[2023-10-03 03:02] LABS: MANUAL DIFF FLAG NO
[2023-10-03 03:04] LABS: Basophils Absolute Auto 0.1 X10*3/uL (0.0-0.2); Eosinophils Absolute Auto 0.4 X10*3/uL (0.0-0.4); Eosinophils Percent Auto 5.9 % (0-4); Hematocrit 44.1 % (42.0-52.0); Hemoglobin 15.1 g/dl (14.0-18.0); Imm Gran Abs Auto 0.01 X10*3/uL (0.00-0.03); Imm Gran Pct Auto 0.1 % (0.0-0.4); Lymphocytes Absolute Auto 2.2 X10*3/uL (1.2-4.9); Lymphocytes Percent Auto 30.1 % (20-40); Mean Corpuscular HGB Conc 34.2 g/dl (31.0-36.0); Mean Corpuscular Hemoglobin 28.9 pg (27.0-33.0); Mean Corpuscular Volume 84.3 fL (80.0-98.0); Mean Platelet Volume 10.9 fL (9.4-12.4); Monocytes Absolute Auto 0.8 X10*3/uL (0.1-1.2); Monocytes Percent Auto 10.8 % (2-11); Neutrophils Absolute Auto 3.8 x10*3/uL (2.0-8.3); Neutrophils Percent Auto 52.1 % (45-73); Platelet Count 173 X10*3/uL (160-400); Red Blood Count 5.23 X10*6/uL (4.60-5.80); Red Cell Distribution Width 12.5 % (11.0-16.0); White Blood Count 7.3 X10*3/uL (4.8-10.8)
[2023-10-03 03:11] LABS: INTERNATIONAL NORM RATIO 1.1 (0.9-1.1); Prothrombin Time 13.4 SEC (11.1-13.3)
[2023-10-03 03:20] LABS: Alanine Aminotransferase 9 U/L (0-40); Albumin Level 4.3 g/dL (3.5-5.0); Alkaline Phosphatase 86 U/L (39-117); Anion Gap 15 (12-20); Aspartate Amino Transferase 15 U/L (5-37); Bilirubin Direct 0.1 mg/dL (0.0-0.5); Bilirubin Total 0.3 mg/dL (0.0-1.0); Blood Urea Nitrogen 14 mg/dL (9-16); Calcium 9.6 mg/dL (8.4-10.2); Carbon Dioxide 24 mmol/L (22-29); Chloride 107 mmol/L (96-108); Creatinine Clr Calc Pharmacy 119.3; Estimated Glomerular Filt Rate > 60; Glucose Random 93 mg/dL (60-115); Potassium 3.8 mmol/L (3.3-5.1); Sodium 142 mmol/L (135-145); Total Protein 7.3 g/dL (6.5-8.0)
[2023-10-03 03:21] LABS: D Dimer High Sensitivity < 150 NG/ML
[2023-10-03 08:14] VITALS: BP 112/78; PULSE 68; RESP 16; TEMP 36.6; O2SAT 98
[2023-10-03 08:23] LABS: Amphetamine Screen Urine Not Detected (Not Detect); Barbiturates, Urine Not Detected (Not Detect); Benzodiazepines Screen Urine Not Detected (Not Detect); Cannabinoid Screen Urine Not Detected (Not Detect); Cocaine Screen Urine Not Detected (Not Detect); Fentanyl, urine Not Detected (Not Detect); Opiate Screen Urine Not Detected (Not Detect); Phencyclidine Screen Urine Not Detected (Not Detect)
[2023-10-03 08:38] LABS: Appearance Urine Clear; Color Urine Yellow; Glucose Urine UA Negative (Negative); Leukocyte Esterase Urine Negative (Negative); Nitrite Urine Negative (Negative); Specific Gravity - Urine >= 1.030 (1.005-1.025); Urine Blood Negative (Negative); Urine Ketones Negative (Negative); Urine Protein Negative (Neg-Trace)
--- NOTE | 2023-10-03 10:57 | PC.NURSE ---
Codey was OOB this morning and was pleasant and engaged with staff. Codey denies SI/HI/AVH and was talking about going to visit with his children. Codey had no medication scheduled and did not request any. No behavioral concerns. No complaints of pain or discomfort. Appetite good.
--- NOTE | 2023-10-03 11:00 | PC.NURSE ---
Codey endorsing discharge and reporting he feels safe. Belongings returned.
--- NOTE | 2023-10-03 13:54 | MHC.CARE ---
Sent referral to CC and CB.
== END 2023-10-03 11:00 | disposition home or self-care (01) ==
PROVIDERS: Emergency Provider Emergency Medicine
DX: S60.512A Abrasion of left hand, initial encounter (principal); S60.511A Abrasion of right hand, initial encounter; F41.9 Anxiety disorder, unspecified; F33.1 Major depressive disorder, recurrent, moderate; R45.851 Suicidal ideations; R04.2 Hemoptysis; R05.9 Cough, unspecified; W10.9XXA Fall (on) (from) unspecified stairs and steps, initial encounter; Y93.9 Activity, unspecified; Y92.9 Unspecified place or not applicable; Y99.9 Unspecified external cause status; Z79.899 Other long term (current) drug therapy
CPT/HCPCS: 36415; 71045; 80048; 80076; 80307; 81003; 85025; 85379; 85610; 99284; 99285; S9485

== ENCOUNTER → 2023-11-03 13:53 | Outpatient (BNV) | payer OTHER, SELFPAY | PROVIDERS: Emergency Provider Internal Medicine; Visit Provider Internal Medicine | DX: I45.10 Unspecified right bundle-branch block (principal); R94.31 Abnormal electrocardiogram [ECG] [EKG] | CPT/HCPCS: 93010 ==

== ENCOUNTER 2023-11-03 20:17 | Emergency (ER) | payer OTHER, SELFPAY ==
--- NOTE | 2023-11-03 13:53 | ECG_ITS ---
Test Reason : PALPITATIONS Blood Pressure : / mmHG Vent. Rate : 073 BPM Atrial Rate : 073 BPM P-R Int : 138 ms QRS Dur : 152 ms QT Int : 416 ms P-R-T Axes : 119 259 054 degrees QTc Int : 458 ms Suspect limb lead reversal, interpretation assumes no reversal Normal sinus rhythm Right bundle branch block Abnormal ECG When compared with ECG of 18-SEP-2023 19:38, No significant changes seen Referred By: Torres Joel Electronically Signed By:GREY HUMPHREY
[2023-11-03 20:28] VITALS: BP 123/72; PULSE 94; RESP 16; TEMP 36.2; O2SAT 95; BMI 21.3
[2023-11-03 20:46] LABS: Hematocrit 43.7 % (42.0-52.0); Hemoglobin 14.6 g/dl (14.0-18.0); Mean Corpuscular HGB Conc 33.4 g/dl (31.0-36.0); Mean Corpuscular Hemoglobin 29.4 pg (27.0-33.0); Mean Corpuscular Volume 87.9 fL (80.0-98.0); Mean Platelet Volume 11.3 fL (9.4-12.4); Platelet Count 201 X10*3/uL (160-400); Red Blood Count 4.97 X10*6/uL (4.60-5.80); Red Cell Distribution Width 12.3 % (11.0-16.0)
[2023-11-03 20:49] LABS: WBC ABN SCTR FOR CBC 1
[2023-11-03 21:01] LABS: Alanine Aminotransferase 7 U/L (0-40); Albumin Level 4.3 g/dL (3.5-5.0); Alkaline Phosphatase 84 U/L (39-117); Anion Gap 13 (12-20); Aspartate Amino Transferase 15 U/L (5-37); Bilirubin Total 0.3 mg/dL (0.0-1.0); Blood Urea Nitrogen 18 mg/dL (9-16); Calcium 9.4 mg/dL (8.4-10.2); Carbon Dioxide 25 mmol/L (22-29); Chloride 107 mmol/L (96-108); Creatinine Clr Calc Pharmacy 121.8; Estimated Glomerular Filt Rate > 60; Glucose Random 99 mg/dL (60-115); Potassium 3.6 mmol/L (3.3-5.1); Sodium 141 mmol/L (135-145); Total Protein 7.6 g/dL (6.5-8.0)
[2023-11-03 21:10] LABS: Atypical Lymphs Percent Manual 2 % (0-6); Basophils Percent Manual 2 % (0-2); Eosinophils Percent Manual 3 % (0-4); Lymphocytes Percent Manual 20 % (20-40); Monocytes Percent Manual 8 % (2-11); Neutrophils Percent Manual 65 % (45-73); Troponin-I High Sensitivity < 2.7 ng/L (<3.5-35.0)
[2023-11-03 21:12] LABS: Atypical Lymph Absolute Manual 0.2 x10*3/uL; Band Neutrophils Percent 0 % (3-5); Basophils Abs Manual 0.2 X10*3/uL (0.0-0.2); Eosinophils Absolute Manual 0.3 X10*3/uL (0.0-0.4); Lymphocytes Absolute Manual 2.2 X10*3/uL (1.2-4.9); Monocytes Absolute Manual 0.9 X10*3/uL (0.1-1.2); Neutrophils Absolute Manual 7.3 X10*3/uL (2.0-8.3); Platelet Estimate NORMAL (NORMAL); Platelet Morphology Comment NORMAL; RBC Morphology NORMAL; White Blood Count 11.2 X10*3/uL (4.8-10.8)
--- NOTE | 2023-11-03 22:10 | ED.GENADULT ---
HPI - General Adult General Chief complaint: General Medical Stated complaint: RAPID HEART RATE/HOT FLASHES/FATUGUE Time Seen by Provider: 11/03/23 22:04 Source: patient Mode of arrival: ambulatory Limitations: no limitations History of Present Illness HPI narrative: Patient history of tetralogy of Fallot supraventricular tachycardia on verapamil SR 240 mg daily and bisoprolol 5 mg daily, anxiety and depression comes here for episodes of palpitations started earlier today , happened 2 times, on arrival patient's heart rate was 73 beats per minute patient has been having episodes of palpitation almost every other day but lasting only for short time plan for ablation in future but today this happened twice and patient with feeling dizzy heart rate went to 160 no chest pain Related Data Home Medications Medication Instructions Recorded Confirmed budesonide 90 mcg/actuation breath 2 inh inhalation BID 10/03/23 10/03/23 activated powder inhaler (Pulmicort Flexhaler) Allergies Allergy/AdvReac Type Severity Reaction Status Date / Time citalopram [CITALOPRAM] Allergy Severe THROAT Verified 10/03/23 01:46 SWELLING, ANXIETY diphenhydramine Allergy Difficulty Verified 10/03/23 01:46 [From Benadryl] Breathing Review of Systems Review of Systems: Yes all other systems are reviewed and are negative [facility] Past Medical History Medical History Anxiety and depression HTN (hypertension) RBBB Tetralogy of Fallot SVT (supraventricular tachycardia) Social History Social History Alcohol intake: never Patient Tobacco Use Status: Never used Tobacco Substance Use Type: Marijuana Advance Directives: No Advance Directives Information Provided: No service: No Physical Exam ED Vital Signs: Vital Signs - 24 hr 11/03/23 20:28 11/03/23 22:35 Temperature 97.1 F Pulse Rate 94 63 Respiratory Rate 16 17 Blood Pressure 123/72 124/72 Pulse Oximetry 95 96 Oxygen Delivery Method Nasal Cannula Room Air BMI result Body Mass Index 21.3 Appearance: Alert. Oriented X3. No acute distress. Eyes: PERRLA, No Nystagmus ENT: Pharynx normal. Oral Mucosa moist Neck: Normal inspection. Neck supple. CVS: Normal heart rate and rhythm. Pulses normal. Respiratory: No respiratory distress. Equal air entry bilateral, no wheezing/rales/rhonchi Abdomen: Soft and nontender. Bowel sounds are present, no mass palpable, no CVA tenderness Skin: Skin warm and dry. Normal skin color. Normal skin turgor. Extremities: No lower extremity edema. No calf tenderness Neuro: Oriented X 3. No motor deficit. Medical Decision Making Medical Decision Making [facility] Narrative: Patient with SVT with tetralogy of Fallot on verapamil and bisoprolol comes here for recurrent episode of palpitation at this time during stay in the ER does no episode of SVT. Will advise patient to increase dose of bisoprolol to 10 mg daily a plan to see the combined rail operator for ablation as planned decrease caffeine intake Differential Diagnosis Differential Diagnoses: The differential diagnosis associated with the presentation includes As above Admission/Observation Consideration of admission/observation: Escalation of care including admission/observation considered Lab Data [facility] Lab Attestation statement: I reviewed the patient's lab results. 11/03/23 20:35 11/03/23 20:35 Labs: Lab Results 11/03/23 Range/Units 20:35 WBC 11.2 H (4.8-10.8) X10*3/uL RBC 4.97 (4.60-5.80) X10*6/uL Hgb 14.6 (14.0-18.0) g/dl Hct 43.7 (42.0-52.0) % MCV 87.9 (80.0-98.0) fL MCH 29.4 (27.0-33.0) pg MCHC 33.4 (31.0-36.0) g/dl RDW 12.3 (11.0-16.0) % Plt Count 201 (160-400) X10*3/uL MPV 11.3 (9.4-12.4) fL Immature Gran % (Auto) Cancelled Neut % (Auto) Cancelled Lymph % (Auto) Cancelled Grant % (Auto) Cancelled Eos % (Auto) Cancelled Baso % (Auto) Cancelled Lymph # (Auto) Cancelled Grant # (Auto) Cancelled Eos # (Auto) Cancelled Baso # (Auto) Cancelled Abs Immat Gran (auto) Cancelled Absolute Neuts (auto) Cancelled Absolute Nucleated RBC 0.000 (0.0-0.012) X10*3/uL Nucleated RBC % (auto) 0.0 (0.0-0.2) /100WBC Neutrophils % (Manual) 65 (45-73) % Band Neutrophils % 0 L (3-5) % Lymphocytes % (Manual) 20 (20-40) % Atypical Lymphs % (Man) 2 (0-6) % Monocytes % (Manual) 8 (2-11) % Eosinophils % (Manual) 3 (0-4) % Basophils % (Manual) 2 (0-2) % Abs Neuts (Manual) 7.3 (2.0-8.3) X10*3/uL Lymphocytes # (Manual) 2.2 (1.2-4.9) X10*3/uL Atyp Lymphs # (Manual) 0.2 x10*3/uL Monocytes # (Manual) 0.9 (0.1-1.2) X10*3/uL Eosinophils # (Manual) 0.3 (0.0-0.4) X10*3/uL Basophils # (Manual) 0.2 (0.0-0.2) X10*3/uL Platelet Estimate NORMAL (NORMAL) Plt Morphology Comment NORMAL RBC Morphology NORMAL Sodium 141 (135-145) mmol/L Potassium 3.6 (3.3-5.1) mmol/L Chloride 107 (96-108) mmol/L Carbon Dioxide 25 (22-29) mmol/L Anion Gap 13 (12-20) BUN 18 H (9-16) mg/dL Creatinine 0.91 (0.5-1.4) mg/dL Estim Creat Clear Calc 121.8 Estimated GFR > 60 Random Glucose 99 (60-115) mg/dL Calcium 9.4 (8.4-10.2) mg/dL Total Bilirubin 0.3 (0.0-1.0) mg/dL AST 15 (5-37) U/L ALT 7 (0-40) U/L Alkaline Phosphatase 84 (39-117) U/L Troponin I High Sens < 2.7 (<3.5-35.0) ng/L Total Protein 7.6 (6.5-8.0) g/dL Albumin 4.3 (3.5-5.0) g/dL Independent Interpretation I performed an independent interpretation of an: EKG Interpretation: Right bundle-branch block with ventricular rate of 73 beats per minute no acute ST T wave changes no acute ischemic no change from the previous EKGs Discharge Plan Discharge Clinical Impression: Paroxysmal supraventricular tachycardia Patient Disposition: Home, Self-Care Instructions: Supraventricular Tachycardia (ED) Additional Instructions: Continue verapamil SR 240 mg daily Increase the dose of bisoprolol to 10 mg daily Call the combined rail operator and make an appointment for follow-up Prescriptions: No Action Pulmicort Flexhaler 90 mcg/actuation aerosol powdr breath activated 2 inh INHALATION BID Interventions: ED Discharge Assessment Last Done: 11/03/23 23:02 Discharge Date/Time: 11/03/23 23:02
[2023-11-03 22:35] VITALS: BP 124/72; PULSE 63; RESP 17; O2SAT 96
== END 2023-11-03 23:02 | disposition home or self-care (01) ==
PROVIDERS: Emergency Provider Internal Medicine
DX: I47.10 Supraventricular tachycardia, unspecified (principal); R00.2 Palpitations; I10 Essential (primary) hypertension; F41.8 Other specified anxiety disorders; I45.10 Unspecified right bundle-branch block; Q21.3 Tetralogy of Fallot
CPT/HCPCS: 36415; 80053; 84484; 85007; 85027; 93005; 99284

== ENCOUNTER 2024-02-05 21:55 | Emergency (ER) | payer OTHER, SELFPAY ==
--- NOTE | 2024-02-05 | ECG_ITS ---
Test Reason : CHEST PAIN Blood Pressure : / mmHG Vent. Rate : 078 BPM Atrial Rate : 078 BPM P-R Int : 160 ms QRS Dur : 146 ms QT Int : 406 ms P-R-T Axes : 037 241 054 degrees QTc Int : 462 ms Sinus rhythm with Premature supraventricular complexes Right bundle branch block Abnormal ECG When compared with ECG of 03-NOV-2023 20:25, Premature supraventricular complexes are now Present Referred By: Generic ED Physician Electronically Signed By:Paul Ny
--- NOTE | ~2024-02-05 | XR_ITS ---
EXAMINATION: XR CHEST CLINICAL INFORMATION: Chest pain COMPARISON: Previous chest x-ray October 2023 TECHNIQUE: Frontal view of the chest was obtained. FINDINGS: Cardiac silhouette does not appear enlarged. There is a right-sided aortic arch. There are median sternotomy wires. Foreign body projects over upper midline chest unchanged from previous exams. When compared with prior CT this is in the paraspinal soft tissues of the right upper back. Bronchiectasis in the lower lobes similar to previous exams. Lungs are otherwise clear. No pleural effusion or pneumothorax. No acute bone abnormality. XR/XR chest 1V IMPRESSION: No evidence for acute disease in the chest. Stable chest x-ray exam.
[2024-02-05 22:05] VITALS: BP 139/80; PULSE 67; RESP 18; TEMP 36.8; O2SAT 96; BMI 21.5
[2024-02-05 22:59] LABS: Hematocrit 46.8 % (42.0-52.0); Mean Corpuscular HGB Conc 34.2 g/dl (31.0-36.0); Mean Corpuscular Hemoglobin 28.9 pg (27.0-33.0); Mean Corpuscular Volume 84.5 fL (80.0-98.0); Mean Platelet Volume 11.3 fL (9.4-12.4); Platelet Count 195 X10*3/uL (160-400); Red Blood Count 5.54 X10*6/uL (4.60-5.80)
[2024-02-05 23:00] LABS: WBC ABN SCTR FOR CBC 1
[2024-02-05 23:13] LABS: Alanine Aminotransferase 14 U/L (0-40); Albumin Level 4.6 g/dL (3.5-5.0); Alkaline Phosphatase 91 U/L (39-117); Anion Gap 12 (12-20); Aspartate Amino Transferase 18 U/L (5-37); Bilirubin Total 0.4 mg/dL (0.0-1.0); Blood Urea Nitrogen 14 mg/dL (9-16); Calcium 9.8 mg/dL (8.4-10.2); Carbon Dioxide 28 mmol/L (22-29); Chloride 106 mmol/L (96-108); Creatinine Clr Calc Pharmacy 103.3; Estimated Glomerular Filt Rate > 60; Glucose Random 72 mg/dL (60-115); Potassium 4.2 mmol/L (3.3-5.1); Sodium 142 mmol/L (135-145); Total Protein 7.8 g/dL (6.5-8.0)
[2024-02-05 23:23] LABS: Troponin-I High Sensitivity < 2.7 ng/L (<3.5-35.0)
[2024-02-05 23:25] LABS: Basophils Percent Manual 1 % (0-2); Eosinophils Percent Manual 4 % (0-4); Lymphocytes Percent Manual 19 % (20-40); Monocytes Percent Manual 5 % (2-11); Neutrophils Percent Manual 71 % (45-73)
[2024-02-05 23:26] LABS: Giant Platelet PRESENT; Large Platelet PRESENT; Platelet Estimate NORMAL (NORMAL); Platelet Morphology Comment NOTED; RBC Morphology NORMAL
[2024-02-05 23:48] LABS: Band Neutrophils Percent 0 % (3-5); Basophils Abs Manual 0.1 X10*3/uL (0.0-0.2); Eosinophils Absolute Manual 0.3 X10*3/uL (0.0-0.4); Lymphocytes Absolute Manual 1.3 X10*3/uL (1.2-4.9); Monocytes Absolute Manual 0.3 X10*3/uL (0.1-1.2); Neutrophils Absolute Manual 4.9 X10*3/uL (2.0-8.3); White Blood Count 6.9 X10*3/uL (4.8-10.8)
[2024-02-05 23:56] VITALS: BP 122/54; PULSE 50; RESP 18; TEMP 36.6; O2SAT 98
[2024-02-06 00:08] VITALS: BP 123/70; PULSE 48; RESP 19; O2SAT 98
--- NOTE | 2024-02-06 00:39 | ED.CHESTPAIN ---
HPI - Chest Pain General Chief Complaint: Chest Pain Stated Complaint: rapid heart rate, palpitations Time Seen by Provider: 02/05/24 23:56 Source: patient Mode of arrival: ambulatory History of Present Illness HPI narrative: 23-year-old male with history of having TOF repaired, presents with midsternal chest discomfort that he experienced this evening prior to taking his evening medications and states that he was also having what felt like a hard heartbeat as well as a pinching sensation. Patient states that he then took his evening medication and then accidentally consumed half an edible because it look like candy he was unaware what it was. Patient states then he began experiencing the same sensation which prompted him to come into the emergency room. This has not been associated with any nausea/diaphoresis or dizziness. Related Data Home Medications Medication Instructions Recorded Confirmed budesonide 90 mcg/actuation breath 2 inh inhalation BID 10/03/23 10/03/23 activated powder inhaler (Pulmicort Flexhaler) Allergies Allergy/AdvReac Type Severity Reaction Status Date / Time citalopram [CITALOPRAM] Allergy Severe THROAT Verified 02/05/24 22:13 SWELLING, ANXIETY diphenhydramine Allergy Difficulty Verified 02/05/24 22:13 [From Benadryl] Breathing Review of Systems Review of Systems: Pertinent positives and negatives as stated in HPI PMFSH Past Medical History Source: nursing notes reviewed Medical History Anxiety and depression HTN (hypertension) RBBB Tetralogy of Fallot SVT (supraventricular tachycardia) Social History Social History Alcohol intake: never Patient Tobacco Use Status: Never used Tobacco Substance Use Type: Marijuana Advance Directives: No Advance Directives Information Provided: No service: No Physical Exam Vital Signs: Vital Signs: Last Vital Signs Temp 97.8 F 02/05/24 23:56 Pulse 48 L 02/06/24 00:08 Resp 19 02/06/24 00:08 BP 123/70 02/06/24 00:08 Pulse Ox 98 02/06/24 00:08 O2 Del Method Room Air 02/06/24 00:08 BMI result Body Mass Index 21.5 VITAL SIGNS: Reviewed. GENERAL: Well developed, well nourished, in no acute distress. HEAD: Normocephalic/atraumatic EYES: PERRLA, EOMI EARS: Ext canals without abnormality NOSE: Nares patent bilateral OROPHARYNX: no oral lesions noted, posterior pharynx clear NECK: Supple, no adenopathy LUNGS: Normal breath sounds. No adventitious sounds or accessory muscle use. SpO2<98> CARDIOVASCULAR: Regular rate and rhythm without noted murmurs ABDOMEN: Soft, non-tender, non-distended with bowel sounds. MUSCULOSKELETAL: No tenderness, deformities, or effusions noted on gross inspection. EXTREMITIES: No cyanosis, clubbing or edema. SKIN: Inspection of the skin reveals no rashes NEUROLOGIC: Alert and oriented x 4. Strength and sensation to light touch were grossly intact x 4. Medical Decision Making Medical Decision Making [facility] Narrative: 23-year-old male with history and clinical presentation, DDX: Cannabis containing induced palpitations, possible infection/anemia/electrolyte derangement. I reviewed all investigations and hematologic indices are negative for leukocytosis/anemia/thrombocytopenia. Chemistry indices negative for GERARD or electrolyte/liver enzyme derangements and high sensitivity troponin is undetectable, review of EKG does not show any acute changes when compared to prior from 11/2023. On re-evaluation patient is feeling improved and no longer is experiencing the palpitations and pinching chest pain. 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 Differential Diagnosis Differential Diagnoses: The differential diagnosis associated with the presentation includes Please see the discussion above Admission/Observation Consideration of admission/observation: Escalation of care including admission/observation considered Please see the discussion above Lab Data [facility] Lab Attestation statement: I reviewed the patient's lab results. Please see the discussion above 02/05/24 22:52 02/05/24 22:52 Labs: Lab Results 02/05/24 Range/Units 22:52 WBC 6.9 (4.8-10.8) X10*3/uL RBC 5.54 (4.60-5.80) X10*6/uL Hgb 16.0 (14.0-18.0) g/dl Hct 46.8 (42.0-52.0) % MCV 84.5 (80.0-98.0) fL MCH 28.9 (27.0-33.0) pg MCHC 34.2 (31.0-36.0) g/dl RDW 12.0 (11.0-16.0) % Plt Count 195 (160-400) X10*3/uL MPV 11.3 (9.4-12.4) fL Immature Gran % (Auto) Cancelled Neut % (Auto) Cancelled Lymph % (Auto) Cancelled [place] % (Auto) Cancelled Eos % (Auto) Cancelled Baso % (Auto) Cancelled Lymph # (Auto) Cancelled [place] # (Auto) Cancelled Eos # (Auto) Cancelled Baso # (Auto) Cancelled Abs Immat Gran (auto) Cancelled Absolute Neuts (auto) Cancelled Absolute Nucleated RBC 0.000 (0.0-0.012) X10*3/uL Nucleated RBC % (auto) 0.0 (0.0-0.2) /100WBC Neutrophils % (Manual) 71 (45-73) % Band Neutrophils % 0 L (3-5) % Lymphocytes % (Manual) 19 L (20-40) % Monocytes % (Manual) 5 (2-11) % Eosinophils % (Manual) 4 (0-4) % Basophils % (Manual) 1 (0-2) % Abs Neuts (Manual) 4.9 (2.0-8.3) X10*3/uL Lymphocytes # (Manual) 1.3 (1.2-4.9) X10*3/uL Monocytes # (Manual) 0.3 (0.1-1.2) X10*3/uL Eosinophils # (Manual) 0.3 (0.0-0.4) X10*3/uL Basophils # (Manual) 0.1 (0.0-0.2) X10*3/uL Platelet Estimate NORMAL (NORMAL) Large Platelets PRESENT Giant Platelets PRESENT Plt Morphology Comment NOTED RBC Morphology NORMAL Sodium 142 (135-145) mmol/L Potassium 4.2 (3.3-5.1) mmol/L Chloride 106 (96-108) mmol/L Carbon Dioxide 28 (22-29) mmol/L Anion Gap 12 (12-20) BUN 14 (9-16) mg/dL Creatinine 1.08 (0.5-1.4) mg/dL Estim Creat Clear Calc 103.3 Estimated GFR > 60 Random Glucose 72 (60-115) mg/dL Calcium 9.8 (8.4-10.2) mg/dL Total Bilirubin 0.4 (0.0-1.0) mg/dL AST 18 (5-37) U/L ALT 14 (0-40) U/L Alkaline Phosphatase 91 (39-117) U/L Troponin I High Sens < 2.7 (<3.5-35.0) ng/L Total Protein 7.8 (6.5-8.0) g/dL Albumin 4.6 (3.5-5.0) g/dL Independent Interpretation I performed an independent interpretation of an: EKG Interpretation: Sinus rhythm with premature complexes, no STEMI, RBBB at baseline, ID/QTC is within normal limits. Radiology Impression Discussion of test interpretation with radiology: I have reviewed the radiologist's reading. Radiologist Impression: Please see the discussion above External Record Review External record reviewed: Inpatient record, Outpatient record, Prior outpatient labs and Prior outpatient radiology Chronic Conditions History TOF surgery Critical Care Time Critical Care Time Critical Care Time: Yes Total Critical Care Time: 30 Attestation: I personally attest to this time spent taking care of the patient. Discharge Plan Discharge Clinical Impression: Atypical chest pain, Palpitations Patient Disposition: Home, Self-Care Instructions: Heart Palpitations (ED), Chest Pain (ED) Additional Instructions: 1. Please follow-up with your primary care doctor and your welding estimator for further discussion about the placement of an event monitor. Return to the ER for any worsening symptoms. Prescriptions: No Action Pulmicort Flexhaler 90 mcg/actuation aerosol powdr breath activated 2 inh INHALATION BID Referrals: Kermit Lundy MD [Physician] -
== END 2024-02-06 01:12 | disposition home or self-care (01) ==
PROVIDERS: Emergency Provider Student in an Organized Health Care Education/Training Program
DX: R07.89 Other chest pain (principal); R00.2 Palpitations; I10 Essential (primary) hypertension
CPT/HCPCS: 36415; 71045; 80053; 84484; 85007; 85025; 85027; 93005; 99283; 99284

== ENCOUNTER → 2024-02-05 22:03 | Outpatient (BNV) | payer OTHER, SELFPAY | PROVIDERS: Emergency Provider Student in an Organized Health Care Education/Training Program; Visit Provider Internal Medicine Cardiovascular Disease | DX: R07.9 Chest pain, unspecified (principal) | CPT/HCPCS: 93010 ==

== ENCOUNTER 2024-05-27 21:01 | Emergency (ER) | payer OTHER, SELFPAY ==
[2024-05-27 21:05] VITALS: BP 134/79; PULSE 130; RESP 19; TEMP 36.3; O2SAT 95; BMI 22.2
--- NOTE | 2024-05-27 21:10 | ECG_ITS ---
Test Reason : TACHY Blood Pressure : / mmHG Vent. Rate : 131 BPM Atrial Rate : 131 BPM P-R Int : 126 ms QRS Dur : 140 ms QT Int : 332 ms P-R-T Axes : 000 246 056 degrees QTc Int : 490 ms Sinus tachycardia Right bundle branch block Possible Lateral infarct (cited on or before 27-MAY-2024) Abnormal ECG When compared with ECG of 05-FEB-2024 22:03, Premature supraventricular complexes are no longer Present Vent. rate has increased BY 53 BPM Serial changes of Lateral infarct Present Referred By: Generic ED Physician Electronically Signed By:JOYCE HUERTA MD
[2024-05-27 21:27] VITALS: BP 113/82; PULSE 140; RESP 14; TEMP 36.7; O2SAT 96
--- NOTE | 2024-05-27 21:28 | MHC.EDTECH ---
pt changed over at this time, pt changed into a hospital gown and placed on electronic device monitor
[2024-05-27 21:35] LABS: MANUAL DIFF FLAG NO
[2024-05-27] MEDS: Metoprolol Tartrate 5 MG/5 ML VIAL IVPUSH (21:38)
[2024-05-27 21:49] LABS: Basophils Absolute Auto 0.1 X10*3/uL (0.0-0.2); Basophils Percent Auto 0.9 % (0-2); Eosinophils Absolute Auto 0.4 X10*3/uL (0.0-0.4); Eosinophils Percent Auto 3.7 % (0-4); Hematocrit 47.3 % (42.0-52.0); Hemoglobin 16.3 g/dl (14.0-18.0); Imm Gran Abs Auto 0.02 X10*3/uL (0.00-0.03); Imm Gran Pct Auto 0.2 % (0.0-0.4); Lymphocytes Absolute Auto 2.1 X10*3/uL (1.2-4.9); Lymphocytes Percent Auto 22.7 % (20-40); Mean Corpuscular HGB Conc 34.5 g/dl (31.0-36.0); Mean Corpuscular Hemoglobin 29.1 pg (27.0-33.0); Mean Corpuscular Volume 84.5 fL (80.0-98.0); Mean Platelet Volume 11.6 fL (9.4-12.4); Monocytes Absolute Auto 0.8 X10*3/uL (0.1-1.2); Monocytes Percent Auto 8.5 % (2-11); Platelet Count 261 X10*3/uL (160-400); Red Cell Distribution Width 12.2 % (11.0-16.0); White Blood Count 9.4 X10*3/uL (4.8-10.8)
[2024-05-27 21:52] LABS: Alanine Aminotransferase 10 U/L (0-40); Albumin Level 4.7 g/dL (3.5-5.0); Alkaline Phosphatase 102 U/L (39-117); Anion Gap 11 (12-20); Aspartate Amino Transferase 18 U/L (5-37); Bilirubin Direct 0.2 mg/dL (0.0-0.5); Bilirubin Total 0.4 mg/dL (0.0-1.0); Blood Urea Nitrogen 14 mg/dL (9-16); Calcium 10.1 mg/dL (8.4-10.2); Carbon Dioxide 25 mmol/L (22-29); Chloride 110 mmol/L (96-108); Creatinine Clr Calc Pharmacy 131.3; Estimated Glomerular Filt Rate > 60; Glucose Random 91 mg/dL (60-115); Lipase 33 U/L (8-78); Potassium 4.3 mmol/L (3.3-5.1); Sodium 142 mmol/L (135-145)
[2024-05-27 22:00] LABS: Troponin-I High Sensitivity < 2.7 ng/L (<3.5-35.0)
--- NOTE | 2024-05-27 22:30 | ED.ARRPALP ---
HPI - Arrhythmia/Palpitations General Chief Complaint: Arrhythmia/Palpitations Stated Complaint: palpitations Time Seen by Provider: 05/27/24 21:33 Source: patient Mode of arrival: ambulatory Limitations: no limitations History of Present Illness ED Provider: melecio MENDEZ narrative: Patient is status post tetralogy of Fallot surgery, RBBB with frequent episode of SVT used to be on verapamil 240 mg and bisoprolol ran out of the medication 2 weeks ago had episode of SVT 2 weeks ago was seen at the hospital no medication was given again off and on having the palpitation episode this time patient's heart been racing for last 2 hours up to 150 feels slight dizzy on arrival heart rate was in 130s Related Data Home Medications ?Medication ?Instructions ?Recorded ?Confirmed budesonide 90 mcg/actuation breath 2 inh inhalation BID 10/03/23 10/03/23 activated powder inhaler (Pulmicort Flexhaler) Previous Rx's ?Medication ?Instructions ?Recorded bisoprolol fumarate 5 mg tablet 5 mg PO DAILY #90 tabs 05/27/24 verapamil 240 mg 24 hr 240 mg PO QAM #90 caps 05/27/24 capsule,extended release Allergies Allergy/AdvReac Type Severity Reaction Status Date / Time citalopram [CITALOPRAM] Allergy Severe THROAT Verified 05/27/24 21:09 SWELLING, ANXIETY diphenhydramine Allergy Difficulty Verified 05/27/24 21:09 [From Benadryl] Breathing Review of Systems Review of Systems: Yes all other systems are reviewed and are negative PMFSH Past Medical History Medical History Anxiety and depression HTN (hypertension) RBBB Tetralogy of Fallot SVT (supraventricular tachycardia) Social History Social History Alcohol intake: never Patient Tobacco Use Status: Never used Tobacco Smoked in Last 30 Days: No Substance Use Type: Marijuana Advance Directives: No Advance Directives Information Provided: No Do you have a plan to hurt others: No Plan service: No Physical Exam Vital Signs: Vital Signs: Last Vital Signs Temp 98.3 F 05/27/24 22:57 Pulse 70 05/27/24 22:57 Resp 20 05/27/24 22:57 BP 110/76 05/27/24 22:57 Pulse Ox 98 05/27/24 22:57 O2 Del Method Room Air 05/27/24 22:57 BMI result Body Mass Index 22.2 Appearance: Alert. Oriented X3. No acute distress. Eyes: PERRLA, no pallor or icterus ENT: Pharynx normal. Oral Mucosa moist Neck: Normal inspection. Neck supple. CVS: Tachycardic regular rate and rhythm. Pulses normal. Respiratory: No respiratory distress. Equal air entry bilateral, no wheezing/rales/rhonchi Abdomen: Soft and nontender. Bowel sounds are present, no mass palpable, no CVA tenderness Skin: Skin warm and dry. Normal skin color. Normal skin turgor. Extremities: No lower extremity edema. No calf tenderness Neuro: Oriented X 3. No motor deficit. No sensory deficit.No cerebellar signs , cranial nerves II-XII intact Medications Administered Discontinued Medications Generic Name Dose Route Start Last Admin Trade Name Freq PRN Reason Stop Dose Admin Metoprolol Tartrate 5 mg 05/27/24 21:35 05/27/24 21:38 Metoprolol Tartrate 5 Mg/5 Ml Vial IVPUSH 05/27/24 21:36 5 mg ONCE ONE Administration Protocol Medical Decision Making Medical Decision Making [facility] Narrative: Patient with recurrent SVT status post TOF surgery supposed to be on verapamil and bisoprolol which he ran out of last 2 weeks. Patient responded to metoprolol 5 mg IV heart rate is 80 now will discharge patient home on verapamil and bisoprolol prescription advised to follow with high speed operator Differential Diagnosis Differential Diagnoses: The differential diagnosis associated with the presentation includes SVT/AFib/atrial flutter Admission/Observation Consideration of admission/observation: Escalation of care including admission/observation considered Lab Data [facility] Lab Attestation statement: I reviewed the patient's lab results. 05/27/24 21:31 05/27/24 21:31 Labs: Lab Results 05/27/24 Range/Units 21:31 WBC 9.4 (4.8-10.8) X10*3/uL RBC 5.60 (4.60-5.80) X10*6/uL Hgb 16.3 (14.0-18.0) g/dl Hct 47.3 (42.0-52.0) % MCV 84.5 (80.0-98.0) fL MCH 29.1 (27.0-33.0) pg MCHC 34.5 (31.0-36.0) g/dl RDW 12.2 (11.0-16.0) % Plt Count 261 D (160-400) X10*3/uL MPV 11.6 (9.4-12.4) fL Immature Gran % (Auto) 0.2 (0.0-0.4) % Neut % (Auto) 64.0 (45-73) % Lymph % (Auto) 22.7 (20-40) % Story % (Auto) 8.5 (2-11) % Eos % (Auto) 3.7 (0-4) % Baso % (Auto) 0.9 (0-2) % Lymph # (Auto) 2.1 (1.2-4.9) X10*3/uL Story # (Auto) 0.8 (0.1-1.2) X10*3/uL Eos # (Auto) 0.4 (0.0-0.4) X10*3/uL Baso # (Auto) 0.1 (0.0-0.2) X10*3/uL Abs Immat Gran (auto) 0.02 (0.00-0.03) X10*3/uL Absolute Neuts (auto) 6.0 (2.0-8.3) x10*3/uL Absolute Nucleated RBC 0.000 (0.0-0.012) X10*3/uL Nucleated RBC % (auto) 0.0 (0.0-0.2) /100WBC Sodium 142 (135-145) mmol/L Potassium 4.3 (3.3-5.1) mmol/L Chloride 110 H (96-108) mmol/L Carbon Dioxide 25 (22-29) mmol/L Anion Gap 11 L (12-20) BUN 14 (9-16) mg/dL Creatinine 0.87 (0.5-1.4) mg/dL Estim Creat Clear Calc 131.3 Estimated GFR > 60 Random Glucose 91 (60-115) mg/dL Calcium 10.1 (8.4-10.2) mg/dL Total Bilirubin 0.4 (0.0-1.0) mg/dL Direct Bilirubin 0.2 (0.0-0.5) mg/dL AST 18 (5-37) U/L ALT 10 (0-40) U/L Alkaline Phosphatase 102 (39-117) U/L Troponin I High Sens < 2.7 (<3.5-35.0) ng/L Total Protein 8.0 (6.5-8.0) g/dL Albumin 4.7 (3.5-5.0) g/dL Lipase 33 (8-78) U/L Critical Care Time Critical Care Time Critical Care Time: Yes Total Critical Care Time: 55 Attestation: The patient was critically ill with a high probability of imminent or life threatening deterioration. I spent greater than 60???minutes of discontinuous time evaluating the patient,delivering critical care at the bedside, discussing and evaluating pertinent data with consultants. Critical care time does not include time spent performing separately billable procedures or teaching. Total time spent performing critical care was ?55??minutes. Discharge Plan Discharge Clinical Impression: Supraventricular tachycardia Patient Disposition: Home, Self-Care Instructions: Supraventricular Tachycardia (ED) Additional Instructions: Take your medication as prescribed on a regular basis and follow with high speed operator Rib report to the ER if recurrence of the palpitation Prescriptions: New verapamil 240 mg capsule,ext rel. pellets 24 hr 240 mg PO QAM Qty: 90 3RF bisoprolol fumarate 5 mg tablet 5 mg PO DAILY Qty: 90 3RF No Action Pulmicort Flexhaler 90 mcg/actuation aerosol powdr breath activated 2 inh INHALATION BID Interventions: ED Discharge Assessment Last Done: 05/27/24 22:57 Discharge Date/Time: 05/27/24 23:01 Print Language: Lao
[2024-05-27 22:44] VITALS: PULSE 75; RESP 16; O2SAT 98
[2024-05-27 22:57] VITALS: BP 110/76; PULSE 70; RESP 20; TEMP 36.8; O2SAT 98
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
--- OUTSIDE RECORDS SUMMARY | 2024-05-28 08:37 | XMS_ITS | Continuity of Care Document ---
Author Organization [facility] ter Address [address] [place] [address]- Care Team Providers Care Social And Human Services Assistant Name Role Phone Allen Bunn MD Primary Care Physician [facility] Date[facility]/22 - 12/21/[address] [address] Attending Physician: Speedy De La Rosa Admitting Physician: Speedy De La Rosa Referring Physician: Speedy De La Rosa Allergies, Adverse Reactions, Alerts Substance Reaction Severity [...] Recorded Medications bisoprolol 5 mg oral tablet 0.5 tablet, By Mouth, Daily, # 15 tablet, 1 Refills, [id number], 180.1, cm, 02/21/22 15:13:00 EDT, Height Start Date: 04/24/22 Status: Ordered bisoprolol 5 mg oral tablet 1 tablet = 5 mg, By Mouth, Daily, # 30 tablet, 11 Refills, Maintenance, 11/08/22 12:41:00 EST, Tablet, [facility]/pharmacy #[id number], 180.1, cm, 11/06/22 15:42:00 EST, Height Start Date: 11/08/22 Stop Date: 11/03/23 Status: Ordered ipratropium nasal 21 mcg/inh spray 2 sprays, Nares, Both, 2 times a day, # 30 mL, 0 Refills, Maintenance, 08/24/22 15:18:00 EDT, [place], [facility]/pharmacy #[id number], Partial fill upon patient request if the prescription is for a schedule II opioid drug., 2 sprays Nares, Both 2 times a day, 180.1... Start Date: 08/24/22 Status: Ordered multivitamin with fluoride Multiple Vitamins with Fluoride 1 mg oral tablet, chewable 1 tablet, Chew, Daily, # 90 tablet, 0 Refills, Maintenance, 09/25/19 17:45:31 EDT, Chew Tablet, 1 tablet Chew Daily Start Date: 09/25/19 Status: Ordered ProAir HFA 90 mcg/inh inhalation aerosol with adapter 1, puffs, Inhalation, 4 times a day, PRN, # 8.5 each, Refills 5, Route to Pharmacy Electronically, [id number], [id number], 180.1, cm, 02/21/22 15:13:00 EDT, Height Start Date: 05/24/22 Status: Ordered venlafaxine 37.5 mg oral capsule, extended release 37.5 mg, 1, capsule, By Mouth, Daily, # 30 capsule, Refills 1, Tot. Refills 1, Maintenance, 06/22/22 14:01:00 EDT, [id number]c [facility]ertraline, 180.1, cm, 06/22/22 13:15:00 EDT, Height Start Date: 06/22/22 Status: Ordered verapamil 240 mg oral capsule, extended release 1 capsule = 240 mg, By Mouth, Daily, # 30 capsule, 5 Refills, Maintenance, 11/19/22 11:40:00 EST, [place] Caps[place], [facility]/pharmacy #2070, 180.1, cm, 11/06/22 15:42:00 EST, Height Start Date: 11/19/22 Stop Date: 05/18/23 Status: Ordered Problem List Condition Confirmation Course [...] Confirmed Active Insomnia Confirmed Active *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, out of school hours care worker, [facility] [phone] Confirmed Active Pulmonary stenosis Confirmed Active Moderate recurrent major depression Confirmed Active Right bundle branch block (RBBB) Confirmed Active VSD (ventricular septal defect) Confirmed Active Social History Social History Type Response Smoking Status Never smoker; Tobacc o user in household: No entered on: 05/08/17 Sex Patient Care team information Care Team Personnel Name: Alexa Lopez RN Position: S RN Supv Member Role: Primary Care Nurse Name: Allen Bunn MD Position: [facility] Resident Member Role: PCP Address: Address: [address] [place] [address]- [place] Name: Aleksandra Saavedra MD Position: [facility] General Pediatrics MD Member Role: Lifetime Consulting Physician Care Team Related Persons Name: LILO SOUTH Address: [address] [place] [address] Name: HSIRA PERAZA Name: MAXIMO VASQUEZ Address: [address] [address]
--- OUTSIDE RECORDS SUMMARY | 2024-05-28 08:37 | XMS_ITS | Continuity of Care Document ---
Author Organization [facility] Address [address] [place] [address]- Care Team Providers Care Mail Distribution Scheme Examiner Name Role Phone Ken ENNIS Arline Primary Care Physician [facility] Date[facility]): 09/20/23 - 10/20/23 [facility] [address] [place] [address]- Allergies, Adverse Reactions, Alerts Substance Reaction Severity [...] tablet, 1 Refills, Maintenance, 09/10/23 7:42:00 EDT, [facility]/pharmacy #[id number], 180.1, cm, 08/15/23 14:25:00 EDT, Height Start Date: 09/10/23 Status: Ordered ipratropium nasal 21 mcg/inh spray 2 sprays, Nares, Both, 2 times a day, # 30 mL, 0 Refills, Maintenance, 08/24/22 15:18:00 EDT, [place], [facility]/pharmacy #[id number], Partial fill upon patient request [...] 1 each, Refills 2, Tot. Refills 2, 08/15/23 15:28:00 EDT, Route to Pharmacy Electronically, [id number], [facility]/pharmacy #[id number], 180.1, cm, 08/15/23 14:25:00 EDT, Height Start Date: 08/15/23 Status: Ordered Pulmicort Flexhaler 90 mcg 2 puffs, Inhalation, 2 times a day, rinse mouth after use, # 1 each, 2 Refills, Maintenance, 08/15/23 15:41:00 EDT, [place], [facility]/pharmacy #[id number], Partial fill upon patient request if the prescription is for a schedule II opioid drug., 2 puffs Inhalation... Start Date: 08/15/23 Status: Ordered venlafaxine 37.5 mg oral capsule, extended release 1 capsule, By Mouth, Daily, # 30 capsule, 2 Refills, Maintenance, 04/09/23 17:38:00 EDT, [id number], 180.1, cm, 11/06/22 15:42:00 EST, Height Start Date: 04/09/23 Status: Ordered verapamil 240 mg oral capsule, extended release 1 capsule, By Mouth, Daily, # 90 capsule, 1 Refills, Maintenance, 06/09/23 23:02:00 EDT, [facility], 180.1, cm, 04/26/23 9:30:00 EDT, Height Start Date: 06/09/23 Status: Ordered Problem List Condition Confirmation Course [...] Confirmed Active Insomnia Confirmed Active *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, care director, [facility] [phone] Confirmed Active Pulmonary stenosis Confirmed Active Moderate recurrent major depression Confirmed Active Right bundle branch block (RBBB) Confirmed Active VSD (ventricular septal defect) Confirmed Active Social History Social History Type Response Smoking Status Never smoker; Tobacc o user in household: No entered on: 05/08/17 Sex Patient Care team information Care Team Personnel Name: Alexa Lopez RN Position: [facility] RN Supv Member Role: Primary Care Nurse Name: Aleksandra Saavedra MD Position: [facility] General Pediatrics MD Member Role: Lifetime Consulting Physician Name: Arline Rogers DO Position: [facility] Resident Member Role: PCP Address: Address: [address] [place] [address] Team Related Persons Name: LILO SOUTH Address: home [address] [place] [address] Name: SHIRA PERAZA Name: MAXIMO VASQUEZ Address: home [address] [facility] [address] [place] [address]
--- OUTSIDE RECORDS SUMMARY | 2024-05-28 08:37 | XMS_ITS | Continuity of Care Document ---
Author Organization [facility] Address [address] [place] [address]- Care Team Providers Care Cabin Cleaning Supervisor Name Role Phone Arline Rogers DO Primary Care Physician [phone] [place]counter [facility] Date(s): 03/03/24 - 05/15/24 [facility] [address] [place], [place] [phone] Attending Physician: Not on Staff, Attending MD Admitting Physician: Daljit Haque MD Allergies, Adverse Reactions, Alerts Substance Reaction Severity [...] tablet, 1 Refills, Maintenance, 09/10/23 7:42:00 EDT, [facility]/pharmacy #[id number], 180.1, cm, 08/15/23 14:25:00 EDT, Height Start Date: 09/10/23 Status: Ordered ipratropium nasal 21 mcg/inh spray 2 sprays, Nares, Both, 2 times a day, # 30 mL, 1 Refills, Maintenance, 03/16/24 11:22:00 EDT, [place], [facility] #[id number], Partial fill upon patient request if the [...] 03/11/24 13:59:00 EDT, Route to Pharmacy Electronically, NCPDP_[id number], [facility] #[id number], 180, cm, 03/11/24 13:27:00 EDT, Height, 70, kg, 11/07/23 12:03:00 ES... Start Date: 03/11/24 Status: Ordered Pulmicort Flexhaler 90 mcg 2 puffs, Inhalation, 2 times a day, rinse mouth after use, # 1 each, 5 Refills, Maintenance, 03/16/24 8:30:00 EDT, [place], [facility] #[id number], Partial fill upon patient request if the prescription is for a schedule II opioid drug., 2 puffs In... Start Date: 03/16/24 Status: Ordered venlafaxine 37.5 mg oral capsule, extended release 1 capsule, By Mouth, Daily, # 90 capsule, 1 Refills, Maintenance, 03/16/24 8:31:00 EDT, [facility] #[id number], 180, cm, 03/11/24 13:27:00 EDT, Height, 70, kg, 11/07/23 12:03:00 EST, Dry Weight Start Date: 03/16/24 Status: Ordered verapamil 240 mg oral capsule, extended release 1 capsule, By Mouth, Daily, # 90 capsule, 1 Refills, Maintenance, 01/06/24 18:47:00 EST, [facility]/pharmacy #[id number], 180, cm, 11/07/23 19:07:00 EST, Height, [...] Confirmed Active Insomnia Confirmed Active *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, adult care provider, [facility] [phone] Confirmed Active Pulmonary stenosis Confirmed Active Moderate recurrent major depression Confirmed Active Right bundle branch block (RBBB) Confirmed Active VSD (ventricular septal defect) Confirmed Active Social History Social History Type Response Smoking Status Never smoker; Tobacc o user in household: No entered on: 05/08/17 Sex Patient Care team information Care Team Personnel Name: Alexa Lopez RN Position: [facility] RN Supv Member Role: Primary Care Nurse Name: Norm Tyler RN Position: [facility] RN Member Role: Primary Care Nurse Name: Luann Lee RN Position: [facility] RN Member Role: Primary Care Nurse Name: Apple Hopson RN Position: [facility] RN Member Role: Primary Care Nurse Name: Aleksandra Saavedra MD Position: [facility] Physician - Pediatrics Member Role: Lifetime Consulting Physician Name: Nay Ledbetter RN Position: [facility] RN Member Role: Primary Care Nurse Name: Arline Rogers DO Position: [facility] Resident Member Role: PCP Address: Address: [address] [place] [address]- [place] Care Team Related Persons Name: MARIELLE MENDOZA Address: home [address] [place] [address] Name: LILO SOUTH Address: home [address] [place] [address] Name: SHIRA PERAZA Name: MAXIMO VASQUEZ Address: home [address] [address]
--- OUTSIDE RECORDS SUMMARY | 2024-05-28 08:37 | XMS_ITS | Continuity of Care Document ---
Author Organization [facility] Address [address] [place] [address]- Care Team Providers Care Aviation Survival Technician Name Role Phone Ken Arline ENNIS Primary Care Physician [place] [facility]23 - 08/14/23 [facility] [address] [place] [address]- Attending Physician: Not on Staff, Attending MD Allergies, Adverse Reactions, Alerts Substance Reaction [...] Medications bisoprolol 5 mg oral tablet 1 tablet = 5 mg, By Mouth, Daily, # 30 tablet, 11 Refills, Maintenance, 11/08/22 12:41:00 EST, Tablet, [facility]/pharmacy #[id number], 180.1, cm, 11/06/22 15:42:00 EST, Height Start Date: 11/08/22 Stop Date: 11/03/23 Status: Ordered ipratropium nasal 21 mcg/inh spray 2 sprays, Nares, Both, 2 times a day, # 30 mL, 0 Refills, Maintenance, 08/24/22 15:18:00 EDT, [place], [facility]/pharmacy #[id number], Partial fill upon patient request [...] day, PRN, # 8.5 each, Refills 5, Tot. Refills 5, 07/26/23 12:31:00 EDT, Route to Pharmacy Electronically, [id number], [facility]/pharmacy #[id number], 180.1, cm, 07/15/23 11:18:00 EDT, Height Start Date: 07/26/23 Status: Ordered venlafaxine 37.5 mg oral capsule, extended release 1 capsule, By Mouth, Daily, # 30 capsule, 2 Refills, Maintenance, 04/09/23 17:38:00 EDT, [id number], 180.1, cm, 11/06/22 15:42:00 EST, Height Start Date: 04/09/23 Status: Ordered verapamil 240 mg oral capsule, extended release 1 capsule, By Mouth, Daily, # 90 capsule, 1 Refills, Maintenance, 06/09/23 23:02:00 EDT, [facility], 180.1, cm, 04/26/23 9:30:00 EDT, Height Start [...] Confirmed Active Insomnia Confirmed Active *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, critical care nurse practitioner, [facility] [phone] Confirmed Active Pulmonary stenosis Confirmed Active Moderate recurrent major depression Confirmed Active Right bundle branch block (RBBB) Confirmed Active VSD (ventricular septal defect) Confirmed Active Vital Signs Most recent to oldest [Reference Range]: 1 Height 180.1 cm (07/15/23 11:18 AM) Social History Social History Type Response Smoking Status Never smoker; Tobacc o user in household: No entered on: 05/08/17 Sex Patient Care team information Care Team Personnel Name: Alexa Lopez RN Position: [facility] RN Supv Member Role: Primary Care Nurse Name: Aleksandra Saavedra MD Position: [facility] General Pediatrics MD Member Role: Lifetime Consulting Physician Name: Arline Rogers DO Position: [facility] Resident Member Role: PCP Address: Address: [address] [place] [address]- Care Team Related Persons Name: LILO SOUTH Address: home [address] [place] [address] Name: SHIRA PERAZA Name: MAXIMO VASQUEZ Address: home [address] [address] [place] [address]
--- OUTSIDE RECORDS SUMMARY | 2024-05-28 08:37 | XMS_ITS | Continuity of Care Document ---
Author Organization [facility] Address [address] [place] [address]- Care Team Providers Care Jockey'S Agent Name Role Phone Arline Rogers DO Primary Care Physician [place] [facility] [place](s): 04/21/24 - 05/21/24 [facility] [address] [place] [address]- Attending Physician: Israel Hoffmann Admitting Physician: Israel Hoffmann Referring Physician: [id number] Allergies, Adverse Reactions, Alerts Substance Reaction Severity [...] tablet, 1 Refills, Maintenance, 09/10/23 7:42:00 EDT, [facility]/pharmacy #[id number], 180.1, cm, 08/15/23 14:25:00 EDT, Height Start Date: 09/10/23 Status: Ordered ipratropium nasal 21 mcg/inh spray 2 sprays, Nares, Both, 2 times a day, # 30 mL, 1 Refills, Maintenance, 03/16/24 11:22:00 EDT, [place], [facility] #[id number], Partial fill upon patient request if the [...] 03/11/24 13:59:00 EDT, Route to Pharmacy Electronically, NCPDP_[id number], [facility] #[id number], 180, cm, 03/11/24 13:27:00 EDT, Height, 70, kg, 11/07/23 12:03:00 ES... Start Date: 03/11/24 Status: Ordered Pulmicort Flexhaler 90 mcg 2 puffs, Inhalation, 2 times a day, rinse mouth after use, # 1 each, 5 Refills, Maintenance, 03/16/24 8:30:00 EDT, [place], [facility] #[id number], Partial fill upon patient request if the prescription is for a schedule II opioid drug., 2 puffs In... Start Date: 03/16/24 Status: Ordered venlafaxine 37.5 mg oral capsule, extended release 1 capsule, By Mouth, Daily, # 90 capsule, 1 Refills, Maintenance, 03/16/24 8:31:00 EDT, [facility] #[id number], 180, cm, 03/11/24 13:27:00 EDT, Height, 70, kg, 11/07/23 12:03:00 EST, Dry Weight Start Date: 03/16/24 Status: Ordered verapamil 240 mg oral capsule, extended release 1 capsule, By Mouth, Daily, # 90 capsule, 1 Refills, Maintenance, 01/06/24 18:47:00 EST, [facility]/pharmacy #[id number], 180, cm, 11/07/23 19:07:00 EST, Height, [...] Insomnia Confirmed Active *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, critical care clinical nurse specialist, [facility] [phone] Confirmed Active Pulmonary stenosis Confirmed Active Moderate recurrent major depression Confirmed Active Right bundle branch block (RBBB) Confirmed Active VSD (ventricular septal defect) Confirmed Active Social History Social History Type Response Smoking Status Never smoker; Tobacc o user in household: No entered on: 05/08/17 Sex Patient Care team information Care Team Personnel Name: Alexa Lopez RN Position: [facility] RN Supv Member Role: Primary Care Nurse Name: Norm Tyler RN Position: [facility] RN Member Role: Primary Care Nurse Name: Luann Lee RN Position: [facility] RN Member Role: Primary Care Nurse Name: Apple Hopson RN Position: [facility] RN Member Role: Primary Care Nurse Name: Aleksandra Saavedra MD Position: [facility] Physician - Pediatrics Member Role: Lifetime Consulting Physician Name: Nay Ledbetter RN Position: [facility] RN Member Role: Primary Care Nurse Name: Arline Rogers DO Position: [facility] Resident Member Role: PCP Address: Address: [address] [place] [address]- [place] Care Team Related Persons Name: MARIELLE MENDOZA Address: home [address] [place] [address] Name: LILO SOUTH Address: home [address] [place] [address] Name: SHIRA PERAZA Name: MAXIMO VASQUEZ Address: [address] [address]
--- OUTSIDE RECORDS SUMMARY | 2024-05-28 08:37 | XMS_ITS | Continuity of Care Document ---
Author Organization [facility] ter Address [address] [place] [address]- Care Team Providers Care Spiral Tube Winder Helper Name Role Phone Ken ENNISArline Primary Care Physician [phone] [facility] Date[facility]s): 07/08/23 - 08/28/[address] [address] Attending Physician: Bing Cesar MD Allergies, Adverse Reactions, Alerts Substance Reaction [...] 11 Refills, Maintenance, 11/08/22 12:41:00 EST, Tablet, [facility]/pharmacy #[id number], 180.1, cm, 11/06/22 15:42:00 EST, Height Start Date: 11/08/22 Stop Date: 11/03/23 Status: Ordered ipratropium nasal 21 mcg/inh spray 2 sprays, Nares, Both, 2 times a day, # 30 mL, 0 Refills, Maintenance, 08/24/22 15:18:00 EDT, [place], [facility]/pharmacy #[id number], Partial fill upon patient request if [...] 08/15/23 15:28:00 EDT, Route to Pharmacy Electronically, [id number], [facility]/pharmacy #2071, 180.1, cm, 08/15/23 14:25:00 EDT, Height Start Date: 08/15/23 Status: Ordered Pulmicort Flexhaler 90 mcg 2 puffs, Inhalation, 2 times a day, rinse mouth after use, # 1 each, 2 Refills, Maintenance, 08/15/23 15:41:00 EDT, [place], [facility]/pharmacy #[id number], Partial fill upon patient request if [...] Refills, Maintenance, 06/09/23 23:02:00 EDT, [facility], 180.1, cm, 04/26/23 9:30:00 EDT, Height Start [...] Confirmed Active Insomnia Confirmed Active *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, home child care provider, [facility] [phone] Confirmed Active Pulmonary stenosis Confirmed Active Moderate recurrent major depression Confirmed Active Right bundle branch block (RBBB) Confirmed Active VSD (ventricular septal defect) Confirmed Active Social History Social History Type Response Smoking Status Never smoker; Tobacc o user in household: No entered on: 05/08/17 Sex Patient Care team information Care Team Personnel Name: Alexa Lopez RN Position: [facility] RN Supv Member Role: Primary Care Nurse Name: Aleksandra Saavedra MD Position: [facility] General Pediatrics MD Member Role: Lifetime Consulting Physician Name: Arline Rogers DO Position: [facility] Resident Member Role: PCP Address: Address: [address] [place] [address]- Care Team Related Persons Name: LILO SOUTH Address: home [address] [place] [address] Name: SHIRA PERAZA Name: MAXIMO VASQUEZ Address: home [address] [facility] [address] [place] [address]
--- OUTSIDE RECORDS SUMMARY | 2024-05-28 08:37 | XMS_ITS | Continuity of Care Document ---
Author Organization [facility] Address [address] [place] [address]- Care Team Providers Care Patrol Conductor Name Role Phone Ken ENNIS Arline Primary Care Physician [facility] Date(s): 03/03/24 - 04/02/24 [facility] [address] [place] [address]- Allergies, Adverse Reactions, Alerts Substance Reaction Severity [...] tablet, 1 Refills, Maintenance, 09/10/23 7:42:00 EDT, [facility]/pharmacy #[id number], 180.1, cm, 08/15/23 14:25:00 EDT, Height Start Date: 09/10/23 Status: Ordered ipratropium nasal 21 mcg/inh spray 2 sprays, Nares, Both, 2 times a day, # 30 mL, 1 Refills, Maintenance, 03/16/24 11:22:00 EDT, [place], [facility] #[id number], Partial fill upon patient request if the [...] 03/11/24 13:59:00 EDT, Route to Pharmacy Electronically, NCPDP_[id number], [facility] #[id number], 180, cm, 03/11/24 13:27:00 EDT, Height, 70, kg, 11/07/23 12:03:00 ES... Start Date: 03/11/24 Status: Ordered Pulmicort Flexhaler 90 mcg 2 puffs, Inhalation, 2 times a day, rinse mouth after use, # 1 each, 5 Refills, Maintenance, 03/16/24 8:30:00 EDT, [place], [facility] #[id number], Partial fill upon patient request if the prescription is for a schedule II opioid drug., 2 puffs In... Start Date: 03/16/24 Status: Ordered venlafaxine 37.5 mg oral capsule, extended release 1 capsule, By Mouth, Daily, # 90 capsule, 1 Refills, Maintenance, 03/16/24 8:31:00 EDT, [facility] #[id number], 180, cm, 03/11/24 13:27:00 EDT, Height, 70, kg, 11/07/23 12:03:00 EST, Dry Weight Start Date: 03/16/24 Status: Ordered verapamil 240 mg oral capsule, extended release 1 capsule, By Mouth, Daily, # 90 capsule, 1 Refills, Maintenance, 01/06/24 18:47:00 EST, [facility]/pharmacy #[id number], 180, cm, 11/07/23 19:07:00 EST, [...] Active Insomnia Confirmed Active *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, home health care provider, [facility] [phone] Confirmed Active Pulmonary stenosis Confirmed Active Moderate [...] Care Nurse Name: Norm Tyler RN Position: [facility] RN Member Role: Primary Care Nurse Name: Luann Lee RN Position: [facility] RN Member Role: Primary Care Nurse Name: Apple Hopson RN Position: [facility] RN Member Role: Primary Care Nurse Name: Aleksandra Saavedra MD Position: [facility] Physician - Pediatrics Member Role: Lifetime Consulting Physician Name: Nay Ledbetter RN Position: [facility] RN Member Role: Primary Care Nurse Name: Arline Rogers DO Position: [facility] Resident Member Role: PCP Address: Address: [address] [place] [address]- Care Team Related Persons Name: MARIELLE MENDOZA Address: home [address] [place] [address] Name: LILO SOUTH Address: home [address] [place] [address] Name: SHIRA PERAZA Name: MAXIMO VASQUEZ Address: [address] [address]
--- OUTSIDE RECORDS SUMMARY | 2024-05-28 08:37 | XMS_ITS | Continuity of Care Document ---
Author Organization [facility] Address [address] [place] [address]- Care Team Providers Care Carpenter Name Role Phone Allen Bunn MD Primary Care Physician [facility]22 - 12/06/22 [facility] [address] [place] [id number] Allergies, Adverse Reactions, Alerts Substance Reaction Severity [...] Daily, # 15 tablet, 1 Refills, [facility]453, 180.1, cm, 02/21/22 15:13:00 EDT, Height Start Date: 04/24/22 Status: Ordered bisoprolol 5 mg oral tablet 1 tablet = 5 mg, By Mouth, Daily, # 30 tablet, 11 Refills, Maintenance, 11/08/22 12:41:00 EST, Tablet, [facility]/pharmacy #2071, 180.1, cm, 11/06/22 15:42:00 EST, Height Start Date: 11/08/22 Stop Date: 11/03/23 Status: Ordered ipratropium nasal 21 mcg/inh spray 2 sprays, Nares, Both, 2 times a day, # 30 mL, 0 Refills, Maintenance, 08/24/22 15:18:00 EDT, [place], [facility]/pharmacy #[id number], Partial fill upon patient request if [...] each, Refills 5, Route to Pharmacy Electronically, [id number], [facility], 180.1, cm, 02/21/22 15:13:00 EDT, Height Start Date: 05/24/22 Status: Ordered venlafaxine 37.5 mg oral capsule, extended release 37.5 mg, 1, capsule, By Mouth, Daily, # 30 capsule, Refills 1, Tot. Refills 1, Maintenance, 06/22/22 14:01:00 EDT, Route to Pharmacy Electronically, [facility]/pharmacy #[id number], please d/c sertraline, 180.1, cm, 06/22/22 13:15:00 EDT, Height Start Date: 06/22/22 Status: Ordered verapamil 240 mg oral capsule, extended release 1 capsule = 240 mg, By Mouth, Daily, # 30 capsule, 5 Refills, Maintenance, 11/19/22 11:40:00 EST, CR Capsule, [facility]/pharmacy #[id number], 180.1, cm, 11/06/22 15:42:00 EST, Height [...] Insomnia Confirmed Active *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, critical care transport nurse, [facility] [phone] Confirmed Active Pulmonary stenosis Confirmed Active Moderate recurrent major depression Confirmed Active Right bundle branch block (RBBB) Confirmed Active VSD (ventricular septal defect) Confirmed Active Social History Social History Type Response Smoking Status Never smoker; Tobacc o user in household: No entered on: 05/08/17 Sex Patient Care team information Care Team Personnel Name: Alexa Lopez RN Position: [facility] RN Supv Member Role: Primary Care Nurse Name: Allen Bunn MD Position: [facility] Resident Member Role: PCP Address: Address: [address] [place] [address] Name: lAeksandra Saavedra MD Position: [facility] General Pediatrics MD Member Role: Lifetime Consulting Physician Care Team Related Persons Name: LILO SOUTH Address: home [address] [place] [address] Name: SHIRA PERAZA Name: MAXIMO VASQUEZ Address: home [address] [facility] [place] [address]
--- OUTSIDE RECORDS SUMMARY | 2024-05-28 08:38 | XMS_ITS | Continuity of Care Document ---
Author Organization [facility] Address [address] [place] [address]- Care Team Providers Care Manager Of Learning Name Role Phone Ken ENNISArline Primary Care Physician [phone] [facility] Date(s): 11/08/23 - 01/03/24 [facility] [address] [place] [address]- Attending Physician: Morgan Wesley MD Admitting Physician: Morgan Wesley MD Allergies, Adverse Reactions, Alerts Substance Reaction [...] tablet, 1 Refills, Maintenance, 09/10/23 7:42:00 EDT, [facility]/pharmacy #[id number], 180.1, cm, 08/15/23 14:25:00 EDT, Height Start Date: 09/10/23 Status: Ordered ipratropium nasal 21 mcg/inh spray 2 sprays, Nares, Both, 2 times a day, # 30 mL, 0 Refills, Maintenance, 08/24/22 15:18:00 EDT, [place], [facility]/pharmacy #[id number], Partial fill upon patient [...] 08/15/23 15:28:00 EDT, Route to Pharmacy Electronically, [id number], [facility]/pharmacy #[id number], 180.1, cm, 08/15/23 14:25:00 EDT, Height Start Date: 08/15/23 Status: Ordered Pulmicort Flexhaler 90 mcg 2 puffs, Inhalation, 2 times a day, rinse mouth after use, # 1 each, 2 Refills, Maintenance, 08/15/23 15:41:00 EDT, [place], [facility]/pharmacy #[id number], Partial fill upon patient [...] Refills, Maintenance, 06/09/23 23:02:00 EDT, [facility], 180.1, cm, 04/26/23 9:30:00 EDT, Height Start [...] Active Insomnia Confirmed Active *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, home care consultant, [facility] [phone] Confirmed Active Pulmonary stenosis Confirmed Active Moderate [...] Care Nurse Name: Norm Tyler RN Position: S RN Member Role: Primary Care Nurse Name: Luann Lee RN Position: [facility] RN Member Role: Primary Care Nurse Name: Apple Hopson RN Position: [facility] RN Member Role: Primary Care Nurse Name: Aleksandra Saavedra MD Position: [facility] Physician - Pediatrics Member Role: Lifetime Consulting Physician Name: Nay Ledbetter RN Position: [facility] RN Member Role: Primary Care Nurse Name: Arline Rogers DO Position: [facility] Resident Member Role: PCP Address: Address: [address] [place] [address]- [place] Care Team Related Persons Name: MARIELLE MENDOZA Address: home [address] [place] [address] Name: LILO SOUTH Address: home [address] [place] [address] Name: SHIRA PERAZA Name: MAXIMO VASQUEZ Address: home [address] [address]
--- OUTSIDE RECORDS SUMMARY | 2024-05-28 08:38 | XMS_ITS | Continuity of Care Document ---
Author Organization [facility] Address [address] [place] [address]- Care Team Providers Care Delivery Driver Name Role Phone Allen Bunn MD Primary Care Physician [phone] [facility] [facility] [place]s): 02/22/23 - 03/24/23 [facility] [address] [place], [place] [address] Attending Physician: Israel Hoffmann Admitting Physician: AdmIsrael coleman Referring Physician: AdmtrIsrael Allergies, Adverse Reactions, Alerts Substance Reaction Severity [...] Mouth, Daily, # 15 tablet, 1 Refills, [facility] 85638, 180.1, cm, 02/21/22 15:13:00 EDT, Height Start Date: 04/24/22 Status: Ordered bisoprolol 5 mg oral tablet 1 tablet = 5 mg, By Mouth, Daily, # 30 tablet, 11 Refills, Maintenance, 11/08/22 12:41:00 EST, Tablet, [facility]/pharmacy #2071, 180.1, cm, 11/06/22 15:42:00 EST, Height Start Date: 11/08/22 Stop Date: 11/03/23 Status: Ordered ipratropium nasal 21 mcg/inh spray 2 sprays, Nares, Both, 2 times a day, # 30 mL, 0 Refills, Maintenance, 08/24/22 15:18:00 EDT, [place], [facility]/pharmacy #2071, Partial fill upon patient request if [...] each, Refills 5, Route to Pharmacy Electronically, [id number], [facility], 180.1, cm, 02/21/22 15:13:00 EDT, Height Start Date: 05/24/22 Status: Ordered venlafaxine 37.5 mg oral capsule, extended release 1 capsule, By Mouth, Daily, STOP SERTRALINE., # 30 capsule, 1 Refills, Maintenance, 02/14/23 9:07:00 EDT, [facility], 180.1, cm, 11/06/22 15:42:00 EST, Height Start Date: 02/14/23 Status: Ordered verapamil 240 mg oral capsule, extended release 1 capsule = 240 mg, By Mouth, Daily, # 30 capsule, 5 Refills, Maintenance, 11/19/22 11:40:00 EST, CR Capsule, [facility], 180.1, cm, 11/06/22 15:42:00 EST, [...] Confirmed Active Insomnia Confirmed Active *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, urgent care, [facility] [phone] Confirmed Active Pulmonary stenosis Confirmed Active Moderate [...] Care Nurse Name: Allen Bunn MD Position: S Resident Member Role: PCP Address: Address: [address] [place] [address] Adult [address] Name: Aleksandra Saavedra MD Position: [facility] General Pediatrics MD Member Role: Lifetime Consulting Physician Care Team Related Persons Name: LILO SOUTH Address: home [address] [place] [address] Name: SHIRA PERAZA Name: MAXIMO VASQUEZ Address: home [address] [facility] [place] [address]
--- OUTSIDE RECORDS SUMMARY | 2024-05-28 08:38 | XMS_ITS | Continuity of Care Document ---
Author Organization [facility] Address [address] [place] [address]- Care Team Providers Care Sanitation Inspector Name Role Phone Ken ENNIS Arline Primary Care Physician [facility] 07/26/23 - 08/25/23 [facility] [address] [place] [address]- Allergies, Adverse Reactions, Alerts Substance Reaction Severity [...] Maintenance, 11/08/22 12:41:00 EST, Tablet, [facility]/pharmacy #2071, 180.1, cm, 11/06/22 15:42:00 EST, Height Start Date: 11/08/22 Stop Date: 11/03/23 Status: Ordered ipratropium nasal 21 mcg/inh spray 2 sprays, Nares, Both, 2 times a day, # 30 mL, 0 Refills, Maintenance, 08/24/22 15:18:00 EDT, [place], [facility]/pharmacy #207, Partial fill upon patient request if the [...] 08/15/23 15:28:00 EDT, Route to Pharmacy Electronically, [id number], [facility]/pharmacy #2071, 180.1, cm, 08/15/23 14:25:00 EDT, Height Start Date: 08/15/23 Status: Ordered Pulmicort Flexhaler 90 mcg 2 puffs, Inhalation, 2 times a day, rinse mouth after use, # 1 each, 2 Refills, Maintenance, 08/15/23 15:41:00 EDT, [place], [facility]/pharmacy #2071, Partial fill upon patient request [...] Refills, Maintenance, 06/09/23 23:02:00 EDT, [facility], 180.1, cm, 04/26/23 9:30:00 EDT, Height Start [...] Confirmed Active Insomnia Confirmed Active *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, wound care center consultant, [facility] [phone] Confirmed Active Pulmonary stenosis Confirmed Active Moderate recurrent major depression Confirmed Active Right bundle branch block (RBBB) Confirmed Active VSD (ventricular septal defect) Confirmed Active Social History Social History Type Response Smoking Status Never smoker; Tobacc o user in household: No entered on: 05/08/17 Sex Patient Care team information Care Team Personnel Name: Alexa Lopez RN Position: [facility] RN Supv Member Role: Primary Care Nurse Name: Aleksandra Saavedra MD Position: [facility] General Pediatrics MD Member Role: Lifetime Consulting Physician Name: Arline Rogers DO Position: [facility] Resident Member Role: PCP Address: Address: [address] [place] [address]- Care Team Related Persons Name: LILO SOUTH Address: home [address] [place] [address] Name: SHIRA PERAZA Name: MAXIMO VASQUEZ Address: home [address] [facility] [place] [address]
--- OUTSIDE RECORDS SUMMARY | 2024-05-28 08:38 | XMS_ITS | Continuity of Care Document ---
Author Organization [facility] Address [address] [place] [address]- Care Team Providers Care Plant Clerk Name Role Phone Ken ENNISArline Primary Care Physician [facility]s): 07/17/23 - 08/18/23 [facility] [address] [place] [address]- Attending Physician: Morgan Wesley MD Admitting Physician: [...] 11 Refills, Maintenance, 11/08/22 12:41:00 EST, Tablet, [facility]/pharmacy #207, 180.1, cm, 11/06/22 15:42:00 EST, Height Start Date: 11/08/22 Stop Date: 11/03/23 Status: Ordered ipratropium nasal 21 mcg/inh spray 2 sprays, Nares, Both, 2 times a day, # 30 mL, 0 Refills, Maintenance, 08/24/22 15:18:00 EDT, [place], [facility]/pharmacy #207, Partial fill upon patient request [...] 08/15/23 15:28:00 EDT, Route to Pharmacy Electronically, [id number], [facility]/pharmacy #2071, 180.1, cm, 08/15/23 14:25:00 EDT, Height Start Date: 08/15/23 Status: Ordered Pulmicort Flexhaler 90 mcg 2 puffs, Inhalation, 2 times a day, rinse mouth after use, # 1 each, 2 Refills, Maintenance, 08/15/23 15:41:00 EDT, [place], [facility]/pharmacy #2071, Partial fill upon patient request if the prescription is for a schedule II opioid drug., 2 puffs Inhalation... Start Date: 08/15/23 Status: Ordered venlafaxine 37.5 mg oral capsule, extended release 1 capsule, By Mouth, Daily, # 30 capsule, 2 Refills, Maintenance, 04/09/23 17:38:00 EDT, [facility], 180.1, cm, 11/06/22 15:42:00 EST, Height Start Date: 04/09/23 Status: Ordered verapamil 240 mg oral capsule, extended release 1 capsule, By Mouth, Daily, # 90 capsule, 1 Refills, Maintenance, 06/09/23 23:02:00 EDT, [facility], 180.1, cm, 04/26/23 9:30:00 EDT, Height Start [...] Confirmed Active Insomnia Confirmed Active *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, career advisor, [facility] [phone] Confirmed Active Pulmonary stenosis Confirmed Active Moderate recurrent major depression Confirmed Active Right bundle branch block (RBBB) Confirmed Active VSD (ventricular septal defect) Confirmed Active Social History Social History Type Response Smoking Status Never smoker; Tobacc o user in household: No entered on: 05/08/17 Sex Patient Care team information Care Team Personnel Name: Alexa Lopez RN Position: [facility] RN Supv Member Role: Primary Care Nurse Name: Aleksandra Saavedra MD Position: [facility] General Pediatrics MD Member Role: Lifetime Consulting Physician Name: Arline Rogers DO Position: [facility] Resident Member Role: PCP Address: Address: [address] [place] [address]- Care Team Related Persons Name: LILO SOUTH Address: home [address] [place] [address] Name: SHIRA PERAZA Name: MAXIMO VASQUEZ Address: home [address] [facility] [place] [address]
--- OUTSIDE RECORDS SUMMARY | 2024-05-28 08:38 | XMS_ITS | Continuity of Care Document ---
Author Organization [facility] Address [address] [place] [address]- Care Team Providers Care Mine Utility Operator Name Role Phone Allen Bunn MD Primary Care Physician [phone] [facility] 11[facility]28[facility]22 - 12/28/22 [facility] [address] [place] [address] Allergies, Adverse Reactions, Alerts Substance Reaction Severity [...] Daily, # 15 tablet, 1 Refills, [facility] 66199, 180.1, cm, 02/21/22 15:13:00 EDT, Height Start Date: 04/24/22 Status: Ordered bisoprolol 5 mg oral tablet 1 tablet = 5 mg, By Mouth, Daily, # 30 tablet, 11 Refills, Maintenance, 11/08/22 12:41:00 EST, Tablet, [facility]/pharmacy #2071, 180.1, cm, 11/06/22 15:42:00 EST, Height Start Date: 11/08/22 Stop Date: 11/03/23 Status: Ordered ipratropium nasal 21 mcg/inh spray 2 sprays, Nares, Both, 2 times a day, # 30 mL, 0 Refills, Maintenance, 08/24/22 15:18:00 EDT, [place], [facility]/pharmacy #2071, Partial fill upon patient request [...] each, Refills 5, Route to Pharmacy Electronically, [id number], [facility], 180.1, cm, 02/21/22 15:13:00 EDT, Height Start Date: 05/24/22 Status: Ordered venlafaxine 37.5 mg oral capsule, extended release 37.5 mg, 1, capsule, By Mouth, Daily, # 30 capsule, Refills 1, Tot. Refills 1, Maintenance, 06/22/22 14:01:00 EDT, Route to Pharmacy Electronically, [facility]/pharmacy #2071, please d/c sertraline, 180.1, cm, 06/22/22 13:15:00 EDT, Height Start Date: 06/22/22 Status: Ordered verapamil 240 mg oral capsule, extended release 1 capsule = 240 mg, By Mouth, Daily, # 30 capsule, 5 Refills, Maintenance, 11/19/22 11:40:00 EST, CR Capsule, [facility]/pharmacy #2071, 180.1, cm, 11/06/22 15:42:00 EST, [...] Confirmed Active Insomnia Confirmed Active *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, health care legal assistant, [facility] [phone] Confirmed Active Pulmonary stenosis Confirmed Active Moderate recurrent major depression Confirmed Active Right bundle branch block (RBBB) Confirmed Active VSD (ventricular septal defect) Confirmed Active Social History Social History Type Response Smoking Status Never smoker; Tobacc o user in household: No entered on: 05/08/17 Sex Patient Care team information Care Team Personnel Name: Alexa Lopez RN Position: [facility] RN Supv Member Role: Primary Care Nurse Name: Allen Bunn MD Position: [facility] Resident Member Role: PCP Address: Address: [address] [place] [address] Name: Aleksandra Saavedra MD Position: [facility] General Pediatrics MD Member Role: Lifetime Consulting Physician Care Team Related Persons Name: LILO SOUTH Address: home [address] [place] [address] Name: HSIRA PERAZA Name: MAXIMO VASQUEZ Address: home [address] [facility] [place] [address]
--- OUTSIDE RECORDS SUMMARY | 2024-05-28 08:38 | XMS_ITS | Continuity of Care Document ---
Author Organization [facility] Address [address] [place] [address]- Care Team Providers Care Integrated Pest Management Technician Name Role Phone Allen Bunn MD Primary Care Physician [phone] [facility] 02[facility]23 - 03/06/23 [facility] [address] [place] [address] Allergies, Adverse Reactions, Alerts Substance [...] Daily, # 15 tablet, 1 Refills, [facility] 38760, 180.1, cm, 02/21/22 15:13:00 EDT, Height Start Date: 04/24/22 Status: Ordered bisoprolol 5 mg oral tablet 1 tablet = 5 mg, By Mouth, Daily, # 30 tablet, 11 Refills, Maintenance, 11/08/22 12:41:00 EST, Tablet, [facility]/pharmacy #2071, 180.1, cm, 11/06/22 15:42:00 EST, Height Start Date: 11/08/22 Stop Date: 11/03/23 Status: Ordered ipratropium nasal 21 mcg/inh spray 2 sprays, Nares, Both, 2 times a day, # 30 mL, 0 Refills, Maintenance, 08/24/22 15:18:00 EDT, [place], [facility]/pharmacy #[id number], Partial fill upon patient request if [...] each, Refills 5, Route to Pharmacy Electronically, [id number], [facility], 180.1, cm, 02/21/22 15:13:00 EDT, Height Start Date: 05/24/22 Status: Ordered venlafaxine 37.5 mg oral capsule, extended release 1 capsule, By Mouth, Daily, STOP SERTRALINE., # 30 capsule, 1 Refills, Maintenance, 02/14/23 9:07:00 EDT, [facility], 180.1, cm, 11/06/22 15:42:00 EST, Height Start [...] Confirmed Active Insomnia Confirmed Active *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, animal care service worker, [facility] [phone] Confirmed Active Pulmonary stenosis Confirmed Active Moderate recurrent major depression Confirmed Active Right bundle branch block (RBBB) Confirmed Active VSD (ventricular septal defect) Confirmed Active Social History Social History Type Response Smoking Status Never smoker; Tobacc o user in household: No entered on: 05/08/17 Sex Patient Care team information Care Team Personnel Name: Alexa Lopez RN Position: [facility] RN Supv Member Role: Primary Care Nurse Name: Allen Bunn MD Position: [facility] Resident Member Role: PCP Address: Address: [address] [place] [address] [place], [place] [address] Name: Aleksandra Saavedra MD Position: [facility] General Pediatrics MD Member Role: Lifetime Consulting Physician Care Team Related Persons Name: LILO SOUTH Address: home [address] [place] [address] Name: SHIRA PERAZA Name: MAXIMO VASQUEZ Address: home [address] [facility] [place] [address]
--- OUTSIDE RECORDS SUMMARY | 2024-05-28 08:38 | XMS_ITS | Continuity of Care Document ---
Author Organization [facility] Address [address] [place] [address], [address]t [address] [place] [address]- Care Team Providers Care Insulation Cupola Charger Name Role Phone Arline Rogers DO Primary Care Physician [facility] 07[facility]23 - 08/04/23 [facility] [address] [facility], 4th Floor [address] [place] [address] Allergies, Adverse Reactions, Alerts Substance Reaction Severity [...] 11 Refills, Maintenance, 11/08/22 12:41:00 EST, Tablet, [facility]/pharmacy #[id number], 180.1, cm, 11/06/22 15:42:00 EST, Height Start Date: 11/08/22 Stop Date: 11/03/23 Status: Ordered ipratropium nasal 21 mcg/inh spray 2 sprays, Nares, Both, 2 times a day, # 30 mL, 0 Refills, Maintenance, 08/24/22 15:18:00 EDT, [place], [facility]/pharmacy #[id number], Partial fill upon patient request if [...] 07/26/23 12:31:00 EDT, Route to Pharmacy Electronically, [id number], [facility]/pharmacy #2071, 180.1, cm, 07/15/23 11:18:00 EDT, Height [...] Refills, Maintenance, 06/09/23 23:02:00 EDT, [facility], 180.1, cm, 04/26/23 9:30:00 EDT, Height Start [...] Confirmed Active Insomnia Confirmed Active *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, hemodialysis patient care specialist, [facility] [phone] Confirmed Active Pulmonary stenosis Confirmed Active Moderate recurrent major depression Confirmed Active Right bundle branch block (RBBB) Confirmed Active VSD (ventricular septal defect) Confirmed Active Social History Social History Type Response Smoking Status Never smoker; Tobacc o user in household: No entered on: 05/08/17 Sex Patient Care team information Care Team Personnel Name: Alexa Lopez RN Position: [facility] RN Supv Member Role: Primary Care Nurse Name: Aleksandra Saavedra MD Position: [facility] General Pediatrics MD Member Role: Lifetime Consulting Physician Name: Arline Rogers DO Position: [facility] Resident Member Role: PCP Address: Address: [address] [place] [address]- Care Team Related Persons Name: LILO SOUTH Address: home [address] [place] [address] Name: SHIRA PERAZA Name: MAXIMO VASQUEZ Address: home [address] [address]
--- OUTSIDE RECORDS SUMMARY | 2024-05-28 08:38 | XMS_ITS | Continuity of Care Document ---
Author Organization [facility] Address [address] [place] [address]- Care Team Providers Care Machine Castings Plasterer Name Role Phone ShellArline aguilera DO Primary Care Physician [phone] [place] [facility] [place](s[place] 03/19/24 - 05/21/24 [facility] [address] [place] [address]- Attending Physician: Ashly Fishman Admitting Physician: Ashly Fishman Referring Physician: Ashly Fishman Allergies, Adverse Reactions, Alerts Substance Reaction Severity [...] tablet, 1 Refills, Maintenance, 09/10/23 7:42:00 EDT, [facility]/pharmacy #[id number], 180.1, cm, 08/15/23 14:25:00 EDT, Height Start Date: 09/10/23 Status: Ordered ipratropium nasal 21 mcg/inh spray 2 sprays, Nares, Both, 2 times a day, # 30 mL, 1 Refills, Maintenance, 03/16/24 11:22:00 EDT, [place], [facility] #[id number], Partial fill upon patient request if the [...] 03/11/24 13:59:00 EDT, Route to Pharmacy Electronically, NCPDP_[id number], [facility] #[id number], 180, cm, 03/11/24 13:27:00 EDT, Height, 70, kg, 11/07/23 12:03:00 ES... Start Date: 03/11/24 Status: Ordered Pulmicort Flexhaler 90 mcg 2 puffs, Inhalation, 2 times a day, rinse mouth after use, # 1 each, 5 Refills, Maintenance, 03/16/24 8:30:00 EDT, [place], [facility] #[id number], Partial fill upon patient request if the prescription is for a schedule II opioid drug., 2 puffs In... Start Date: 03/16/24 Status: Ordered venlafaxine 37.5 mg oral capsule, extended release 1 capsule, By Mouth, Daily, # 90 capsule, 1 Refills, Maintenance, 03/16/24 8:31:00 EDT, [facility] #[id number], 180, cm, 03/11/24 13:27:00 EDT, Height, 70, kg, 11/07/23 12:03:00 EST, Dry Weight Start Date: 03/16/24 Status: Ordered verapamil 240 mg oral capsule, extended release 1 capsule, By Mouth, Daily, # 90 capsule, 1 Refills, Maintenance, 01/06/24 18:47:00 EST, [facility]/pharmacy #[id number], 180, cm, 11/07/23 19:07:00 EST, [...] Confirmed Active Insomnia Confirmed Active *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, field care coordinator, ICP [phone] Confirmed Active Pulmonary stenosis Confirmed Active Moderate recurrent major depression Confirmed Active Right bundle branch block (RBBB) Confirmed Active VSD (ventricular septal defect) Confirmed Active Social History Social History Type Response Smoking Status Never smoker; Tobacc o user in household: No entered on: 05/08/17 Sex Patient Care team information Care Team Personnel Name: Alexa Lopez RN Position: [facility] RN Supv Member Role: Primary Care Nurse Name: Norm Tyler RN Position: [facility] RN Member Role: Primary Care Nurse Name: Luann Lee RN Position: [facility] RN Member Role: Primary Care Nurse Name: Apple Hopson RN Position: [facility] RN Member Role: Primary Care Nurse Name: Aleksandra Saavedra MD Position: [facility] Physician - Pediatrics Member Role: Lifetime Consulting Physician Name: Nay Ledbetter RN Position: [facility] RN Member Role: Primary Care Nurse Name: Arline Rogers DO Position: [facility] Resident Member Role: PCP Address: Address: [address] [place] [address]- [place] Care Team Related Persons Name: MARIELLE MENDOZA Address: home [address] [place] [address] Name: LILO SOUTH Address: home [address] [place] [address] Name: SHIRA PERAZA Name: MAXIMO VASQUEZ Address: [address] [address]
--- OUTSIDE RECORDS SUMMARY | 2024-05-28 08:38 | XMS_ITS | Continuity of Care Document ---
Author Organization [facility] ter Address [address] [place] [address]- Care Team Providers Care Multimedia Production Assistant Name Role Phone Ken Arline ENNIS Primary Care Physician [facility]counter [facility] Date(s): 06/03/23 - 07/14/[address] [address]- Attending Physician: Kathrin Garcia MD Allergies, Adverse Reactions, Alerts Substance Reaction [...] mL, 0 Refills, Maintenance, 08/24/22 15:18:00 EDT, [place], [facility]/pharmacy #[id number], Partial fill upon [...] each, Refills 5, Route to Pharmacy Electronically, [id number], [facility], 180.1, cm, 02/21/22 15:13:00 EDT, Height Start [...] Refills, Maintenance, 06/09/23 23:02:00 EDT, [facility], 180.1, cm, 04/26/23 9:30:00 EDT, Height Start [...] Confirmed Active Insomnia Confirmed Active *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, skin care instructor, ICP [phone] Confirmed Active Pulmonary stenosis Confirmed Active Moderate recurrent major depression Confirmed Active Right bundle branch block (RBBB) Confirmed Active VSD (ventricular septal defect) Confirmed Active Social History Social History Type Response Smoking Status Never smoker; Tobacc o user in household: No entered on: 05/08/17 Sex Patient Care team information Care Team Personnel Name: Alexa Lopez RN Position: [facility] RN Supv Member Role: Primary Care Nurse Name: Aleksandra Saavedra MD Position: [facility] General Pediatrics MD Member Role: Lifetime Consulting Physician Name: Arline Rogers DO Position: [facility] Resident Member Role: PCP Address: Address: [address] [place] [address]- Care Team Related Persons Name: LILO SOUTH Address: home [address] [place] [address] Name: SHIRA PERAZA Name: MAXIMO VASQUEZ Address: home [address] [facility] [place] [address]
--- OUTSIDE RECORDS SUMMARY | 2024-05-28 08:38 | XMS_ITS | Continuity of Care Document ---
Author Organization [facility] Address [address] [place] [address]- Care Team Providers Care Coordinator Hotels Name Role Phone Ken ENNIS Arline Primary Care Physician [facility]counter [facility] Date(s): 03/16/24 - 04/15/24 [facility] [address] [place] [address]- Allergies, Adverse Reactions, Alerts Substance Reaction Severity [...] tablet, 1 Refills, Maintenance, 09/10/23 7:42:00 EDT, [facility]/pharmacy #[id number], 180.1, cm, 08/15/23 14:25:00 EDT, Height Start Date: 09/10/23 Status: Ordered ipratropium nasal 21 mcg/inh spray 2 sprays, Nares, Both, 2 times a day, # 30 mL, 1 Refills, Maintenance, 03/16/24 11:22:00 EDT, [place], [facility] #[id number], Partial fill upon patient request if the [...] 03/11/24 13:59:00 EDT, Route to Pharmacy Electronically, NCPDP_[id number], [facility] #07654, 180, cm, 03/11/24 13:27:00 EDT, Height, 70, kg, 11/07/23 12:03:00 ES... Start Date: 03/11/24 Status: Ordered Pulmicort Flexhaler 90 mcg 2 puffs, Inhalation, 2 times a day, rinse mouth after use, # 1 each, 5 Refills, Maintenance, 03/16/24 8:30:00 EDT, [place], [facility] #10039, Partial fill upon patient request if the prescription is for a schedule II opioid drug., 2 puffs In... Start Date: 03/16/24 Status: Ordered venlafaxine 37.5 mg oral capsule, extended release 1 capsule, By Mouth, Daily, # 90 capsule, 1 Refills, Maintenance, 03/16/24 8:31:00 EDT, [facility] #96708, 180, cm, 03/11/24 13:27:00 EDT, Height, 70, kg, 11/07/23 12:03:00 EST, Dry Weight Start Date: 03/16/24 Status: Ordered verapamil 240 mg oral capsule, extended release 1 capsule, By Mouth, Daily, # 90 capsule, 1 Refills, Maintenance, 01/06/24 18:47:00 EST, [facility]/pharmacy #[id number], 180, cm, 11/07/23 19:07:00 EST, [...] Insomnia Confirmed Active *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, health care marketing specialist, [facility] [phone] Confirmed Active Pulmonary stenosis Confirmed Active Moderate [...] Care Nurse Name: Luann Lee RN Position: [facility] RN Member Role: Primary Care Nurse Name: Apple Hopson RN Position: [facility] RN Member Role: Primary Care Nurse Name: Aleksandra Saavedra MD Position: [facility] Physician - Pediatrics Member Role: Lifetime Consulting Physician Name: Nay Ledbetter RN Position: [facility] RN Member Role: Primary Care Nurse Name: Arline Rogers DO Position: [facility] Resident Member Role: PCP Address: Address: [address] [place] [address]- Care Team Related Persons Name: MARIELLE MENDOZA Address: home [address] [place] [address] Name: LILO SOUTH Address: home [address] [place] [address] Name: SHIRA PERAZA Name: MAXIMO VASQUEZ Address: home [address] [address]
--- OUTSIDE RECORDS SUMMARY | 2024-05-28 08:38 | XMS_ITS | Continuity of Care Document ---
Author Organization [facility] Address [address] [place] [address]- Care Team Providers Care Fishing Floats Assembler Name Role Phone Allen Bunn MD Primary Care Physician [facility]counter [facility] Date(s): 04/26/23 - 05/26/23 [facility] [address] [place] [address]- Attending Physician: Israel Hoffmann Admitting Physician: AdmIsrael [...] mL, 0 Refills, Maintenance, 08/24/22 15:18:00 EDT, [place], [facility]/pharmacy #[id number], Partial fill [...] each, Refills 5, Route to Pharmacy Electronically, [id number], [facility] 91772, 180.1, cm, 02/21/22 15:13:00 EDT, Height Start [...] Active Insomnia Confirmed Active *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, career placement specialist, [facility] [phone] Confirmed Active Pulmonary stenosis Confirmed Active Moderate recurrent major depression Confirmed Active Right bundle branch block (RBBB) Confirmed Active VSD (ventricular septal defect) Confirmed Active Social History Social History Type Response Smoking Status Never smoker; Tobacc o user in household: No entered on: 05/08/17 Sex Patient Care team information Care Team Personnel Name: Alexa Lopez RN Position: [facility] RN Supv Member Role: Primary Care Nurse Name: Allen Bunn MD Position: [facility] Resident Member Role: PCP Address: Address: [address] [place] [address]- Name: Aleksandra Saavedra MD Position: [facility] General Pediatrics MD Member Role: Lifetime Consulting Physician Care Team Related Persons Name: LILO SOUTH Address: home [address] [place] [address] Name: SHIRA PERAZA Name: MAXIMO VASQUEZ Address: home [address] [place] [address]
--- OUTSIDE RECORDS SUMMARY | 2024-05-28 08:38 | XMS_ITS | Continuity of Care Document ---
Author Organization [facility] Address [address] [place] [address]- Care Team Providers Care Parts Manager Name Role Phone Ken Arline ENNIS Primary Care Physician [facility]counter [facility] Date(s): 06/24/23 - 07/24/23 [facility] [address] [place] [address]- Allergies, Adverse Reactions, Alerts Substance Reaction Severity [...] 11 Refills, Maintenance, 11/08/22 12:41:00 EST, [place], [facility]/pharmacy #[id number], 180.1, cm, 11/06/22 15:42:00 EST, Height Start Date: 11/08/22 Stop Date: 11/03/23 Status: Ordered ipratropium nasal 21 mcg/inh spray 2 sprays, Nares, Both, 2 times a day, # 30 mL, 0 Refills, Maintenance, 08/24/22 15:18:00 EDT, [place], [facility]/pharmacy #[id number], Partial fill upon patient [...] each, Refills 5, Route to Pharmacy Electronically, [id number], [facility], 180.1, cm, 02/21/22 15:13:00 EDT, Height Start [...] Refills, Maintenance, 06/09/23 23:02:00 EDT, [facility], 180.1, cm, 04/26/23 9:30:00 EDT, Height Start [...] Confirmed Active Insomnia Confirmed Active *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, primary care coordinator, [facility] [phone] Confirmed Active Pulmonary stenosis Confirmed Active Moderate recurrent major depression Confirmed Active Right bundle branch block (RBBB) Confirmed Active VSD (ventricular septal defect) Confirmed Active Social History Social History Type Response Smoking Status Never smoker; Tobacc o user in household: No entered on: 05/08/17 Sex Patient Care team information Care Team Personnel Name: Alexa Lopez RN Position: [facility] RN Supv Member Role: Primary Care Nurse Name: Aleksandra Saavedra MD Position: [facility] General Pediatrics MD Member Role: Lifetime Consulting Physician Name: Arline Rogers DO Position: [facility] Resident Member Role: PCP Address: Address: [address] [place] [address]- Care Team Related Persons Name: LILO SOUTH Address: home [address] [place] [address] Name: SHIRA PERAZA Name: MAXIMO VASQUEZ Address: home [address] [facility] [place] [address]
--- OUTSIDE RECORDS SUMMARY | 2024-05-28 08:38 | XMS_ITS | Continuity of Care Document ---
Author Organization [facility] Address [address] [place] [address]- Care Team Providers Care Form Press Operator Name Role Phone Allen Bunn MD Primary Care Physician [place] [facility]10[place]22 - 12/20/22 [facility] [address] [place] [address]- Attending Physician: Not on Staff, Attending MD [...] Mouth, Daily, # 15 tablet, 1 Refills, [facility] 32944, 180.1, cm, 02/21/22 15:13:00 EDT, Height Start Date: 04/24/22 Status: Ordered bisoprolol 5 mg oral tablet 1 tablet = 5 mg, By Mouth, Daily, # 30 tablet, 11 Refills, Maintenance, 11/08/22 12:41:00 EST, [place], [facility]/pharmacy #2071, 180.1, cm, 11/06/22 15:42:00 EST, Height Start Date: 11/08/22 Stop Date: 11/03/23 Status: Ordered ipratropium nasal 21 mcg/inh spray 2 sprays, Nares, Both, 2 times a day, # 30 mL, 0 Refills, Maintenance, 08/24/22 15:18:00 EDT, [place], [facility]/pharmacy #[id number], Partial fill upon patient request [...] each, Refills 5, Route to Pharmacy Electronically, [id number], [facility], 180.1, cm, 02/21/22 15:13:00 EDT, Height Start Date: 05/24/22 Status: Ordered venlafaxine 37.5 mg oral capsule, extended release 37.5 mg, 1, capsule, By Mouth, Daily, # 30 capsule, Refills 1, Tot. Refills 1, Maintenance, 06/22/22 14:01:00 EDT, Route to Pharmacy Electronically, [facility]/pharmacy #2071, please d/c sertraline, 180.1, cm, 06/22/22 13:15:00 EDT, Height Start Date: 06/22/22 Status: Ordered verapamil 240 mg oral capsule, extended release 1 capsule = 240 mg, By Mouth, Daily, # 30 capsule, 5 Refills, Maintenance, 11/19/22 11:40:00 EST, [place] Caps[place], [facility]/pharmacy #[id number], 180.1, cm, 11/06/22 15:42:00 EST, [...] Active Insomnia Confirmed Active *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, career law clerk, [facility] [phone] Confirmed Active Pulmonary stenosis Confirmed Active Moderate [...] S Resident Member Role: PCP Address: Address: [address] [place] [address] [place], [place] [address] Name: Aleksandra Saavedra MD Position: [facility] General Pediatrics MD Member Role: Lifetime Consulting Physician Care Team Related Persons Name: LILO SOUTH Address: home [address] [place] [address] Name: SHIRA PERAZA Name: MAXIMO VASQUEZ Address: home [address] [facility] [place] [address]
--- OUTSIDE RECORDS SUMMARY | 2024-05-28 08:38 | XMS_ITS | Continuity of Care Document ---
Author Organization [facility] ter Address [address] [place] [address]- Care Team Providers Care Utility Bill Collection Clerk Name Role Phone Ken ENNISArline Primary Care Physician [phone] [place] [facility] [place] 04/14/24 - 05/20/[address] [address]- Attending Physician: Ashly Fishman Admitting Physician: Ashly [...] tablet, 1 Refills, Maintenance, 09/10/23 7:42:00 EDT, [facility]/pharmacy #[id number], 180.1, cm, 08/15/23 14:25:00 EDT, Height Start Date: 09/10/23 Status: Ordered ipratropium nasal 21 mcg/inh spray 2 sprays, Nares, Both, 2 times a day, # 30 mL, 1 Refills, Maintenance, 03/16/24 11:22:00 EDT, [place], [facility] #[id number], Partial fill upon patient request if the [...] 03/11/24 13:59:00 EDT, Route to Pharmacy Electronically, NCPDP_[id number], [facility] #60954, 180, cm, 03/11/24 13:27:00 EDT, Height, 70, kg, 11/07/23 12:03:00 ES... Start Date: 03/11/24 Status: Ordered Pulmicort Flexhaler 90 mcg 2 puffs, Inhalation, 2 times a day, rinse mouth after use, # 1 each, 5 Refills, Maintenance, 03/16/24 8:30:00 EDT, [place], [facility] #60825, Partial fill upon patient request if the prescription is for a schedule II opioid drug., 2 puffs In... Start Date: 03/16/24 Status: Ordered venlafaxine 37.5 mg oral capsule, extended release 1 capsule, By Mouth, Daily, # 90 capsule, 1 Refills, Maintenance, 03/16/24 8:31:00 EDT, [facility] #13492, 180, cm, 03/11/24 13:27:00 EDT, Height, 70, kg, 11/07/23 12:03:00 EST, Dry Weight Start Date: 03/16/24 Status: Ordered verapamil 240 mg oral capsule, extended release 1 capsule, By Mouth, Daily, # 90 capsule, 1 Refills, Maintenance, 01/06/24 18:47:00 EST, [facility]/pharmacy #[id number], 180, cm, 11/07/23 19:07:00 [...] Confirmed Active Insomnia Confirmed Active *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, palliative care physician, [facility] [phone] Confirmed Active Pulmonary stenosis Confirmed Active Moderate recurrent major depression Confirmed Active Right bundle branch block (RBBB) Confirmed Active VSD (ventricular septal defect) Confirmed Active Social History Social History Type Response Smoking Status Never smoker; Tobacc o user in household: No entered on: 05/08/17 Sex Patient Care team information Care Team Personnel Name: Alexa Lopez RN Position: [facility] RN Supv Member Role: Primary Care Nurse Name: Norm Tyler RN Position: [facility] RN Member Role: Primary Care Nurse Name: Luann Lee RN Position: [facility] RN Member Role: Primary Care Nurse Name: Apple Hopson RN Position: [facility] RN Member Role: Primary Care Nurse Name: Aleksandra Saavedra MD Position: [facility] Physician - Pediatrics Member Role: Lifetime Consulting Physician Name: Nay Ledbetter RN Position: [facility] RN Member Role: Primary Care Nurse Name: Arline Rogers DO Position: [facility] Resident Member Role: PCP Address: Address: [address] [place] [address]- Care Team Related Persons Name: MARIELLE MENDOZA Address: home [address] [place] [address] Name: LILO SOUTH Address: home [address] [place] [address] Name: SHIRA PERAZA Name: MAXIMO VASQUEZ Address: home [address] [place] [address]
--- OUTSIDE RECORDS SUMMARY | 2024-05-28 08:39 | XMS_ITS | Continuity of Care Document ---
Author Organization [facility] Address [address] [place] [address]- Care Team Providers Care Regulatory Process Manager Name Role Phone Ken Arline ENNIS Primary Care Physician [facility] Date[facility]s): 12/04/23 - 01/03/24 [facility] [address] [place] [address] Attending Physician: Israel Hoffmann Admitting Physician: AdmtrIsrael Referring Physician: Admtr, ArRupinder Allergies, Adverse Reactions, Alerts Substance Reaction Severity [...] tablet, 1 Refills, Maintenance, 09/10/23 7:42:00 EDT, [facility]/pharmacy #2071, 180.1, cm, 08/15/23 14:25:00 EDT, Height Start Date: 09/10/23 Status: Ordered ipratropium nasal 21 mcg/inh spray 2 sprays, Nares, Both, 2 times a day, # 30 mL, 0 Refills, Maintenance, 08/24/22 15:18:00 EDT, [place], [facility]/pharmacy #[id number], Partial fill upon patient request [...] 08/15/23 15:28:00 EDT, Route to Pharmacy Electronically, [id number], [facility]/pharmacy #2071, 180.1, cm, 08/15/23 14:25:00 EDT, Height Start Date: 08/15/23 Status: Ordered Pulmicort Flexhaler 90 mcg 2 puffs, Inhalation, 2 times a day, rinse mouth after use, # 1 each, 2 Refills, Maintenance, 08/15/23 15:41:00 EDT, [place], [facility]/pharmacy #[id number], Partial fill upon patient request [...] Refills, Maintenance, 06/09/23 23:02:00 EDT, [facility], 180.1, cm, 04/26/23 9:30:00 EDT, Height Start [...] Confirmed Active Insomnia Confirmed Active *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, child care education coordinator, [facility] [phone] Confirmed Active Pulmonary stenosis Confirmed Active Moderate recurrent major depression Confirmed Active Right bundle branch block (RBBB) Confirmed Active VSD (ventricular septal defect) Confirmed Active Social History Social History Type Response Smoking Status Never smoker; Tobacc o user in household: No entered on: 05/08/17 Sex Hospital Consult note * Event Display: Inpatient Consult Note, Non- Authored Date: [id number] Patient Care team information Care Team Personnel Name: Alexa Lopez RN Position: S RN Supv Member Role: Primary Care Nurse Name: Norm Tyler RN Position: [facility] RN Member Role: Primary Care Nurse Name: Luann Lee RN Position: [facility] RN Member Role: Primary Care Nurse Name: Apple Hopson RN Position: [facility] RN Member Role: Primary Care Nurse Name: Aleksandra Saavedra MD Position: [facility] Physician - Pediatrics Member Role: Lifetime Consulting Physician Name: Nay Ledbetter RN Position: [facility] RN Member Role: Primary Care Nurse Name: Arline Rogers DO Position: [facility] Resident Member Role: PCP Address: Address: [address] [place] [address]- Care Team Related Persons Name: MARIELLE MENDOZA Address: home [address] [place] [address] Name: LILO SOUTH Address: home [address] [place] [address] Name: SHIRA PERAZA Name: MAXIMO VASQUEZ Address: [address] [address]
--- OUTSIDE RECORDS SUMMARY | 2024-05-28 08:39 | XMS_ITS | Continuity of Care Document ---
Author Organization [facility] Address [address] [place] [address]- Care Team Providers Care Dewer Name Role Phone Arline Rogers DO Primary Care Physician [phone] [facility] 01/[facility]/24 - 02/05/24 [facility] [address] [place] [address]- Allergies, Adverse Reactions, Alerts Substance Reaction Severity [...] tablet, 1 Refills, Maintenance, 09/10/23 7:42:00 EDT, [facility]/pharmacy #[id number], 180.1, cm, 08/15/23 14:25:00 EDT, Height Start Date: 09/10/23 Status: Ordered ipratropium nasal 21 mcg/inh spray 2 sprays, Nares, Both, 2 times a day, # 30 mL, 0 Refills, Maintenance, 08/24/22 15:18:00 EDT, [place], [facility]/pharmacy #[id number], Partial fill upon [...] 08/15/23 15:28:00 EDT, Route to Pharmacy Electronically, [id number], [facility]/pharmacy #[id number], 180.1, cm, 08/15/23 14:25:00 EDT, Height Start Date: 08/15/23 Status: Ordered Pulmicort Flexhaler 90 mcg 2 puffs, Inhalation, 2 times a day, rinse mouth after use, # 1 each, 2 Refills, Maintenance, 08/15/23 15:41:00 EDT, [place], [facility]/pharmacy #[id number], Partial fill upon patient request if the prescription is for a schedule II opioid drug., 2 puffs Inhalation... Start Date: 08/15/23 Status: Ordered venlafaxine 37.5 mg oral capsule, extended release 1 capsule, By Mouth, Daily, # 30 capsule, 2 Refills, Maintenance, 04/09/23 17:38:00 EDT, [facility]/pharmacy #[id number], 180.1, cm, 11/06/22 15:42:00 EST, Height Start Date: 04/09/23 Status: Ordered verapamil 240 mg oral capsule, extended release 1 capsule, By Mouth, Daily, # 90 capsule, 1 Refills, Maintenance, 01/06/24 18:47:00 EST, [facility]/pharmacy #[id number], 180, cm, 11/07/23 [...] Confirmed Active Insomnia Confirmed Active *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, pediatric acute care unit nurse, [facility] [phone] Confirmed Active Pulmonary stenosis Confirmed Active Moderate [...] Care Nurse Name: Luann Lee RN Position: S RN Member Role: Primary Care Nurse Name: Apple Hopson RN Position: [facility] RN Member Role: Primary Care Nurse Name: Aleksandra Saavedra MD Position: [facility] Physician - Pediatrics Member Role: Lifetime Consulting Physician Name: Nay Ledbetter RN Position: [facility] RN Member Role: Primary Care Nurse Name: Arline Rogers DO Position: [facility] Resident Member Role: PCP Address: Address: [address] [place] [address]- [place] Care Team Related Persons Name: MARIELLE MENDOZA Address: home [address] [place] [address] Name: LILO SOUTH Address: home [address] [place] [address] Name: SHIRA PERAZA Name: MAXIMO VASQUEZ Address: home [address] [facility] [place] [address] [address]
--- OUTSIDE RECORDS SUMMARY | 2024-05-28 08:39 | XMS_ITS | Continuity of Care Document ---
Author Organization [facility] Address [address] [place] [address]- Care Team Providers Care Psychologist Educational Name Role Phone Ken ENNISArline Primary Care Physician [facility] 11/05/23 - 12/05/23 [facility] [address] [place] [address]- Allergies, Adverse Reactions, Alerts Substance Reaction Severity [...] tablet, 1 Refills, Maintenance, 09/10/23 7:42:00 EDT, [facility]/pharmacy #[id number], 180.1, cm, 08/15/23 14:25:00 EDT, Height Start Date: 09/10/23 Status: Ordered ipratropium nasal 21 mcg/inh spray 2 sprays, Nares, Both, 2 times a day, # 30 mL, 0 Refills, Maintenance, 08/24/22 15:18:00 EDT, [place], [facility]/pharmacy #[id number], Partial fill upon patient request [...] 08/15/23 15:28:00 EDT, Route to Pharmacy Electronically, [id number], [facility]/pharmacy #[id number], 180.1, cm, 08/15/23 14:25:00 EDT, Height Start Date: 08/15/23 Status: Ordered Pulmicort Flexhaler 90 mcg 2 puffs, Inhalation, 2 times a day, rinse mouth after use, # 1 each, 2 Refills, Maintenance, 08/15/23 15:41:00 EDT, [place], [facility]/pharmacy #[id number], Partial fill upon patient request [...] Refills, Maintenance, 06/09/23 23:02:00 EDT, [id number], 180.1, cm, 04/26/23 9:30:00 EDT, Height Start [...] Active Insomnia Confirmed Active *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, adult live in caregiver, [facility] [phone] Confirmed Active Pulmonary stenosis Confirmed Active Moderate [...] Care Nurse Name: Apple Hopson RN Position: [facility] RN Member Role: Primary Care Nurse Name: Aleksandra Saavedra MD Position: [facility] General Pediatrics MD Member Role: Lifetime Consulting Physician Name: Nay Ledbetter RN Position: [facility] RN Member Role: Primary Care Nurse Name: Arline Rogers DO Position: [facility] Resident Member Role: PCP Address: Address: [address] [place] [address]- [place] Care Team Related Persons Name: MARIELLE MENDOZA Address: home [address] [place] [address] Name: LILO SOUTH Address: home [address] [place] [address] Name: SHIRA PERAZA Name: MAXIMO VASQUEZ Address: [address] [address]
--- OUTSIDE RECORDS SUMMARY | 2024-05-28 08:39 | XMS_ITS | Continuity of Care Document ---
Author Organization [facility] Address [address] [place] [address]- Care Team Providers Care Commercial Project Manager Name Role Phone Allen Bunn MD Primary Care Physician [facility] 11/[facility]/22 - 12/06/22 [facility] [address] [place] [id number] Allergies, Adverse Reactions, Alerts [...] Mouth, Daily, # 15 tablet, 1 Refills, [id number], 180.1, cm, 02/21/22 15:13:00 EDT, Height Start Date: 04/24/22 Status: Ordered bisoprolol 5 mg oral tablet 1 tablet = 5 mg, By Mouth, Daily, # 30 tablet, 11 Refills, Maintenance, 11/08/22 12:41:00 EST, Tablet, [facility]/pharmacy #[id number], 180.1, cm, 11/06/22 15:42:00 EST, Height Start Date: 11/08/22 Stop Date: 11/03/23 Status: Ordered ipratropium nasal 21 mcg/inh spray 2 sprays, Nares, Both, 2 times a day, # 30 mL, 0 Refills, Maintenance, 08/24/22 15:18:00 EDT, [place], [facility]/pharmacy #[id number], Partial fill upon patient [...] each, Refills 5, Route to Pharmacy Electronically, [id number], [facility], 180.1, cm, 02/21/22 15:13:00 EDT, Height Start Date: 05/24/22 Status: Ordered venlafaxine 37.5 mg oral capsule, extended release 37.5 mg, 1, capsule, By Mouth, Daily, # 30 capsule, Refills 1, Tot. Refills 1, Maintenance, 06/22/22 14:01:00 EDT, Route to Pharmacy Electronically, [facility]/pharmacy #[id number], please d/c sertraline, 180.1, cm, 06/22/22 13:15:00 EDT, Height Start Date: 06/22/22 Status: Ordered verapamil 240 mg oral capsule, extended release 1 capsule = 240 mg, By Mouth, Daily, # 30 capsule, 5 Refills, Maintenance, 11/19/22 11:40:00 EST, CR Capsule, [facility]/pharmacy #[id number], 180.1, cm, 11/06/22 15:42:00 [...] Confirmed Active Insomnia Confirmed Active *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, eye care professional, [facility] [phone] Confirmed Active Pulmonary stenosis Confirmed Active Moderate recurrent major depression Confirmed Active Right bundle branch block (RBBB) Confirmed Active VSD (ventricular septal defect) Confirmed Active Social History Social History Type Response Smoking Status Never smoker; Tobacc o user in household: No entered on: 05/08/17 Sex Patient Care team information Care Team Personnel Name: Alexa Lopez RN Position: [facility] RN Supv Member Role: Primary Care Nurse Name: Allen Bunn MD Position: [facility] Resident Member Role: PCP Address: Address: [address] [place] [address] Name: Aleksandra Saavedra MD Position: [facility] General Pediatrics MD Member Role: Lifetime Consulting Physician Care Team Related Persons Name: LILO SOUTH Address: home [address] [place] [address] Name: SHIRA PERAZA Name: MAXIMO VASQUEZ Address: home [address] [facility] [place] [address]
--- OUTSIDE RECORDS SUMMARY | 2024-05-28 08:39 | XMS_ITS | Continuity of Care Document ---
Author Organization [facility] Address [address] [place] [address]- Care Team Providers Care Core Feeder Name Role Phone Ken ENNIS Arline Primary Care Physician [phone] [facility]): 03/18/24 - 04/17/24 [facility] [address] [place] [address]- Allergies, Adverse Reactions, Alerts Substance Reaction Severity [...] mL, 1 Refills, Maintenance, 03/16/24 11:22:00 EDT, [place], [facility] #[id number], Partial fill upon patient request if the [...] 03/11/24 13:59:00 EDT, Route to Pharmacy Electronically, NCPDP_[id number], [facility] #[id number], 180, cm, 03/11/24 13:27:00 EDT, Height, 70, kg, 11/07/23 12:03:00 ES... Start Date: 03/11/24 Status: Ordered Pulmicort Flexhaler 90 mcg 2 puffs, Inhalation, 2 times a day, rinse mouth after use, # 1 each, 5 Refills, Maintenance, 03/16/24 8:30:00 EDT, [place], [facility] #[id number], Partial fill upon patient request if the prescription is for a schedule II opioid drug., 2 puffs In... Start Date: 03/16/24 Status: Ordered venlafaxine 37.5 mg oral capsule, extended release 1 capsule, By Mouth, Daily, # 90 capsule, 1 Refills, Maintenance, 03/16/24 8:31:00 EDT, [facility] #[id number], 180, cm, 03/11/24 13:27:00 EDT, Height, 70, [...] Active Insomnia Confirmed Active *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, care manager, [facility] [phone] Confirmed Active Pulmonary stenosis Confirmed Active Moderate [...] Care Nurse Name: Norm Tyler RN Position: [facility] RN Member Role: Primary Care Nurse Name: Luann Lee RN Position: [facility] RN Member Role: Primary Care Nurse Name: Apple Hopson RN Position: [facility] RN Member Role: Primary Care Nurse Name: Aleksandra Saavedra MD Position: [facility] Physician - Pediatrics Member Role: Lifetime Consulting Physician Name: Nay Ledbetter RN Position: [facility] RN Member Role: Primary Care Nurse Name: Arline Rogers DO Position: [facility] Resident Member Role: PCP Address: Address: [address] [place] [address]- Care Team Related Persons Name: MARIELLE MENDOZA Address: home [address] [place] [address] Name: LILO SOUTH Address: home [address] [place] [address] Name: SHIRA PERAZA Name: MAXIMO VASQUEZ Address: [address] [address]
--- OUTSIDE RECORDS SUMMARY | 2024-05-28 08:39 | XMS_ITS | Continuity of Care Document ---
Author Organization [facility] Address [address] [place] [address]- Care Team Providers Care Corporate Security Officer Name Role Phone Ken ENNISArline Primary Care Physician [facility] 04/15/24 - 05/15/24 [facility] [address] [place], [place] [phone] Attending Physician: Israel Hoffmann Admitting Physician: AdmIsrael [...] tablet, 1 Refills, Maintenance, 09/10/23 7:42:00 EDT, [facility]/pharmacy #[id number], 180.1, cm, 08/15/23 14:25:00 EDT, Height Start Date: 09/10/23 Status: Ordered ipratropium nasal 21 mcg/inh spray 2 sprays, Nares, Both, 2 times a day, # 30 mL, 1 Refills, Maintenance, 03/16/24 11:22:00 EDT, [place], [facility] #[id number], Partial fill upon patient request if the [...] 03/11/24 13:59:00 EDT, Route to Pharmacy Electronically, NCPDP_[id number], [facility] #[id number], 180, cm, 03/11/24 13:27:00 EDT, Height, 70, kg, 11/07/23 12:03:00 ES... Start Date: 03/11/24 Status: Ordered Pulmicort Flexhaler 90 mcg 2 puffs, Inhalation, 2 times a day, rinse mouth after use, # 1 each, 5 Refills, Maintenance, 03/16/24 8:30:00 EDT, [place], [facility] #[id number], Partial fill upon patient request if the prescription is for a schedule II opioid drug., 2 puffs In... Start Date: 03/16/24 Status: Ordered venlafaxine 37.5 mg oral capsule, extended release 1 capsule, By Mouth, Daily, # 90 capsule, 1 Refills, Maintenance, 03/16/24 8:31:00 EDT, [facility] #[id number], 180, cm, 03/11/24 13:27:00 EDT, Height, 70, kg, 11/07/23 12:03:00 EST, Dry Weight Start Date: 03/16/24 Status: Ordered verapamil 240 mg oral capsule, extended release 1 capsule, By Mouth, Daily, # 90 capsule, 1 Refills, Maintenance, 01/06/24 18:47:00 EST, [facility]/pharmacy #[id number], 180, cm, 11/07/23 19:07:00 [...] Insomnia Confirmed Active *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, child care team lead, [facility] [phone] Confirmed Active Pulmonary stenosis Confirmed Active Moderate recurrent major depression Confirmed Active Right bundle branch block (RBBB) Confirmed Active VSD (ventricular septal defect) Confirmed Active Social History Social History Type Response Smoking Status Never smoker; Tobacc o user in household: No entered on: 05/08/17 Sex Hospital Consult note * Event Display: Inpatient Consult Note, Non- Authored Date: [id number] Patient Care team information Care Team Personnel Name: Alexa Lopez RN Position: [facility] RN Supv Member Role: Primary Care Nurse Name: Norm Tyler RN Position: [facility] RN Member Role: Primary Care Nurse Name: Luann Lee RN Position: [facility] RN Member Role: Primary Care Nurse Name: Apple Hopson RN Position: [facility] RN Member Role: Primary Care Nurse Name: Aleksandra Saavedra MD Position: [facility] Physician - Pediatrics Member Role: Lifetime Consulting Physician Name: Nay Ledbetter RN Position: [facility] RN Member Role: Primary Care Nurse Name: Arline Rogers DO Position: [facility] Resident Member Role: PCP Address: Address: [address] [place] [address]- Care Team Related Persons Name: MARIELLE MENDOZA Address: home [address] [place] [address] Name: LILO SOUTH Address: home [address] [place] [address] Name: SHIRA PERAZA Name: MAXIMO VASQUEZ Address: [address] [address]
--- OUTSIDE RECORDS SUMMARY | 2024-05-28 08:39 | XMS_ITS | Continuity of Care Document ---
Author Organization [facility] Address [address] [place] [address]- Care Team Providers Care Toe Stapler Name Role Phone Ken ENNIS Arline Primary Care Physician [facility]s): 03/16/24 - 04/15/24 [facility] [address] [place] [address]- Allergies, Adverse Reactions, Alerts Substance Reaction Severity [...] tablet, 1 Refills, Maintenance, 09/10/23 7:42:00 EDT, [facility]/pharmacy #[id number], 180.1, cm, 08/15/23 14:25:00 EDT, Height Start Date: 09/10/23 Status: Ordered ipratropium nasal 21 mcg/inh spray 2 sprays, Nares, Both, 2 times a day, # 30 mL, 1 Refills, Maintenance, 03/16/24 11:22:00 EDT, [place], [facility] #[id number], Partial fill upon patient request if the [...] 03/11/24 13:59:00 EDT, Route to Pharmacy Electronically, NCPDP_[id number], [facility] #[id number], 180, cm, 03/11/24 13:27:00 EDT, Height, 70, kg, 11/07/23 12:03:00 ES... Start Date: 03/11/24 Status: Ordered Pulmicort Flexhaler 90 mcg 2 puffs, Inhalation, 2 times a day, rinse mouth after use, # 1 each, 5 Refills, Maintenance, 03/16/24 8:30:00 EDT, [place], [facility] #[id number], Partial fill upon patient request if the prescription is for a schedule II opioid drug., 2 puffs In... Start Date: 03/16/24 Status: Ordered venlafaxine 37.5 mg oral capsule, extended release 1 capsule, By Mouth, Daily, # 90 capsule, 1 Refills, Maintenance, 03/16/24 8:31:00 EDT, [facility] #[id number], 180, cm, 03/11/24 13:27:00 EDT, Height, 70, kg, 11/07/23 12:03:00 EST, Dry Weight Start Date: 03/16/24 Status: Ordered verapamil 240 mg oral capsule, extended release 1 capsule, By Mouth, Daily, # 90 capsule, 1 Refills, Maintenance, 01/06/24 18:47:00 EST, [facility]/pharmacy #[id number], 180, cm, 11/07/23 19:07:00 [...] Insomnia Confirmed Active *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, child care provider, [facility] [phone] Confirmed Active Pulmonary stenosis Confirmed Active Moderate [...] Care Nurse Name: Norm Tyler RN Position: [facility] RN Member Role: Primary Care Nurse Name: Luann Lee RN Position: [facility] RN Member Role: Primary Care Nurse Name: Apple Hopson RN Position: [facility] RN Member Role: Primary Care Nurse Name: Aleksandra Saavedra MD Position: [facility] Physician - Pediatrics Member Role: Lifetime Consulting Physician Name: Nay Ledbetter RN Position: [facility] RN Member Role: Primary Care Nurse Name: Arline Rogers DO Position: [facility] Resident Member Role: PCP Address: Address: [address] [place] [address]- Care Team Related Persons Name: MARIELLE MENDOZA Address: home [address] [place] [address] Name: LILO SOUTH Address: home [address] [place] [address] Name: SHIRA PERAZA Name: MAXIMO VASQUEZ Address: home [address] [address]
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
--- OUTSIDE RECORDS SUMMARY | 2024-05-28 08:40 | XMS_ITS | Continuity of Care Document ---
Author Organization [facility] Adult Medicine Address [address] [place] [address]- Care Team Providers Care Mid Level Game Designer Name Role Phone Ken ENNISArline Primary Care Physician [facility]counter [facility] Date[facility]s): 08/15/23 - 09/14/23 [facility] [address] [place] [address]- Attending Physician: Israel Hoffmann Admitting Physician: AdmtrIsrael Referring Physician: AdmtrIsrael Allergies, Adverse Reactions, Alerts [...] tablet, 1 Refills, Maintenance, 09/10/23 7:42:00 EDT, [facility]/pharmacy #[id number], 180.1, cm, 08/15/23 14:25:00 EDT, Height Start Date: 09/10/23 Status: Ordered ipratropium nasal 21 mcg/inh spray 2 sprays, Nares, Both, 2 times a day, # 30 mL, 0 Refills, Maintenance, 08/24/22 15:18:00 EDT, [place], [facility]/pharmacy #[id number], Partial fill upon patient [...] 08/15/23 15:28:00 EDT, Route to Pharmacy Electronically, [id number], [facility]/pharmacy #[id number], 180.1, cm, 08/15/23 14:25:00 EDT, Height Start Date: 08/15/23 Status: Ordered Pulmicort Flexhaler 90 mcg 2 puffs, Inhalation, 2 times a day, rinse mouth after use, # 1 each, 2 Refills, Maintenance, 08/15/23 15:41:00 EDT, [place], [facility]/pharmacy #[id number], Partial fill upon patient request if the prescription is for a schedule II opioid drug., 2 puffs Inhalation... Start Date: 08/15/23 Status: Ordered venlafaxine 37.5 mg oral capsule, extended release 1 capsule, By Mouth, Daily, # 30 capsule, 2 Refills, Maintenance, 04/09/23 17:38:00 EDT, [facility]/pharmacy #[id number], 180.1, cm, 11/06/22 15:42:00 EST, Height Start Date: 04/09/23 Status: Ordered verapamil 240 mg oral capsule, extended release 1 capsule, By Mouth, Daily, # 90 capsule, 1 Refills, Maintenance, 06/09/23 23:02:00 EDT, [id number], 180.1, cm, 04/26/23 9:30:00 EDT, Height Start [...] Confirmed Active Insomnia Confirmed Active *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, pharmacy care coordinator, [facility] [phone] Confirmed Active Pulmonary stenosis Confirmed Active Moderate recurrent major depression Confirmed Active Right bundle branch block (RBBB) Confirmed Active VSD (ventricular septal defect) Confirmed Active Social History Social History Type Response Smoking Status Never smoker; Tobacc o user in household: No entered on: 05/08/17 Sex Hospital Consult note * Event Display: Inpatient Consult Note, Non- Authored Date: [id number] Patient Care team information Care Team Personnel Name: Alexa Lopez RN Position: S RN Supv Member Role: Primary Care Nurse Name: Aleksandra Saavedra MD Position: [facility] General Pediatrics MD Member Role: Lifetime Consulting Physician Name: Arline Rogers DO Position: [facility] Resident Member Role: PCP Address: Address: [address] [place] [address]- Care Team Related Persons Name: LILO SOUTH Address: home [address] [place] [address] Name: SHIRA PERAZA Name: MAXIMO VASQUEZ Address: home [address] [facility] [place], [place] [address]
--- OUTSIDE RECORDS SUMMARY | 2024-05-28 08:40 | XMS_ITS | Continuity of Care Document ---
Author Organization [facility] Adult [facility] Address [address] [place] [address]- Care Team Providers Care Binder Selector Name Role Phone Ken ENNISArline Primary Care Physician [facility]counter [facility] Date[facility]s): 10/07/23 - 11/06/23 [facility] [address] [place] [address]- Attending Physician: Israel Hoffmann Admitting Physician: AdmIsrael [...] tablet, 1 Refills, Maintenance, 09/10/23 7:42:00 EDT, [facility]/pharmacy #[id number], 180.1, cm, 08/15/23 14:25:00 EDT, Height Start Date: 09/10/23 Status: Ordered ipratropium nasal 21 mcg/inh spray 2 sprays, Nares, Both, 2 times a day, # 30 mL, 0 Refills, Maintenance, 08/24/22 15:18:00 EDT, [place], [facility]/pharmacy #[id number], Partial fill upon [...] 08/15/23 15:28:00 EDT, Route to Pharmacy Electronically, [id number], [facility]/pharmacy #[id number], 180.1, cm, 08/15/23 14:25:00 EDT, Height Start Date: 08/15/23 Status: Ordered Pulmicort Flexhaler 90 mcg 2 puffs, Inhalation, 2 times a day, rinse mouth after use, # 1 each, 2 Refills, Maintenance, 08/15/23 15:41:00 EDT, [place], [facility]/pharmacy #[id number], Partial fill upon patient request if the prescription is for a schedule II opioid drug., 2 puffs Inhalation... Start Date: 08/15/23 Status: Ordered venlafaxine 37.5 mg oral capsule, extended release 1 capsule, By Mouth, Daily, # 30 capsule, 2 Refills, Maintenance, 04/09/23 17:38:00 EDT, [facility]/pharmacy #[id number], 180.1, cm, 11/06/22 15:42:00 EST, Height Start Date: 04/09/23 Status: Ordered verapamil 240 mg oral capsule, extended release 1 capsule, By Mouth, Daily, # 90 capsule, 1 Refills, Maintenance, 06/09/23 23:02:00 EDT, [facility], 180.1, cm, 04/26/23 9:30:00 EDT, Height Start [...] Active Insomnia Confirmed Active *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, healthcare administrator, [facility] [phone] Confirmed Active Pulmonary stenosis Confirmed Active Moderate recurrent major depression Confirmed Active Right bundle branch block (RBBB) Confirmed Active VSD (ventricular septal defect) Confirmed Active Social History Social History Type Response Smoking Status Never smoker; Tobacc o user in household: No entered on: 05/08/17 Sex Hospital Consult note * Event Display: Inpatient Consult Note, Non- Authored Date: [id number] Patient Care team information Care Team Personnel Name: Alexa Lopez RN Position: S RN Supv Member Role: Primary Care Nurse Name: Aleksandra Saavedra MD Position: [facility] General Pediatrics MD Member Role: Lifetime Consulting Physician Name: Arline Rogers DO Position: [facility] Resident Member Role: PCP Address: Address: [address] [place] [address]- Care Team Related Persons Name: LILO SOUTH Address: home [address] [place] [address] Name: SHIRA PERAZA Name: MAXIMO VASQUEZ Address: home [address] [facility] [place], [place] [address]
--- OUTSIDE RECORDS SUMMARY | 2024-05-28 08:40 | XMS_ITS | Continuity of Care Document ---
Author Organization [facility] Address [address] [place] [address]- Care Team Providers Care Employee Relations Consultant Name Role Phone Allen Bunn MD Primary Care Physician [facility]counter [facility]): 11/20/22 - 12/20/22 [facility] [address] [place] [address]- Attending Physician: Israel Hoffmann Admitting Physician: AdmIsrael [...] Mouth, Daily, # 15 tablet, 1 Refills, [facility], 180.1, cm, 02/21/22 15:13:00 EDT, Height Start Date: 04/24/22 Status: Ordered bisoprolol 5 mg oral tablet 1 tablet = 5 mg, By Mouth, Daily, # 30 tablet, 11 Refills, Maintenance, 11/08/22 12:41:00 EST, Tablet, [facility]/pharmacy #[id number], 180.1, cm, 11/06/22 15:42:00 EST, Height Start Date: 11/08/22 Stop Date: 11/03/23 Status: Ordered ipratropium nasal 21 mcg/inh spray 2 sprays, Nares, Both, 2 times a day, # 30 mL, 0 Refills, Maintenance, 08/24/22 15:18:00 EDT, [place], [facility]/pharmacy #[id number], Partial fill upon patient request if [...] each, Refills 5, Route to Pharmacy Electronically, [id number], [id number], 180.1, cm, 02/21/22 15:13:00 EDT, Height Start Date: 05/24/22 Status: Ordered venlafaxine 37.5 mg oral capsule, extended release 37.5 mg, 1, capsule, By Mouth, Daily, # 30 capsule, Refills 1, Tot. Refills 1, Maintenance, 06/22/22 14:01:00 EDT, [id number]ertraline, 180.1, cm, 06/22/22 13:15:00 EDT, Height Start Date: 06/22/22 Status: Ordered verapamil 240 mg oral capsule, extended release 1 capsule = 240 mg, By Mouth, Daily, # 30 capsule, 5 Refills, Maintenance, 11/19/22 11:40:00 EST, CR Capsule, [facility]/pharmacy #[id number], 180.1, cm, 11/06/22 15:42:00 EST, Height [...] Confirmed Active Insomnia Confirmed Active *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, managed care director, [facility] [phone] Confirmed Active Pulmonary stenosis Confirmed Active Moderate [...] Care Nurse Name: Allen Bunn MD Position: [facility] Resident Member Role: PCP Address: Address: [address] [place] [address] [place] [address]- [place] Name: Aleksandra Saavedra MD Position: [facility] General Pediatrics MD Member Role: Lifetime Consulting Physician Care Team Related Persons Name: LILO SOUTH Address: home [address] [place] [address] Name: SHIRA PERAZA Name: MAXIMO VASQUEZ Address: home [address] [facility] [place] [address]
--- OUTSIDE RECORDS SUMMARY | 2024-05-28 08:40 | XMS_ITS | Continuity of Care Document ---
Author Organization [facility] Address [address] [place] [address]- Care Team Providers Care Choral Director Name Role Phone Allen Bunn MD Primary Care Physician Encounter [facility] [place](s): 11/24/22 - 03/24/23 [facility] [address] [place] [address]- Attending Physician: Not on Staff, Attending MD Referring Physician: Speedy De La Rosa Allergies, [...] Mouth, Daily, # 15 tablet, 1 Refills, [id number], 180.1, cm, 02/21/22 15:13:00 EDT, Height Start Date: 04/24/22 Status: Ordered bisoprolol 5 mg oral tablet 1 tablet = 5 mg, By Mouth, Daily, # 30 tablet, 11 Refills, Maintenance, 11/08/22 12:41:00 EST, Tablet, [facility]/pharmacy #[id number], 180.1, cm, 11/06/22 15:42:00 EST, Height Start Date: 11/08/22 Stop Date: 11/03/23 Status: Ordered ipratropium nasal 21 mcg/inh spray 2 sprays, Nares, Both, 2 times a day, # 30 mL, 0 Refills, Maintenance, 08/24/22 15:18:00 EDT, [place], [facility]/pharmacy #[id number], Partial fill upon patient request if [...] each, Refills 5, Route to Pharmacy Electronically, [id number], [id number], 180.1, cm, 02/21/22 15:13:00 EDT, Height Start Date: 05/24/22 Status: Ordered venlafaxine 37.5 mg oral capsule, extended release 1 capsule, By Mouth, Daily, STOP SERTRALINE., # 30 capsule, 1 Refills, Maintenance, 02/14/23 9:07:00 EDT, [id number], 180.1, cm, 11/06/22 15:42:00 EST, Height Start [...] Confirmed Active Insomnia Confirmed Active *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, 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, [facility] [phone] Confirmed Active Pulmonary stenosis Confirmed Active Moderate recurrent major depression Confirmed Active Right bundle branch block (RBBB) Confirmed Active VSD (ventricular septal defect) Confirmed Active Social History Social History Type Response Smoking Status Never smoker; Tobacc o user in household: No entered on: 05/08/17 Sex Patient Care team information Care Team Personnel Name: Alexa Lopez RN Position: [facility] RN Supv Member Role: Primary Care Nurse Name: Allen Bunn MD Position: [facility] Resident Member Role: PCP Address: Address: [address] [place] [address] Name: Aleksandra Saavedra MD Position: [facility] General Pediatrics MD Member Role: Lifetime Consulting Physician Care Team Related Persons Name: LILO SOUTH Address: [address] [place] [address] Name: SHIRA PERAZA Name: MAXIMO VASQUEZ Address: home [address] [facility], [place] [address]
== END 2024-05-27 23:01 | disposition home or self-care (01) ==
PROVIDERS: Emergency Provider Internal Medicine
DX: I47.10 Supraventricular tachycardia, unspecified (principal); I10 Essential (primary) hypertension; I45.10 Unspecified right bundle-branch block; Z79.899 Other long term (current) drug therapy
CPT/HCPCS: 36415; 80048; 80076; 83690; 84484; 85025; 93005; 96374; 99284; 99285

== ENCOUNTER → 2024-05-27 21:10 | Outpatient (BNV) | payer OTHER, SELFPAY | PROVIDERS: Emergency Provider Internal Medicine; Visit Provider Internal Medicine Cardiovascular Disease | DX: R00.0 Tachycardia, unspecified (principal) | CPT/HCPCS: 93010 ==